=== PATIENT | male | born 1955 | race Caucasian/White ===

== ENCOUNTER → 2016-08-19 | Outpatient (CLI) | payer BC ==
[~2016-08-19] MED LIST: ALBU17IN INH; ALBU83IN INH; ALBUTEROL LIQ INH; ASPI81TA45 PO; ASPI81TA83 OR; ATROVENT0.02% INH; BUDE0.5S IN; DELTASONE PO; DOXY100T OR; DOXY100T16 PO; DULE200A IN; DUONSOL INH; FOLI1TAB2 PO; HYDR12.55 PO; HYDR25TA6 OR; IPRASOL4 INH; ISOVUE-370 76% 100ML VIAL (Q9967) As Ordered ONE; K-TA10TA2 PO; MELO7.5T6 PO; MYLASUS6 PO; NICO14DI3 TD; No Historical Meds; POTA595T8 PO; PRED20TA OR; PRED20TA PO; PREDNISONE PO; TIOT18INH INH; TYLE325T5 PO; VITA-5 PO; VITA100T OR; VITA100T2 PO; ZITH500T OR; dulera INH
--- NOTE | 2016-08-19 08:21 | REP ---
Clinical: Shortness of breath with weight loss and high risk factors. Technique: Axial contrast enhanced images from the thoracic inlet to the upper abdomen using 100 ml Isovue 370 intravenous contrast material with coronal and sagittal re-formations. Comparison: 02/01/2015. Findings: The lung pascal appear symmetric and well-aerated. Subtle early bronchiectasis cannot be excluded. Very subtle small areas of non solid/ground-glass opacities are identified in the upper lobes with the most prominent such area identified at the basilar right upper lobe (image 46) and measures roughly 9.5 mm maximal diameter. No further consolidation, nodule or mass lesion. No pleural effusion/reaction or pneumothorax. Mediastinum demonstrates a normal heart/pericardium and thoracic aorta. No axillary, hilar, or mediastinal adenopathy is appreciated. Musculoskeletal structures demonstrate age-related change without focal osseous abnormality. Atrophic right kidney incompletely evaluated. Impression: 1. Very subtle a few small non solid opacities may reflect changes related to pneumonia / bronchitis. Largest and most defined areas noted in the basilar right upper lobe measuring 9.5 mm maximal diameter. 6-month follow-up may be warranted given the patient's high risk factors. 2. No further significant pulmonary parenchymal or mediastinal process appreciated. 3. Atrophic right kidney incompletely evaluated. Signed by Gautam Rader MD 08/19/2016 08:12 A
== END ==
LOC: M RAD 06:54
PROVIDERS: ATTEND Internal Medicine Medical Oncology
DX: R91.8 Other nonspecific abnormal finding of lung field (principal)
CPT/HCPCS: 71260; Q9967

== ENCOUNTER → 2016-11-12 | Outpatient (CLI) | payer BC ==
[~2016-11-12] MED LIST changes: -ISOVUE-370 76% 100ML VIAL (Q9967) As Ordered ONE
--- NOTE | 2016-11-12 08:31 | REP ---
CT of the chest without IV contrast: Comparisons are 08/19/2016 and 02/01/2015. The upper lobe ground-glass opacities identified on 08/19/2016 have resolved and are no longer present. This is compatible with transient infiltrates. There are no new infiltrates. No pleural effusions. No new nodules or masses. There is no mediastinal or axillary lymphadenopathy. In the absence of IV contrast the study is insensitive for hilar adenopathy. The unenhanced thoracic aorta is unremarkable. Cardiac size is normal. Upper abdomen: There is marked right renal atrophy, unchanged. Visualized portion of the left kidney is unremarkable. Visualized portions of the unenhanced liver, gallbladder, pancreas and spleen are unremarkable. Impression: Essentially negative CT scan of the chest. Chronic marked right renal atrophy is again noted. The bilateral upper lobe ground-glass densities noted on the comparison study of 08/19/2016 are no longer present, compatible with transient infiltrates. Signed by Jonah Rutledge MD 11/12/2016 08:22 A
== END ==
LOC: M RAD 06:55
PROVIDERS: ATTEND Internal Medicine Pulmonary Disease
DX: R91.1 Solitary pulmonary nodule (principal)

== ENCOUNTER 2016-12-10 07:45 | Emergency (ER) | payer BC ==
[2016-12-10] MEDS ORDERED: FLOM5CAP PO (08:05)
[2016-12-10] MEDS ORDERED: FINA5TAB2 PO (08:05)
[2016-12-10] MEDS ORDERED: PROP60TA14 PO (08:05)
[2016-12-10] MEDS ORDERED: BUPR1TAB52 PO (08:05)
[2016-12-10] MEDS ORDERED: ALBUTEROL SULFATE 2.5 MG/0.5 ML INH NEB SOLN INH ONE (08:15)
[2016-12-10] MEDS ORDERED: IPRATROPIUM 0.5MG/ALBUTEROL 2.5MG INH SOL UD 3ML (DUONEB)(J7620) NEB ONE ×2 (08:15→09:15)
[2016-12-10] MEDS ORDERED: methylPREDNISolone INJ 125 MG/2 ML VIAL (J2930) IV ONE (08:15)
[2016-12-10 08:21] LABS: BASO # 0.1 K/mm3 (0.0-0.2); BASO % 0.9 % (0.0-1.0); EOS # 0.3 K/mm3 (0.0-0.50); EOS % 4.5 % (0.0-3.0); LARGE UNSTAINED CELL # 0.1 K/mm3 (0.0-0.4); LARGE UNSTAINED CELL % 1.4 % (0.0-4.0); LYMPH # 1.6 K/mm3 (1.5-4.5); LYMPH % 22.8 % (24.0-44.0); MEAN CORPUSCULAR HEMOGLOBIN 33.4 pg (27.0-33.0); MEAN CORPUSCULAR HGB CONC 33.3 g/dl (32.0-36.5); MEAN CORPUSCULAR VOLUME 100.3 fl (80.0-96.0); MONO # 0.7 K/mm3 (0.0-0.8); MONO % 9.8 % (0.0-5.0); NEUTROPHILS # 4.1 K/mm3 (1.8-7.7); NEUTROPHILS % 60.6 % (36.0-66.0); PLATELET COUNT, AUTOMATED 274 k/mm3 (150-450); RED CELL DISTRIBUTION WIDTH 12.2 % (11.5-14.5); WHITE BLOOD COUNT 6.7 K/mm3 (4.0-10.0)
[2016-12-10 08:22] LABS: ABG BASE EXCESS 0.7 (-2.0-2.0); ABG HCO3 25.6 MEQ/L (22.0-26.0); ABG PARTIAL PRESSURE CO2 42.1 mmHg (35.0-45.0); ABG PARTIAL PRESSURE O2 94.6 mmHg (75.0-100.0); ABG STANDARD HCO3 25.1 MEQ/L (22.0-26.0); ABG TOTAL CO2 26.9 MEQ/L (23.0-31.0); ABG pH (ARTERIAL) 7.402 UNITS (7.350-7.450)
--- NOTE | 2016-12-10 08:24 | REP ---
Clinical: Cough. Dyspnea . Comparison: 04/11/2016 . Findings: The mediastinum and cardiac silhouette are stable and within normal limits for portable technique. The lung pascal are clear without acute consolidation, effusion, or pneumothorax. Skeletal structures are intact. Impression: Normal portable chest x-ray Signed by Gautam Rader MD 12/10/2016 08:16 A
[2016-12-10 08:48] LABS: ALBUMIN 3.5 GM/DL (3.2-5.2); ALBUMIN/GLOBULIN RATIO 1.09 (1.00-1.93); ALKALINE PHOSPHATASE 85 U/L (45-117); ALT/SGPT 21 U/L (12-78); ANION GAP 5 MEQ/L (8-16); AST/SGOT 10 U/L (15-37); BILIRUBIN,DIRECT 0.1 MG/DL (0.0-0.2); BILIRUBIN,TOTAL 0.5 MG/DL (0.2-1.0); BLOOD UREA NITROGEN 14 MG/DL (7-18); CARBON DIOXIDE LEVEL 29 MEQ/L (21-32); CHLORIDE LEVEL 104 MEQ/L (98-107); CREATININE FOR GFR 1.19 MG/DL (0.70-1.30); GLOMERULAR FILTRATION RATE > 60.0 (>49); GLUCOSE, FASTING 91 MG/DL (80-110); SODIUM LEVEL 138 MEQ/L (136-145); THYROXINE (T4) 9.1 UG/DL (4.5-12.0); TOTAL PROTEIN 6.7 GM/DL (6.4-8.2)
[2016-12-10] MEDS ORDERED: ISOVUE-370 76% 100ML VIAL (Q9967) As Ordered ONE (09:19)
--- NOTE | 2016-12-10 10:06 | REP ---
Clinical: Acute chest pain. Technique: Axial contrast enhanced images from the thoracic inlet to the upper abdomen using 100 ml Isovue 370 intravenous contrast material with coronal and sagittal re-formations. Findings: Satisfactory enhancement of the pulmonary vasculature is achieved and no filling defects are identified to suggest pulmonary embolus. Mild diffuse emphysematous changes are suggested without focal consolidation, significant nodule or mass lesion. No pleural effusion. Mild bronchiectasis noted. No pneumothorax. A small left posterior diaphragmatic hernia/eventration is appreciated. Atherosclerotic changes to the thoracic aorta and coronary arteries noted without aortic aneurysm/dissection or cardiomegaly. No pericardial effusion. No adenopathy. Musculoskeletal structures intact. Impression: No evidence for pulmonary embolus. Mild diffuse emphysematous changes. No acute pleuroparenchymal or mediastinal process. Signed by Gautam Rader MD 12/10/2016 09:58 A
[2016-12-10 10:39] VITALS: O2SAT 91
[2016-12-10] MEDS ORDERED: PRED20TA PO (10:42)
[2016-12-10] MEDS ORDERED: MOXI1TAB PO (10:46)
[2016-12-10 11:12] VITALS: BP 112/76
--- NOTE | 2016-12-10 12:19 | ECGEPIP ---
Stationary ECG Study [facility] - ED Test Date: 2016-12-10 Pat Name: DANG QUINONES Department: Room: - Gender: M Stock Pitcher: JT : [id number] Requested By: Konstantin Rboertson Order Number: [id number] Reading MD: Gretchen De La Cruz Measurements Intervals [place] Rate: 79 P: 78 IN: 164 QRS: 66 QRSD: 85 T: 72 QT: 367 QTc: 423 Interpretive Statements SINUS RHYTHM RIGHT VENTRICULAR CONDUCTION DELAY DECREASED RATE 02/09/16 Electronically Signed On 12-10-2016 12:19:13 EDT by Gretchen De La Cruz
== END 2016-12-10 11:17 | disposition home or self-care (01) ==
LOC: M ED 08:40
DX: J20.9 Acute bronchitis, unspecified (principal); J44.1 Chronic obstructive pulmonary disease with (acute) exacerbation; Z90.89 Acquired absence of other organs; Z79.51 Long term (current) use of inhaled steroids; Z79.82 Long term (current) use of aspirin; Z79.899 Other long term (current) drug therapy
CPT/HCPCS: 36415; 36600; 71010; 71275; 80048; 80076; 82550; 82553; 82803; 83605; 83880; 84436; 84443; 85025; 87040; 87804; 93005; 93041; 94640; 96374; 99284; J2930; Q9967

== ENCOUNTER 2017-01-17 00:06 | Inpatient (IN) | payer BC ==
[~2017-01-17] VITALS: Ht 162.6 cm; Wt 49.1 kg
[~2017-01-17 00:06] MED LIST changes: +BUPR1TAB52 PO; +FINA5TAB2 PO; +FLOM5CAP PO; -FOLI1TAB2 PO; +FOLI1TAB4 PO; -MELO7.5T6 PO; +MELO7.5T7 PO; +MOXI1TAB PO; +PROP60TA14 PO
[2017-01-17] MEDS ORDERED: IPRATROPIUM 0.5MG/ALBUTEROL 2.5MG INH SOL UD 3ML (DUONEB)(J7620) As Ordered ONE ×2 (00:15→00:30)
[2017-01-17 00:35] LABS: ABG PARTIAL PRESSURE CO2 44.3 mmHg (35.0-45.0); ABG PARTIAL PRESSURE O2 212.7 mmHg (75.0-100.0); ABG STANDARD HCO3 27.2 MEQ/L (22.0-26.0); ABG TOTAL CO2 29.4 MEQ/L (23.0-31.0); ABG pH (ARTERIAL) 7.419 UNITS (7.350-7.450)
[2017-01-17] MEDS: IPRATROPIUM 0.5MG/ALBUTEROL 2.5MG INH SOL UD 3ML (DUONEB)(J7620) NEB PRN ×2 (00:46→00:47)
[2017-01-17 00:52] LABS: BASO # 0.1 K/mm3 (0.0-0.2); BASO % 0.8 % (0.0-1.0); EOS # 0.3 K/mm3 (0.0-0.50); EOS % 4.4 % (0.0-3.0); LARGE UNSTAINED CELL # 0.1 K/mm3 (0.0-0.4); LARGE UNSTAINED CELL % 1.7 % (0.0-4.0); LYMPH # 2.7 K/mm3 (1.5-4.5); LYMPH % 33.3 % (24.0-44.0); MEAN CORPUSCULAR HEMOGLOBIN 33.7 pg (27.0-33.0); MEAN CORPUSCULAR HGB CONC 33.3 g/dl (32.0-36.5); MEAN CORPUSCULAR VOLUME 101.1 fl (80.0-96.0); MONO # 0.8 K/mm3 (0.0-0.8); MONO % 10.5 % (0.0-5.0); NEUTROPHILS # 3.8 K/mm3 (1.8-7.7); NEUTROPHILS % 49.3 % (36.0-66.0); PLATELET COUNT, AUTOMATED 312 k/mm3 (150-450); RED CELL DISTRIBUTION WIDTH 12.7 % (11.5-14.5); WHITE BLOOD COUNT 7.7 K/mm3 (4.0-10.0)
[2017-01-17 01:11] LABS: ANION GAP 1 MEQ/L (8-16); BLOOD UREA NITROGEN 17 MG/DL (7-18); CALCIUM LEVEL 8.6 MG/DL (8.8-10.2); CARBON DIOXIDE LEVEL 35 MEQ/L (21-32); CHLORIDE LEVEL 102 MEQ/L (98-107); CREATININE FOR GFR 1.17 MG/DL (0.70-1.30); GLOMERULAR FILTRATION RATE > 60.0 (>49); GLUCOSE, FASTING 82 MG/DL (80-110); POTASSIUM SERUM 4.3 MEQ/L (3.5-5.1); SODIUM LEVEL 138 MEQ/L (136-145)
[2017-01-17] MEDS ORDERED: IPRATROPIUM 0.5MG/ALBUTEROL 2.5MG INH SOL UD 3ML (DUONEB)(J7620) NEB ONE (05:15)
[2017-01-17] MEDS ORDERED: VITA100072 PO (05:28)
[2017-01-17] MEDS ORDERED: PROP40TA PO (05:28)
[2017-01-17] MEDS ORDERED: ASPI81TA21 PO (05:28)
[2017-01-17] MEDS ORDERED: SPIR1CAP INH (05:28)
[2017-01-17] MEDS ORDERED: BUPR100T3 PO (05:28)
[2017-01-17] MEDS ORDERED: PRED10TA2 PO (05:28)
--- NOTE | 2017-01-17 05:50 | ECGEPIP ---
Stationary ECG Study [facility] - ED Test Date: 2017-01-17 Pat Name: DANG QUINONES Department: Room: - Gender: M Roll Picker: PadillaB: [id number] Requested By: EDNA Craig Order Number: [id number] Reading MD: Gen Cain Measurements Intervals [place] Rate: 87 P: 82 SD: 152 QRS: 65 QRSD: 78 T: 61 QT: 359 QTc: 433 Interpretive Statements SINUS RHYTHM POSSIBLE LEFT ATRIAL ENLARGEMENT INC. RBBB EARLY REPOLARIZATION Electronically Signed On 01-17-2017 5:50:30 EDT by Gen Cain
--- NOTE | 2017-01-17 06:27 | HPEPDOC ---
General Date of Admission Primary Care Physician: ANNITA LOMAX MD Attending Physician: FOREIGN GAMBOA MD Chief Complaint The patient is a 61-year-old male admitted with a reason for visit of SOB. Source: Patient Exam Limitations: No limitations Timing/Duration: 24 hours Severity: Severe Associated Symptoms: Cough, Malaise, Shortness of breath History of Present Illness 61-year-old male, history of COPD not on home oxygen, presented with shortness of breath, cough, dyspnea on exertion for last 1 day. Denies fever, chills, Long travel, sick contact. He has been taking the inhalers and prednisone daily and has a regular follow with pulmonary physician, but his symptoms did not improve Home Medications Scheduled (Bupropion HCl Sr) 100 Mg Tab, 100 MG PO BID, (Reported) Aspirin (Aspir-Low) 81 Mg Tab, 81 MG PO DAILY, (Reported) Cyanocobalamin (Vitamin B12) 1,000 Mcg Tab, 1,000 MCG PO DAILY, (Reported) Finasteride (Finasteride) 5 Mg Tab, 5 MG PO DAILY, (Reported) Prednisone (Prednisone) 10 Mg Tab, 10 MG PO DAILY, (Reported) Propranolol HCl (Propranolol HCl) 40 Mg Tab, 40 MG PO DAILY, (Reported) Tamsulosin Hydrochloride (Flomax) 0.4 Mg Cap, 0.4 MG PO DAILY, (Reported) Thiamine HCl (Vitamin B-1) 100 Mg Tab, 100 MG PO DAILY, (Reported) Tiotropium [place] Monohydrate (Spiriva Handihaler) 18 Mcg Cap, 1 INHALATION INH DAILY, (Reported) Scheduled PRN Albuterol Sulfate (Ventolin Hfa) 200 Puff/8 Gm Aers, 2 PUFF INH Q4H PRN for SHORTNESS OF BREATH, (Reported) Albuterol/Ipratropium (Ipratropium [place]/Albut 0.5-2.5 (3) mg/3Ml) 1 Julio Cesar Julio Cesar, 1 JULIO CESAR INH QID PRN for SHORTNESS OF BREATH, (Reported) Allergies Coded Allergies: No Known Allergies (Verified , 01/20/11) Past Medical History Medical History COPD Surgical History None Family History Significant Family History: No pertinent family hx Social History * Smoker: Denies Alcohol: Denies Drugs: denies Recent Travel/Sick Contacts: Denies: Recent travel, Recent sick contacts Psychosocial History: No pertinent psych hx Review of Symptoms Constitutional: Reports: Malaise, Fatigue, Denies: Chills, Fever, Night Sweats Eyes: Denies: Pain, Vision change ENT: Denies: Head Aches, Ear Pain, Dysphagia Skin: Denies: Rash, Lesions, Breakdown Pulmonary: Reports: Dyspnea, Cough Cardiovascular: Denies: Chest Pain, Palpitations, Orthopnea, Paroxysmal Noc. Dyspnea, Lt Headedness Gastrointestinal: Denies: Nausea, Vomiting, Abdominal Pain, Diarrhea Genitourinary: Denies: Dysuria, Frequency, Incontinence, Retention Hematologic: Denies: Bruising, Bleeding Excessively Musculoskeletal: Denies: Neck Pain, Back Pain, Joint Pain, Muscle Pain, Spasms Neurological: Denies: Weakness, Numbness, Change in speech, Confusion Psych: Reports: Mood Normal, Denies: Depression, Memory Issues Physical Examination General Exam: Positive: Alert, No Acute Distress Eye Exam: Positive: PERRLA, Conjunctiva & lids normal, EOMI, Negative: Sclera icteric ENT Exam: Positive: Atraumatic, Mucous membr. moist/pink, Pharynx Normal Neck Exam: Positive: Supple, Negative: JVD, thyromegaly Chest Exam: Positive: Rhonchi, Wheezing Heart Exam: Positive: Rate Normal, Regular Rhythm, Normal S1, Normal S2, Negative: Murmurs, Rubs Telemetry: Positive: No significant arrhythmia Abdomen Exam: Positive: Normal bowel sounds, Soft, Negative: Tenderness, Hepatospenomegaly Extremity Exam: Positive: Normal pulses, Negative: Clubbing, Cyanosis, Edema Skin Exam: Positive: Nl turgor and temperature, Negative: Breakdown, Lesion Neuro Exam: Positive: Normal Speech, Cranial Nerves 3-12 NL, Reflexes 2+ Psych Exam: Positive: Mental status NL, Mood NL, Oriented x 3 Vital Signs Vital Signs Date Time Temp Pulse Resp B/P (MAP) Pulse Ox O2 Delivery O2 Flow Rate FiO2 01/17/17 05:41 94 131/82 (98) 95 01/17/17 01:00 Nasal Cannula 4.0 01/17/17 00:20 40 01/17/17 00:13 97.0 20 Laboratory Data Labs 24H Laboratory Tests 2 01/17/17 00:31: Blood Gas Bicarbonate Standard 27.2H, Arterial Blood pH 7.419, Arterial Blood Partial Pressure CO2 44.3, Arterial Blood Partial Pressure O2 212.7H, Arterial Blood Total CO2 29.4, Arterial Blood HCO3 28.0H, Arterial Blood Base Excess 3.0H , Arterial Blood Oxygen Saturation 99.4H 01/17/17 00:33: White Blood Count 7.7, Red Blood Count 4.35, Hemoglobin 14.6, Hematocrit 43.9, Mean Corpuscular Volume 101.1H, Mean Corpuscular Hemoglobin 33.7H, Mean Corpuscular Hemoglobin Concent 33.3, Red Cell Distribution Width 12.7, Platelet Count 312, Neutrophils (%) (Auto) 49.3, Lymphocytes (%) (Auto) 33.3, Monocytes ( %) (Auto) 10.5H, Eosinophils (%) (Auto) 4.4H, Basophils (%) (Auto) 0.8, Neutrophils # (Auto) 3.8, Lymphocytes # (Auto) 2.7, Monocytes # (Auto) 0.8, Eosinophils # (Auto) 0.3, Basophils # (Auto) 0.1, Large Unclassified Cells % 1.7 , Large Unclassified Cells # 0.1, Anion Gap 1L, Glomerular Filtration Rate > 60.0, Lactic Acid Level 0.5, Blood Urea Nitrogen 17, Creatinine 1.17, Sodium Level 138, Potassium Level 4.3, Chloride Level 102, Carbon Dioxide Level 35H, Calcium Level 8.6L, Total Creatine Kinase 49, Creatine Kinase MB 2.2, Creatine Kinase MB Relative Index 4.48H, Troponin I < 0.02, B-Type Natriuretic Peptide 20.0 CBC/BMP Laboratory Tests 01/17/17 00:33 Red Blood Count 4.35, Mean Corpuscular Volume 101.1 H, Mean Corpuscular Hemoglobin 33.7 H, Mean Corpuscular Hemoglobin Concent 33.3, Red Cell Distribution Width 12.7, Neutrophils (%) (Auto) 49.3, Lymphocytes (%) (Auto) 33.3, Monocytes (%) (Auto) 10.5 H, Eosinophils (%) (Auto) 4.4 H, Basophils (%) ( Auto) 0.8, Neutrophils # (Auto) 3.8, Lymphocytes # (Auto) 2.7, Monocytes # (Auto ) 0.8, Eosinophils # (Auto) 0.3, Basophils # (Auto) 0.1, Calcium Level 8.6 L, Total Creatine Kinase 49 Microbiology Microbiology 01/17/17 Blood Culture, Received Pending 01/17/17 Blood Culture, Received Pending Assessment/Plan 61-year-old male, a history of COPD not on home oxygen, presented with with this shortness of breath, likely due to COPD exacerbation Problems (1) Tobacco abuse Problem Text: Smoking cessation counseling Nicotine patch 14 mg daily (2) Acute respiratory failure with hypoxia Status: Acute Problem Text: As started. Oxygen DuoNeb IV Solu-Medrol. Troponin EKG unremarkable. We will get echocardiogram, ABG normal antibiotic was started due to severe COPD Plan / VTE VTE Prophylaxis Ordered?: Yes Plan Diet: Continue Current Activity: Continue Current Medications: Start Antibiotics, Start Steroids Diagnostics: Repeat Labs in AM, TTE Anticipated Discharge: Home NEO GOLDSTEIN MD Jan 17, 2017 06:27
[2017-01-17] MEDS ORDERED: methylPREDNISolone INJ 125 MG/2 ML VIAL (J2930) IV SCH (07:00)
[2017-01-17] MEDS ORDERED: IPRATROPIUM 0.5MG/ALBUTEROL 2.5MG INH SOL UD 3ML (DUONEB)(J7620) NEB PRN (07:30)
[2017-01-17 08:00] VITALS: BP 125/72
[2017-01-17] MEDS ORDERED: IPRATROPIUM 0.5MG/ALBUTEROL 2.5MG INH SOL UD 3ML (DUONEB)(J7620) NEB SCH (08:00)
[2017-01-17] MEDS: IPRATROPIUM 0.5MG/ALBUTEROL 2.5MG INH SOL UD 3ML (DUONEB)(J7620) NEB SCH ×3 (08:08→20:00)
[2017-01-17] MEDS: NICOTINE 14 MG/24 HR TRANSDERMAL TD SCH (09:00)
[2017-01-17] MEDS ORDERED: PANTOPRAZOLE 40MG INJ (PROTONIX) (C9113) IV SCH (09:00)
[2017-01-17] MEDS ORDERED: predniSONE 10 MG TAB PO SCH (09:00)
[2017-01-17] MEDS: buPROPion (WELLBUTRIN SR) 100 MG SR TAB PO SCH ×2 (10:08→20:51)
[2017-01-17] MEDS: ASPIRIN 81 MG ENTERIC TAB PO SCH (10:08)
[2017-01-17] MEDS: TAMSULOSIN 0.4 MG CAP PO SCH (10:08)
[2017-01-17] MEDS: CYANOCOBALAMIN 500 MCG TAB PO SCH (10:09)
[2017-01-17] MEDS: FINASTERIDE 5 MG TAB PO SCH (10:09)
[2017-01-17] MEDS: THIAMINE 100 MG TAB PO SCH (10:09)
[2017-01-17] MEDS: methylPREDNISolone INJ 125 MG/2 ML VIAL (J2930) IV SCH ×3 (10:10→23:17)
[2017-01-17] MEDS: LevoFLOXacin IV 500 MG in APPROPRIATE DILUENT 1 EA IV SCH (10:11)
[2017-01-17] MEDS: PROPRANOLOL 20 MG TAB PO SCH (10:13)
[2017-01-17] MEDS: TIOTROPIUM INHALER/CAPSULE (SPIRIVA) INH SCH (11:28)
[2017-01-17 12:00] VITALS: BP 142/75
--- NOTE | 2017-01-17 12:12 | REP ---
Clinical: Dyspnea. Comparison: 12/10/2016. Findings: Stable COPD and emphysematous changes are again noted. No acute consolidation, effusion, or pneumothorax. Mediastinum and cardiac silhouette are stable. Skeletal structures intact. Impression: Stable COPD and emphysematous changes. No acute cardiopulmonary process appreciated. Signed by Gautam Rader MD 01/17/2017 07:45 A
[2017-01-17] MEDS ORDERED: SLF 3 ML SYR IV PRN (15:00)
--- NOTE | 2017-01-17 15:15 | IPNPDOC ---
Text Note Date of Service The patient was seen on 01/17/17. NOTE Subjective: Patient is a 61 year old male with a PMHx of COPD (steroid dependent, not oxygen dependent), HTN, BPH and Depression who presented to the ER with complaints of shortness of breath associated with a productive cough. He notes that he has been treated for COPD exacerbations before in the past. They frequently occur in the summer months. He notes that he has been started on Prednisone at baseline for the summer. Patient was admitted for likely COPD exacerbation. Patient was seen and examined at the bedside. He notes improvement in his breathing. He still has a cough. Objective: Vitals (See below) General: Lying in bed, no acute distress, comfortable, AAOx3 HEENT: NC, AT CVS: RRR, +S1S2 Lungs: Fair air entry b/l, mild expiratory wheezing Abdomen: Soft, ND, NT, +BSx4 Extremities: +PPx4, - Edema, - Calf tenderness Assessment and plan: 1. Shortness of breath - likely 2/2 acute COPD exacerbatino - Presented with SOB, productive cough and wheezing - Physical currently reveals mild wheezing; improved from admission - Requires supplemental oxygen at this time; not oxygen dependent at home - Labs unrevealing; ABG without any evidence of CO2 retention - CXR 01/17: Stable COPD and emphysematous changes - s/p Soumedrol loading dose - c/w Solumedrol, Levaquin (Day #1), Spiriva and Duoneb PRN - Will add Advair 2. HTN - c/w Atenolol with holding parameters - Will restart at lower dose 3. BPH - c/w Finasteride and Tamsulosin 4. Depression - c/w Bupropion 5. Smoking dependence - c/w Nicotine patch 6. GI prophylaxis - will discontinue protonix IV - start protonix PO 7. DVT prophylaxis - Will start Heparin SQ VS,Fishbone, I+O VS, Fishbone, I+O Laboratory Tests 01/17/17 00:33 Red Blood Count 4.35, Mean Corpuscular Volume 101.1 H, Mean Corpuscular Hemoglobin 33.7 H, Mean Corpuscular Hemoglobin Concent 33.3, Red Cell Distribution Width 12.7, Neutrophils (%) (Auto) 49.3, Lymphocytes (%) (Auto) 33.3, Monocytes (%) (Auto) 10.5 H, Eosinophils (%) (Auto) 4.4 H, Basophils (%) ( Auto) 0.8, Neutrophils # (Auto) 3.8, Lymphocytes # (Auto) 2.7, Monocytes # (Auto ) 0.8, Eosinophils # (Auto) 0.3, Basophils # (Auto) 0.1, Calcium Level 8.6 L, Total Creatine Kinase 49 Vital Signs Date Time Temp Pulse Resp B/P (MAP) Pulse Ox O2 Delivery O2 Flow Rate FiO2 01/17/17 12:17 Nasal Cannula 3.0 01/17/17 12:00 97.8 94 20 142/75 (97) 95 01/17/17 00:20 40 FOREIGN GAMBOA MD Jan 17, 2017 15:15
[2017-01-17 16:00] VITALS: BP 116/68
[2017-01-17 19:46] VITALS: BP 130/70
[2017-01-17] MEDS: ADVAIR DISKUS 250/50 INH PWD INH SCH (20:49)
[2017-01-17] MEDS: HEPARIN SOD (PORCINE) 5000 UNITS/ML VIAL SQ SCH (20:51)
[2017-01-17] MEDS: SLF 3 ML SYR IV SCH (20:55)
--- NOTE | 2017-01-17 22:47 | ECHO ---
DATE OF PROCEDURE: 01/17/2017 REFERRING PHYSICIAN: Dr. Landon De Leon INDICATION: Dyspnea. HEIGHT: 163 cm WEIGHT: 50 kg MEASUREMENTS Aortic root: 3.0 cm LVOT: 2.2 cm Left atrium: 2.9 cm Ventricular septum: 1.00 cm Posterior wall: 1.04 cm Left ventricle diastole: 4.0 cm Inferior vena cava: 1.7 cm DOPPLER MEASUREMENTS: Aortic valve velocity: 117 cm/s LVOT velocity: 62.4 cm/s Mitral E velocity: 54.3 cm/s Mitral A velocity: 73.5 cm/s Mitral deceleration time: 187 ms Very mild pulmonic regurgitation Pulmonary artery systolic pressure: 46 mmHg by pulmonary acceleration time method. MITRAL ANNULAR TISSUE DOPPLER: E-prime septal: 7.4 cm/s E-prime lateral: 10.1 cm/s DESCRIPTION: Rhythm was sinus. This was a moderately technically difficult echocardiogram. No parasternal views were available. No pericardial effusion. CONCLUSIONS: 1. Normal left ventricle size and wall thickness. Normal LV regional wall motion and wall thickening. Normal LV systolic function. LVEF 65% by visual estimate. Normal LV diastolic function for age. 2. Suggestive of moderate elevation of pulmonary artery systolic pressure (46 mmHg). Normal right ventricle size and systolic function. 3. Mild aortic valve sclerosis of a 3-cuspid aortic valve. 4. Moderately technically difficult echocardiogram.
[2017-01-17] MEDS ORDERED: VANCOMYCIN HCL 1,000 MG, VIAL MATE ADAPTER 1 EACH in D5W 250 ML IV ONE (23:00)
[2017-01-17 23:59] VITALS: BP 121/75
[2017-01-18] MEDS: IPRATROPIUM 0.5MG/ALBUTEROL 2.5MG INH SOL UD 3ML (DUONEB)(J7620) NEB SCH ×4 (01:24→20:00)
--- NOTE | 2017-01-18 02:56 | PHACANCOPD ---
PHARMACY VANCOMYCIN DOSING Pt Demographics Demographics Patient Age:61 , Weight:48.300 , Gender: male Adjusted Body Weight Date: 01/18/17, Adjusted Body Weight: [48.3] Kg ACTUAL WEIGHT Vancomycin Vancomycin indication: COPD EXACERBATION Vancomycin Target Ranges: 10-20 mcg/ml Vancomycin Load Y/N: No Load Dose Date Time Vancomycin Load Dose: Date: Time: Vancomycin Dose Date: 01/18/17. Current Vancomycin Dose: [1 GM@2300,THEN 750MG Q12H@1100] Intermittent Dosing?: No Labs Micro Microbiology 01/17/17 Blood Culture - Preliminary, Resulted 01/17/17 Blood Culture - Preliminary, Resulted No growth after 24 hours . All specim... Creatinine Clearance Date:01/18/17. Creatinine Clearance: [44.15].CALCULATED Pending Labs Vancomycin trough for 01/19@1000 Assessment and Plan Maintaining Current Dose?: Yes Reason for dose change: No Dose Change Pharmacist Note Pharmacist Note Date: 01/18/17. Pharmacist note:Patient admitted w/COPD exacerbation:61 YOM,SCR= 1.17: calculated CRCL= 44.15,wt=48.3kg.: administered 1 GM Vanco@2316 on 01/17, followed with a 750mg iv Q12h regimen. First trough to be drawn prior to the fourth dose (01/19@1000):also receiving Levofloxacin 500mg IV q24h@0900: will continue ti follow levels and labs. [facility] Jan 18, 2017 02:56
[2017-01-18 04:00] VITALS: BP 120/65
[2017-01-18 06:00] LABS: MEAN CORPUSCULAR HEMOGLOBIN 33.9 pg (27.0-33.0); MEAN CORPUSCULAR HGB CONC 33.3 g/dl (32.0-36.5); MEAN CORPUSCULAR VOLUME 101.9 fl (80.0-96.0); RED CELL DISTRIBUTION WIDTH 12.7 % (11.5-14.5); WHITE BLOOD COUNT 13.1 K/mm3 (4.0-10.0)
[2017-01-18] MEDS: SLF 3 ML SYR IV SCH ×3 (06:00→21:03)
[2017-01-18 06:26] LABS: ALBUMIN 3.1 GM/DL (3.2-5.2); ALBUMIN/GLOBULIN RATIO 1.03 (1.00-1.93); ALKALINE PHOSPHATASE 62 U/L (45-117); ALT/SGPT 18 U/L (12-78); ANION GAP 9 MEQ/L (8-16); AST/SGOT 8 U/L (15-37); BLOOD UREA NITROGEN 19 MG/DL (7-18); CALCIUM LEVEL 8.1 MG/DL (8.8-10.2); CARBON DIOXIDE LEVEL 24 MEQ/L (21-32); CHLORIDE LEVEL 105 MEQ/L (98-107); CREATININE FOR GFR 1.08 MG/DL (0.70-1.30); GLOMERULAR FILTRATION RATE > 60.0 (>49); GLUCOSE, FASTING 118 MG/DL (80-110); SODIUM LEVEL 138 MEQ/L (136-145); TOTAL PROTEIN 6.1 GM/DL (6.4-8.2)
[2017-01-18 06:28] LABS: BILIRUBIN,TOTAL 0.4 MG/DL (0.2-1.0)
[2017-01-18 07:35] VITALS: BP 128/68
[2017-01-18] MEDS: ADVAIR DISKUS 250/50 INH PWD INH SCH ×2 (07:45→19:55)
[2017-01-18] MEDS: TIOTROPIUM INHALER/CAPSULE (SPIRIVA) INH SCH (07:45)
[2017-01-18] MEDS: TAMSULOSIN 0.4 MG CAP PO SCH (08:54)
[2017-01-18] MEDS: LevoFLOXacin IV 500 MG in APPROPRIATE DILUENT 1 EA IV SCH (08:54)
[2017-01-18] MEDS: predniSONE 20 MG TAB PO SCH ×2 (08:55→21:03)
[2017-01-18] MEDS: CYANOCOBALAMIN 500 MCG TAB PO SCH (08:55)
[2017-01-18] MEDS: PANTOPRAZOLE 40MG TAB (PROTONIX) PO SCH (08:56)
[2017-01-18] MEDS: THIAMINE 100 MG TAB PO SCH (08:56)
[2017-01-18] MEDS: FINASTERIDE 5 MG TAB PO SCH (08:57)
[2017-01-18] MEDS: buPROPion (WELLBUTRIN SR) 100 MG SR TAB PO SCH ×2 (08:57→21:03)
[2017-01-18] MEDS: ASPIRIN 81 MG ENTERIC TAB PO SCH (08:57)
[2017-01-18] MEDS: PROPRANOLOL 20 MG TAB PO SCH (08:58)
[2017-01-18] MEDS: HEPARIN SOD (PORCINE) 5000 UNITS/ML VIAL SQ SCH ×2 (08:59→21:03)
[2017-01-18] MEDS: NICOTINE 14 MG/24 HR TRANSDERMAL TD SCH (08:59)
[2017-01-18 12:00] VITALS: BP 123/81
[2017-01-18] MEDS: VANCOMYCIN HCL 750 MG, VIAL MATE ADAPTER 1 EACH in D5W 250 ML IV SCH ×2 (12:00→23:15)
--- NOTE | 2017-01-18 12:08 | IPNPDOC ---
Text Note Date of Service The patient was seen on 01/18/17. NOTE Subjective: Patient is a 61 year old male with a PMHx of COPD (steroid dependent, not oxygen dependent), HTN, BPH and Depression who presented to the ER with complaints of shortness of breath associated with a productive cough. He notes that he has been treated for COPD exacerbations before in the past. They frequently occur in the summer months. He notes that he has been started on Prednisone at baseline for the summer. Patient was admitted for likely COPD exacerbation. Patient was seen and examined at the bedside. He notes that his breathing is doing better at baseline, but he does get very short of breath with ambulation. He still notes a mild cough. Objective: Vitals (See below) General: Lying in bed, no acute distress, comfortable, AAOx3 HEENT: NC, AT CVS: RRR, +S1S2 Lungs: Fair air entry b/l, mild expiratory wheezing Abdomen: Soft, ND, NT, +BSx4 Extremities: +PPx4, - Edema, - Calf tenderness Assessment and plan: 1. Shortness of breath - likely 2/2 acute COPD exacerbation - Presented with SOB, productive cough and wheezing - Physical currently reveals mild wheezing; improved from admission - Requires supplemental oxygen at this time; not oxygen dependent at home - Labs unrevealing; ABG without any evidence of CO2 retention - CXR 01/17: Stable COPD and emphysematous changes - s/p Soumedrol loading dose - c/w Solumedrol, Levaquin (Day #2), Spiriva, Advair and Duoneb PRN - Will transition to Prednisone PO today - Likely discharge tomorrow 2. HTN - BP well controlled - c/w Propranolol with holding parameters 3. BPH - c/w Finasteride and Tamsulosin 4. Depression - c/w Bupropion 5. Smoking dependence - c/w Nicotine patch 6. GI prophylaxis - c/w protonix 7. DVT prophylaxis - c/w Heparin SQ VS,Fishbone, I+O VS, Fishbone, I+O Laboratory Tests 01/18/17 05:23 Red Blood Count 3.99 L, Mean Corpuscular Volume 101.9 H, Mean Corpuscular Hemoglobin 33.9 H, Mean Corpuscular Hemoglobin Concent 33.3, Red Cell Distribution Width 12.7, Calcium Level 8.1 L, Aspartate Amino Transf (AST/SGOT) 8 L, Alanine Aminotransferase (ALT/SGPT) 18, Total Creatine Kinase 27 L, Alkaline Phosphatase 62, Total Bilirubin 0.4, Total Protein 6.1 L, Albumin 3.1 L Vital Signs Date Time Temp Pulse Resp B/P (MAP) Pulse Ox O2 Delivery O2 Flow Rate FiO2 01/18/17 08:58 92 120/65 01/18/17 08:00 Room Air 01/18/17 07:35 98.2 20 92 01/17/17 12:17 3.0 01/17/17 00:20 40 I&O- Last 24 Hours up to 6 AM 01/18/17 06:00 Intake Total 1120 ml Output Total 1525 ml Balance -405 ml FOREIGN GAMBOA MD Jan 18, 2017 12:08
[2017-01-18 16:00] VITALS: BP 131/67
[2017-01-18 19:55] VITALS: BP 139/75
[2017-01-19] MEDS: IPRATROPIUM 0.5MG/ALBUTEROL 2.5MG INH SOL UD 3ML (DUONEB)(J7620) NEB SCH ×4 (01:14→19:34)
[2017-01-19 04:00] VITALS: BP 157/80
[2017-01-19 05:13] LABS: MEAN CORPUSCULAR HEMOGLOBIN 33.9 pg (27.0-33.0); MEAN CORPUSCULAR VOLUME 102.9 fl (80.0-96.0); RED CELL DISTRIBUTION WIDTH 12.8 % (11.5-14.5)
[2017-01-19 05:37] LABS: ALBUMIN 2.8 GM/DL (3.2-5.2); ALBUMIN/GLOBULIN RATIO 1.04 (1.00-1.93); ALKALINE PHOSPHATASE 71 U/L (45-117); ALT/SGPT 21 U/L (12-78); ANION GAP 5 MEQ/L (8-16); AST/SGOT 9 U/L (15-37); BILIRUBIN,TOTAL 0.3 MG/DL (0.2-1.0); BLOOD UREA NITROGEN 19 MG/DL (7-18); CALCIUM LEVEL 7.9 MG/DL (8.8-10.2); CARBON DIOXIDE LEVEL 26 MEQ/L (21-32); CHLORIDE LEVEL 110 MEQ/L (98-107); CREATININE FOR GFR 1.15 MG/DL (0.70-1.30); GLOMERULAR FILTRATION RATE > 60.0 (>49); GLUCOSE, FASTING 106 MG/DL (80-110); POTASSIUM SERUM 4.1 MEQ/L (3.5-5.1); SODIUM LEVEL 141 MEQ/L (136-145); TOTAL PROTEIN 5.5 GM/DL (6.4-8.2)
[2017-01-19] MEDS: SLF 3 ML SYR IV SCH ×3 (05:58→21:48)
[2017-01-19] MEDS: TIOTROPIUM INHALER/CAPSULE (SPIRIVA) INH SCH (07:50)
[2017-01-19] MEDS: ADVAIR DISKUS 250/50 INH PWD INH SCH ×2 (07:50→19:34)
[2017-01-19 08:10] VITALS: BP 136/75
[2017-01-19] MEDS: NICOTINE 14 MG/24 HR TRANSDERMAL TD SCH (09:00)
[2017-01-19] MEDS: LevoFLOXacin IV 500 MG in APPROPRIATE DILUENT 1 EA IV SCH (09:25)
[2017-01-19] MEDS: ASPIRIN 81 MG ENTERIC TAB PO SCH (09:26)
[2017-01-19] MEDS: PROPRANOLOL 20 MG TAB PO SCH (09:26)
[2017-01-19] MEDS: HEPARIN SOD (PORCINE) 5000 UNITS/ML VIAL SQ SCH ×2 (09:26→21:47)
[2017-01-19] MEDS: TAMSULOSIN 0.4 MG CAP PO SCH (09:26)
[2017-01-19] MEDS: buPROPion (WELLBUTRIN SR) 100 MG SR TAB PO SCH ×2 (09:26→21:47)
[2017-01-19] MEDS: CYANOCOBALAMIN 500 MCG TAB PO SCH (09:27)
[2017-01-19] MEDS: PANTOPRAZOLE 40MG TAB (PROTONIX) PO SCH (09:27)
[2017-01-19] MEDS: FINASTERIDE 5 MG TAB PO SCH (09:27)
[2017-01-19] MEDS: predniSONE 20 MG TAB PO SCH ×2 (09:27→21:47)
[2017-01-19] MEDS: THIAMINE 100 MG TAB PO SCH (09:27)
[2017-01-19] MEDS: VANCOMYCIN HCL 750 MG, VIAL MATE ADAPTER 1 EACH in D5W 250 ML IV SCH ×2 (11:31→22:00)
--- NOTE | 2017-01-19 12:40 | IPNPDOC ---
Text Note Date of Service The patient was seen on 01/19/17. NOTE Subjective: Patient is a 61 year old male with a PMHx of COPD (steroid dependent, not oxygen dependent), HTN, BPH and Depression who presented to the ER with complaints of shortness of breath associated with a productive cough. He notes that he has been treated for COPD exacerbations before in the past. They frequently occur in the summer months. He notes that he has been started on Prednisone at baseline for the summer. Patient was admitted for likely COPD exacerbation. Patient was seen and examined at the bedside. His breathing continues to improve. He reports some SOB with ambulation, but otherwise close to his baseline. Objective: Vitals (See below) General: Lying in bed, no acute distress, comfortable, AAOx3 HEENT: NC, AT CVS: RRR, +S1S2 Lungs: Fair air entry b/l, no appreciable wheezing / rales / rhonchi Abdomen: Soft, ND, NT, +BSx4 Extremities: +PPx4, - Edema, - Calf tenderness Assessment and plan: 1. Shortness of breath - likely 2/2 acute COPD exacerbation - Presented with SOB, productive cough and wheezing - Physical currently reveals resolution of wheezing - Requires supplemental oxygen at this time; not oxygen dependent at home - Labs unrevealing; ABG without any evidence of CO2 retention - CXR 01/17: Stable COPD and emphysematous changes - s/p Soumedrol loading dose - c/w Levaquin (Day #3), Spiriva, Advair and Duoneb PRN - c/w Prednisone; will taper upon discharge 2. Positive blood cultures - likely 2/2 contaminant, less likely true positive - No reported fevers or chills - Blood cultures 01/17: 1 of 2 bottles positive with Gram positive cocci in pairs / chains - Repeat blood cultures 01/19 - pending - c/w Vancomycin for now 3. HTN - BP well controlled - c/w Propranolol with holding parameters 4. BPH - c/w Finasteride and Tamsulosin 5. Depression - c/w Bupropion 6. Smoking dependence - c/w Nicotine patch 7. GI prophylaxis - c/w protonix 8. DVT prophylaxis - c/w Heparin SQ Disposition: - Awaiting blood culture results to finalize and repeat blood cultures to reflect negative growth - Will c/w Prednisone PO and Levaquin PO VS,Fishbone, I+O VS, Fishbone, I+O Laboratory Tests 01/19/17 04:54 Red Blood Count 3.81 L, Mean Corpuscular Volume 102.9 H, Mean Corpuscular Hemoglobin 33.9 H, Mean Corpuscular Hemoglobin Concent 33.0, Red Cell Distribution Width 12.8, Calcium Level 7.9 L, Aspartate Amino Transf (AST/SGOT) 9 L, Alanine Aminotransferase (ALT/SGPT) 21, Alkaline Phosphatase 71, Total Bilirubin 0.3, Total Protein 5.5 L, Albumin 2.8 L Vital Signs Date Time Temp Pulse Resp B/P (MAP) Pulse Ox O2 Delivery O2 Flow Rate FiO2 01/19/17 09:26 82 134/74 01/19/17 08:10 99.3 18 94 Room Air 01/17/17 12:17 3.0 01/17/17 00:20 40 I&O- Last 24 Hours up to 6 AM 01/19/17 06:00 Intake Total 1080 ml Output Total 975 ml Balance 105 ml FOREIGN GAMBOA MD Jan 19, 2017 12:40
--- NOTE | 2017-01-19 15:40 | PHACANCOPD ---
PHARMACY VANCOMYCIN DOSING Pt Demographics Demographics Patient Age:61 , Weight:49.100 , Gender: male Adjusted Body Weight Date: 01/18/17, Adjusted Body Weight: [48.3] Kg ACTUAL WEIGHT Vancomycin Vancomycin indication: COPD EXACERBATION Vancomycin Target Ranges: 10-20 mcg/ml Vancomycin Load Y/N: No Load Dose Date Time Vancomycin Load Dose: Date: Time: Vancomycin Dose Date: 01/19/17. Current Vancomycin Dose: [750mg IV q12h@11] Date: 01/18/17. Current Vancomycin Dose: [1 GM@2300,THEN 750MG Q12H@1100] Intermittent Dosing?: No Labs Labs Vital Signs Label Value Date Time Patient Temperature 99.3 degrees F 01/19/17 0810 Temperature Source Temporal 01/19/17 0810 Item Value Date Time White Blood Count 13.1 K/mm3 H 01/18/17 0523 White Blood Count 14.0 K/mm3 H 01/19/17 0454 White Blood Count 7.7 K/mm3 01/17/17 0033 Creatinine 1.15 MG/DL 01/19/17 0454 Creatinine 1.08 MG/DL 01/18/17 0523 Vancomycin Level Trough 11.6 UG/ML 01/19/17 1028 Micro Microbiology 01/19/17 Blood Culture, Received Pending 01/19/17 Blood Culture, Received Pending 01/17/17 Blood Culture - Preliminary, Resulted 01/17/17 Blood Culture - Preliminary, Resulted No Growth after 48 hours. All Specime... Creatinine Clearance Date:01/18/17. Creatinine Clearance: [44.15].CALCULATED Pending Labs Vancomycin trough for 01/19@1000 Assessment and Plan Maintaining Current Dose?: Yes Reason for dose change: No Dose Change Pharmacist Note Pharmacist Note 01/19: Patient's trough came back at 11.6 today. He is within target range so we will continue Vancomycin 750mg IV q12h for now. We will continue to monitor and make adjustments as necessary. Date: 01/18/17. Pharmacist note:Patient admitted w/COPD exacerbation:61 YOM,SCR= 1.17: calculated CRCL= 44.15,wt=48.3kg.: administered 1 GM Vanco@2316 on 01/17, followed with a 750mg iv Q12h regimen. First trough to be drawn prior to the fourth dose (01/19@1000):also receiving Levofloxacin 500mg IV q24h@0900: will continue ti follow levels and labs. LENY CARRION PHARMACY Jan 19, 2017 15:40
[2017-01-19 16:43] VITALS: BP 130/77
[2017-01-19 20:00] VITALS: BP 135/75
[2017-01-20] MEDS: IPRATROPIUM 0.5MG/ALBUTEROL 2.5MG INH SOL UD 3ML (DUONEB)(J7620) NEB SCH ×2 (01:14→08:00)
[2017-01-20 04:45] VITALS: BP 168/82
[2017-01-20 05:25] LABS: MEAN CORPUSCULAR HEMOGLOBIN 34.2 pg (27.0-33.0); MEAN CORPUSCULAR HGB CONC 33.8 g/dl (32.0-36.5); MEAN CORPUSCULAR VOLUME 101.2 fl (80.0-96.0); RED CELL DISTRIBUTION WIDTH 12.8 % (11.5-14.5); WHITE BLOOD COUNT 11.7 K/mm3 (4.0-10.0)
[2017-01-20 05:54] LABS: ALBUMIN 2.8 GM/DL (3.2-5.2); ALBUMIN/GLOBULIN RATIO 1.04 (1.00-1.93); ALKALINE PHOSPHATASE 65 U/L (45-117); ALT/SGPT 22 U/L (12-78); ANION GAP 7 MEQ/L (8-16); AST/SGOT 8 U/L (15-37); BILIRUBIN,TOTAL 0.3 MG/DL (0.2-1.0); BLOOD UREA NITROGEN 14 MG/DL (7-18); CALCIUM LEVEL 8.1 MG/DL (8.8-10.2); CARBON DIOXIDE LEVEL 28 MEQ/L (21-32); CHLORIDE LEVEL 108 MEQ/L (98-107); CREATININE FOR GFR 1.11 MG/DL (0.70-1.30); GLOMERULAR FILTRATION RATE > 60.0 (>49); GLUCOSE, FASTING 104 MG/DL (80-110); SODIUM LEVEL 143 MEQ/L (136-145); TOTAL PROTEIN 5.5 GM/DL (6.4-8.2)
[2017-01-20] MEDS: SLF 3 ML SYR IV SCH ×2 (06:00→13:05)
[2017-01-20] MEDS ORDERED: LevoFLOXacin 500 MG TABLET PO SCH (06:00)
[2017-01-20 08:00] VITALS: BP 125/79
[2017-01-20] MEDS: ADVAIR DISKUS 250/50 INH PWD INH SCH (08:32)
[2017-01-20] MEDS: TIOTROPIUM INHALER/CAPSULE (SPIRIVA) INH SCH (08:32)
[2017-01-20] MEDS: HEPARIN SOD (PORCINE) 5000 UNITS/ML VIAL SQ SCH (09:00)
[2017-01-20] MEDS: NICOTINE 14 MG/24 HR TRANSDERMAL TD SCH (09:00)
--- NOTE | 2017-01-20 09:22 | IPNPDOC ---
Text Note Date of Service The patient was seen on 01/20/17. NOTE Subjective: Patient is a 61 year old male with a PMHx of COPD (steroid dependent, not oxygen dependent), HTN, BPH and Depression who presented to the ER with complaints of shortness of breath associated with a productive cough. He notes that he has been treated for COPD exacerbations before in the past. They frequently occur in the summer months. He notes that he has been started on Prednisone at baseline for the summer. Patient was admitted for likely COPD exacerbation. Patient was seen and examined at the bedside. No medical complaints today. Anxious to return home. Objective: Vitals (See below) General: Lying in bed, no acute distress, comfortable, AAOx3 HEENT: NC, AT CVS: RRR, +S1S2 Lungs: very mild wheezing, diminished breath sounds b/l Abdomen: Soft, ND, NT, +BSx4 Extremities: +PPx4, - Edema, - Calf tenderness Assessment and plan: 1. Shortness of breath - likely 2/2 acute COPD exacerbation - essentially resolved - Presented with SOB, productive cough and wheezing - Labs unrevealing; ABG without any evidence of CO2 retention - CXR 01/17: Stable COPD and emphysematous changes - s/p Soumedrol loading dose - c/w Levaquin (Day #4), Spiriva, Advair and Duoneb PRN - c/w Prednisone; will taper upon discharge 2. Positive blood cultures - likely 2/2 contaminant, less likely true positive - No reported fevers or chills - Blood cultures 01/17: 1 of 2 bottles positive with Gram positive cocci in pairs / chains - Repeat blood cultures 01/19 - pending - c/w Vancomycin for now 3. HTN - BP well controlled - c/w Propranolol with holding parameters 4. BPH - c/w Finasteride and Tamsulosin 5. Depression - c/w Bupropion 6. Smoking dependence - c/w Nicotine patch 7. GI prophylaxis - c/w protonix 8. DVT prophylaxis - c/w Heparin SQ Disposition: - Awaiting blood culture results to finalize and repeat blood cultures to reflect negative growth - Likely can discharge home VS,Fishbone, I+O VS, Fishbone, I+O Laboratory Tests 01/20/17 04:48 Red Blood Count 3.90 L, Mean Corpuscular Volume 101.2 H, Mean Corpuscular Hemoglobin 34.2 H, Mean Corpuscular Hemoglobin Concent 33.8, Red Cell Distribution Width 12.8, Calcium Level 8.1 L, Aspartate Amino Transf (AST/SGOT) 8 L, Alanine Aminotransferase (ALT/SGPT) 22, Alkaline Phosphatase 65, Total Bilirubin 0.3, Total Protein 5.5 L, Albumin 2.8 L Vital Signs Date Time Temp Pulse Resp B/P (MAP) Pulse Ox O2 Delivery O2 Flow Rate FiO2 01/20/17 08:00 99.1 99 18 125/79 (94) 94 Room Air 01/17/17 12:17 3.0 01/17/17 00:20 40 I&O- Last 24 Hours up to 6 AM 01/20/17 06:00 Intake Total 1695 ml Output Total 1100 ml Balance 595 ml NISHI FAIRCHILD MD Jan 20, 2017 09:22
[2017-01-20] MEDS: PANTOPRAZOLE 40MG TAB (PROTONIX) PO SCH (09:55)
[2017-01-20] MEDS: TAMSULOSIN 0.4 MG CAP PO SCH (09:55)
[2017-01-20] MEDS: buPROPion (WELLBUTRIN SR) 100 MG SR TAB PO SCH (09:55)
[2017-01-20] MEDS: predniSONE 20 MG TAB PO SCH (09:56)
[2017-01-20] MEDS: CYANOCOBALAMIN 500 MCG TAB PO SCH (09:56)
[2017-01-20 09:57] VITALS: BP 125/79
[2017-01-20] MEDS: PROPRANOLOL 20 MG TAB PO SCH (09:57)
[2017-01-20] MEDS: FINASTERIDE 5 MG TAB PO SCH (09:57)
[2017-01-20] MEDS: ASPIRIN 81 MG ENTERIC TAB PO SCH (09:58)
[2017-01-20] MEDS: THIAMINE 100 MG TAB PO SCH (09:58)
[2017-01-20] MEDS: VANCOMYCIN HCL 750 MG, VIAL MATE ADAPTER 1 EACH in D5W 250 ML IV SCH (10:17)
[2017-01-20] MEDS ORDERED: LEVA1TAB2 PO (13:57)
[2017-01-20] MEDS ORDERED: PRED20TA PO (13:57)
--- NOTE | 2017-02-12 22:35 | DSES ---
DATE OF ADMISSION: 01/17/2017 DATE OF DISCHARGE: 01/20/2017 PRIMARY CARE PHYSICIAN: Dr. Alcaraz. CONSULTANTS: None. PROCEDURES: None. PRIMARY DIAGNOSIS: Dyspnea secondary to acute chronic obstructive pulmonary disease (COPD) exacerbation. SECONDARY DIAGNOSES: 1. Positive blood culture. 2. Hypertension. 3. Benign prostatic hypertrophy (BPH). 4. Depression. 5. Smoking dependence. DISCHARGE MEDICATIONS: - Levaquin 500 mg by mouth daily for three days - prednisone 40 mg by mouth for three days, and then prednisone 20 mg by mouth for three days, and then his baseline prednisone - albuterol sulfate two puff inhaler every four hours as needed for shortness of breath - albuterol ipratropium one solution inhaler four times a day as needed for shortness of breath - prednisone 10 mg by mouth daily - propranolol 40 mg by mouth daily - Flomax 0.4 mg by mouth daily - vitamin B1 100 mg by mouth daily - Spiriva HandiHaler one inhalation daily HOSPITAL COURSE: Mr. Almaguer is a 61 male with multiple past medical history who presented to the emergency room (ER) due to shortness of breath, cough, dyspnea on exertion for one day. The patient was started on intravenous (IV) Solu-Medrol, as well as DuoNeb breathing treatment and oxygen. Cardiac marker was unremarkable. Arterial blood gas (ABG) was normal. The patient was started on antibiotics. ABG shows no evidence of CO2 retention. Chest x-ray which was done on 01/17 indicated a stable COPD and emphysematous changes. The patient was continued with the Levaquin. Also the patient continued with the home medications for hypertension. Also we provided the patient with nicotine patch since the patient had smoking dependence. The patient at the time of discharge came back to the baseline and we started the patient on prednisone orally at the 40 mg for three days, and the 20 mg for three days, and then we asked the patient to followup with the home prednisone which is 10 mg daily. Also, we discharged the patient with three more days of Levaquin, 500 mg by mouth for three more days for a total of seven days. The patient was instructed to followup with pulmonology and the primary care physician. At the time of discharge the patient was medically optimized. DISCHARGE PLACEMENT: Home. DISCHARGE INSTRUCTIONS: 1. Please followup with your primary care and pulmonology. 2. Activity as tolerated by the patient.
== END 2017-01-20 15:55 | disposition home or self-care (01) | DRG 140 ==
LOC: EDBD 00:06 → M ED 00:49 → M ED INP 06:06 → OBSVTOIN 06:06 → M PCU 08:00 → OBSVTOIN 01-19 11:16 → INTOOBSV 01-19 11:16
PROVIDERS: ADMIT Internal Medicine; ATTEND Internal Medicine
DX: J44.1 Chronic obstructive pulmonary disease with (acute) exacerbation (principal); J96.01 Acute respiratory failure with hypoxia; Z79.52 Long term (current) use of systemic steroids; Z79.82 Long term (current) use of aspirin; Z79.899 Other long term (current) drug therapy; F17.200 Nicotine dependence, unspecified, uncomplicated; I10 Essential (primary) hypertension; N40.0 Benign prostatic hyperplasia without lower urinary tract symptoms; F32.9 Major depressive disorder, single episode, unspecified

== ENCOUNTER 2017-02-06 04:04 | Emergency (ER) | payer BC ==
[~2017-02-06] VITALS: Ht 162.6 cm; Wt 50.9 kg
[~2017-02-06 04:04] MED LIST changes: +ASPI81TA21 PO; +BUPR100T3 PO; +LEVA1TAB2 PO; +PRED10TA2 PO; +PROP40TA PO; +SPIR1CAP INH; +VITA100072 PO
[2017-02-06] MEDS ORDERED: dexameTHASONE 20 MG/5 ML VIAL (J1100) IV ONE ×2 (04:30)
[2017-02-06] MEDS ORDERED: IPRATROPIUM 0.5MG/ALBUTEROL 2.5MG INH SOL UD 3ML (DUONEB)(J7620) NEB SCH (04:30)
[2017-02-06] MEDS ORDERED: IPRATROPIUM 0.5MG/ALBUTEROL 2.5MG INH SOL UD 3ML (DUONEB)(J7620) As Ordered ONE (04:31)
[2017-02-06 04:32] LABS: BASO % 0.6 % (0.0-1.0); EOS # 0.3 K/mm3 (0.0-0.50); EOS % 3.4 % (0.0-3.0); LARGE UNSTAINED CELL # 0.1 K/mm3 (0.0-0.4); LYMPH % 20.6 % (24.0-44.0); MEAN CORPUSCULAR HEMOGLOBIN 33.7 pg (27.0-33.0); MEAN CORPUSCULAR HGB CONC 33.3 g/dl (32.0-36.5); MEAN CORPUSCULAR VOLUME 101.2 fl (80.0-96.0); MONO # 0.8 K/mm3 (0.0-0.8); MONO % 8.4 % (0.0-5.0); NEUTROPHILS # 6.1 K/mm3 (1.8-7.7); NEUTROPHILS % 66.1 % (36.0-66.0); PLATELET COUNT, AUTOMATED 274 k/mm3 (150-450); WHITE BLOOD COUNT 9.3 K/mm3 (4.0-10.0)
[2017-02-06 04:34] LABS: VENOUS BASE EXCESS 2.2 (-2.0-2.0); VENOUS O2 SATURATION 95.4 % (60.0-80.0); VENOUS PARTIAL PRESSURE O2 79.8 mmHg (30.0-50.0); VENOUS STANDARD HCO3 26.4 MEQ/L; VENOUS TOTAL CO2 29.5 MEQ/L (24.0-28.0)
[2017-02-06 04:51] LABS: ANION GAP 5 MEQ/L (8-16); BLOOD UREA NITROGEN 13 MG/DL (7-18); CALCIUM LEVEL 9.2 MG/DL (8.8-10.2); CARBON DIOXIDE LEVEL 31 MEQ/L (21-32); CHLORIDE LEVEL 103 MEQ/L (98-107); CREATININE FOR GFR 1.07 MG/DL (0.70-1.30); GLOMERULAR FILTRATION RATE > 60.0 (>49); GLUCOSE, FASTING 99 MG/DL (80-110); POTASSIUM SERUM 4.1 MEQ/L (3.5-5.1); SODIUM LEVEL 139 MEQ/L (136-145)
[2017-02-06] MEDS ORDERED: PRED20TA PO (05:30)
[2017-02-06 05:36] VITALS: BP 153/91
--- NOTE | 2017-02-06 07:58 | REP ---
Chest one-view HISTORY: Dyspnea Comparison: 01/17/2017 The lungs are hyperinflated. The lungs are clear. The heart is normal in size. The pulmonary vasculature is normal in appearance. Impression: No acute disease. Signed by Pranav Desir MD 02/06/2017 07:48 A
== END 2017-02-06 05:44 | disposition home or self-care (01) ==
LOC: M ED 04:04 → EDBD 04:04 → M ED 05:44
DX: J44.1 Chronic obstructive pulmonary disease with (acute) exacerbation (principal); F17.210 Nicotine dependence, cigarettes, uncomplicated; I10 Essential (primary) hypertension; N40.0 Benign prostatic hyperplasia without lower urinary tract symptoms
CPT/HCPCS: 71010; 80048; 82803; 85025; 96374; 99284; J1100

== ENCOUNTER → 2017-09-28 | Outpatient (REF) | payer BC ==
[2017-09-28 20:42] LABS: HEMATOCRIT 40.6 % (42.0-52.0); HEMOGLOBIN 13.5 g/dl (14.0-18.0); MEAN CORPUSCULAR HEMOGLOBIN 32.8 pg (27.0-33.0); MEAN CORPUSCULAR HGB CONC 33.3 g/dl (32.0-36.5); MEAN CORPUSCULAR VOLUME 98.8 fl (80.0-96.0); PLATELET COUNT, AUTOMATED 268 10^3/uL (150-450); RED BLOOD COUNT 4.11 10^6/uL (4.30-6.10); RED CELL DISTRIBUTION WIDTH 12.6 % (11.5-14.5)
[2017-09-28 20:55] LABS: ESTIMATED AVERAGE GLUCOSE 100 MG/DL (60-110); HEMOGLOBIN A1c 5.1 %
[2017-09-28 21:00] LABS: ALBUMIN 3.5 GM/DL (3.2-5.2); ALBUMIN/GLOBULIN RATIO 1.35 (1.00-1.93); ALKALINE PHOSPHATASE 86 U/L (45-117); ALT/SGPT 21 U/L (12-78); ANION GAP 6 MEQ/L (8-16); AST/SGOT 10 U/L (7-37); BILIRUBIN,TOTAL 0.3 MG/DL (0.2-1.0); BLOOD UREA NITROGEN 19 MG/DL (7-18); CALCIUM LEVEL 8.3 MG/DL (8.8-10.2); CARBON DIOXIDE LEVEL 29 MEQ/L (21-32); CHLORIDE LEVEL 107 MEQ/L (98-107); CHOLESTEROL LEVEL 159 MG/DL (<200); CHOLESTEROL RISK RATIO 2.271 (<5); CREATININE FOR GFR 1.15 MG/DL (0.70-1.30); GLOMERULAR FILTRATION RATE > 60.0 (>49); GLUCOSE, FASTING 79 MG/DL (70-100); HDL CHOLESTEROL 70 MG/DL (>40); LDL CHOLESTEROL 75.4 MG/DL (<100); NON-HDL-C 89 MG/DL; POTASSIUM SERUM 4.1 MEQ/L (3.5-5.1); PSA SCREENING 0.22 NG/ML (< 4.0); SODIUM LEVEL 142 MEQ/L (136-145); THYROID STIMULATING HORMONE 0.927 uIU/ML (0.358-3.740); TOTAL PROTEIN 6.1 GM/DL (6.4-8.2); TRIGLYCERIDES LEVEL 68 MG/DL (<150)
[2017-09-28 21:05] LABS: MALB URINE SIEMENS < 5.0 MG/L; MAU/CREAT RATIO 3.9 MCG/MG (0.0-30.0)
== END ==
LOC: M SFHCLERA 15:35
DX: R39.9 Unspecified symptoms and signs involving the genitourinary system (principal); I10 Essential (primary) hypertension
CPT/HCPCS: 84443

== ENCOUNTER 2018-01-05 05:27 | Emergency (ER) | payer BC ==
[2018-01-05] MEDS: ALBUTEROL SULFATE 2.5 MG/0.5 ML INH NEB SOLN NEB ×3 (05:45)
[2018-01-05] MEDS: dexameTHASONE 20 MG/5 ML VIAL (J1100) IV ×3 (05:56)
== END 2018-01-05 06:59 | disposition home or self-care (01) ==
LOC: M ED 05:27
DX: J45.901 Unspecified asthma with (acute) exacerbation (principal); J44.9 Chronic obstructive pulmonary disease, unspecified; N40.0 Benign prostatic hyperplasia without lower urinary tract symptoms; Z72.0 Tobacco use; Z79.899 Other long term (current) drug therapy
CPT/HCPCS: J1100

== ENCOUNTER → 2018-11-01 | Outpatient (REF) | payer BC ==
[~2018-11-01] MED LIST changes: +FLOM0.4C39 PO; -FLOM5CAP PO; +FOLI1TAB11 PO; -FOLI1TAB4 PO; +IPRA0.00 INH; -IPRASOL4 INH; -PROP40TA PO; +PROP40TA62 PO; +VITA100018 PO; -VITA100072 PO; -VITA100T2 PO; +VITA100T8 PO
[2018-11-01 20:36] LABS: ALBUMIN 3.5 GM/DL (3.2-5.2); ALT/SGPT 15 U/L (12-78); BILIRUBIN,TOTAL 0.3 MG/DL (0.2-1.0); BLOOD UREA NITROGEN 17 MG/DL (7-18); CALCIUM LEVEL 8.4 MG/DL (8.8-10.2); CARBON DIOXIDE LEVEL 29 MEQ/L (21-32); CHLORIDE LEVEL 103 MEQ/L (98-107); CHOLESTEROL LEVEL 174 MG/DL (<200); CHOLESTEROL RISK RATIO 3.107 (<5); CREATININE FOR GFR 1.06 MG/DL (0.70-1.30); FERRITIN 70 NG/ML (26-388); GLOMERULAR FILTRATION RATE > 60.0 (>49); GLUCOSE, FASTING 86 MG/DL (70-100); HDL CHOLESTEROL 56 MG/DL (>40); LDL CHOLESTEROL 95 MG/DL (<100); NON-HDL-C 118 MG/DL; POTASSIUM SERUM 4.5 MEQ/L (3.5-5.1); SODIUM LEVEL 139 MEQ/L (136-145); TOTAL PROTEIN 6.1 GM/DL (6.4-8.2); TRIGLYCERIDES LEVEL 114 MG/DL (<150)
[2018-11-01 20:45] LABS: FOLATE 12.4 NG/ML; VITAMIN B12 LEVEL 511 PG/ML
[2018-11-01 21:05] LABS: BASO # 0.1 10^3/uL (0.0-0.2); BASO % 0.7 % (0.0-1.0); EOS # 0.3 10^3/uL (0.0-0.50); EOS % 4.3 % (0.0-3.0); HEMATOCRIT 42.4 % (42.0-52.0); HEMOGLOBIN 13.7 g/dl (13.5-17.5); LYMPH # 2.1 10^3/uL (1.5-4.5); LYMPH % 29.8 % (24.0-44.0); MEAN CORPUSCULAR HEMOGLOBIN 32.5 pg (27.0-33.0); MEAN CORPUSCULAR HGB CONC 32.3 g/dl (32.0-36.5); MEAN CORPUSCULAR VOLUME 100.7 fl (80.0-96.0); MONO # 1.1 10^3/uL (0.0-0.8); MONO % 15.3 % (0.0-5.0); NEUTROPHILS # 3.4 10^3/uL (1.8-7.7); NEUTROPHILS % 49.6 % (36.0-66.0); PLATELET COUNT, AUTOMATED 276 10^3/uL (150-450); RED BLOOD COUNT 4.21 10^6/uL (4.30-6.10); WHITE BLOOD COUNT 6.9 10^3/uL (4.0-10.0)
[2018-11-01 21:12] LABS: HEMOGLOBIN A1c 5.4 %
== END ==
LOC: M SFHCLERA 16:06
PROVIDERS: ATTEND Family Medicine
DX: D64.9 Anemia, unspecified (principal); I10 Essential (primary) hypertension

== ENCOUNTER → 2018-11-03 | Outpatient (CLI) | payer BC ==
--- NOTE | 2018-11-03 09:16 | REP ---
Low-dose lung screening chest CT: The study is performed without IV contrast. The images are presented at lung windowing comparison is the CT angio of the chest dated 12/10/2016. There is a small parenchymal scar in the apex of the right upper lobe, unchanged. There are no nodules or masses. There are no infiltrates or effusions. Impression: Category 1 low-dose lung screening CT. The incidence of malignancy is less than 1%. Depending on risk factors consider annual follow-up low-dose lung screening CT. Electronically Signed by Jonah Rutledge MD 11/03/2018 09:07 A
== END ==
LOC: M RAD 07:34
PROVIDERS: ATTEND Internal Medicine Pulmonary Disease
DX: F17.210 Nicotine dependence, cigarettes, uncomplicated (principal)

== ENCOUNTER → 2019-04-11 | Outpatient (REF) | payer MEDICARE ==
[~2019-04-11] MED LIST changes: +PRED5TA PO
[2019-04-11 20:31] LABS: FOLATE 17.7 NG/ML
[2019-04-17 00:07] LABS: Methylmalonic Acid 1016 nmol/L (0-378)
== END ==
LOC: M SFHCLERA 15:24
PROVIDERS: ATTEND Family Medicine
DX: E53.8 Deficiency of other specified B group vitamins (principal)

== ENCOUNTER 2019-04-16 06:11 | Emergency (ER) | payer MEDICARE ==
[~2019-04-16] VITALS: Ht 162.6 cm; Wt 54.5 kg
[~2019-04-16 06:11] MED LIST changes: -PRED5TA PO
[2019-04-16] MEDS ORDERED: PRED5TA PO (06:21)
[2019-04-16] MEDS: IPRATROPIUM 0.5MG/ALBUTEROL 2.5MG INH SOL UD 3ML (DUONEB)(J7620) NEB PRN ×2 (07:28→08:08)
--- NOTE | 2019-04-16 08:05 | REP ---
PA and lateral chest: Comparisons are 01/05/2018 and 04/11/2016. Lung pascal are chronically hyperinflated, unchanged from the prior studies. There are no infiltrates, pleural effusions, nodules or masses. Cardiac size is normal. The vikki, mediastinum, skeletal structures are unremarkable. Impression: There are no acute cardiopulmonary findings. There is chronic hyperinflation. Electronically Signed by Jonah Rutledge MD 04/16/2019 07:57 A
[2019-04-16] MEDS ORDERED: methylPREDNISolone INJ 125 MG/2 ML VIAL (J2930) IM ONE (08:15)
[2019-04-16] MEDS ORDERED: PRED20TA PO (08:55)
[2019-04-16 08:59] VITALS: BP 161/94
== END 2019-04-16 09:10 | disposition home or self-care (01) ==
LOC: M ED 06:11
DX: J44.1 Chronic obstructive pulmonary disease with (acute) exacerbation (principal); I10 Essential (primary) hypertension; F17.210 Nicotine dependence, cigarettes, uncomplicated
CPT/HCPCS: 71046; 96372; 99284; J2930

== ENCOUNTER → 2020-09-26 | Outpatient (CLI) | payer MEDICARE ==
[~2020-09-26] MED LIST changes: -DOXY100T16 PO; +DOXY100T27 PO; +PRED5TA PO
--- NOTE | 2020-09-26 08:12 | REP ---
INDICATION: LUNG SCREENING COMPARISON: None. TECHNIQUE: Axial noncontrast images from the thoracic inlet to the upper abdomen using low-dose lung screening technique (LDCT). FINDINGS: Stable COPD/emphysematous changes and minimal scattered stable chronic scarring again noted. No acute consolidation, suspicious nodule, or mass lesion. No effusion. No pneumothorax. Tracheobronchial tree is patent. Mediastinum again demonstrates atherosclerotic changes to the thoracic aorta and coronary arteries without aortic aneurysm or cardiomegaly. IMPRESSION: Lung-RADS category 1. No suspicious abnormality appreciated. Chronic COPD/emphysematous changes. Management recommendations include annual low-dose CT evaluation. <Electronically signed by Gautam Rader > 09/26/20 [id number]
== END ==
LOC: M RAD 06:34
PROVIDERS: ATTEND Internal Medicine Pulmonary Disease
DX: F17.218 Nicotine dependence, cigarettes, with other nicotine-induced disorders (principal)

== ENCOUNTER → 2020-12-17 | Outpatient (CLI) | payer MEDICARE ==
[2020-12-17 11:36] LABS: HCG, SERUM QUALITATIVE NEGATIVE
[2020-12-17 11:41] LABS: ALBUMIN 3.6 GM/DL (3.2-5.2); ALT/SGPT 38 U/L (12-78); BILIRUBIN,TOTAL 0.6 MG/DL (0.2-1.0); BLOOD UREA NITROGEN 6 MG/DL (7-18); CALCIUM LEVEL 9.3 MG/DL (8.8-10.2); CARBON DIOXIDE LEVEL 32 MEQ/L (21-32); CHLORIDE LEVEL 98 MEQ/L (98-107); CREATININE FOR GFR 0.88 MG/DL (0.70-1.30); ESTRADIOL 41.1 PG/ML (<39.8); FOLLICLE STIMULATING HORMONE 9.5 mIU/mL (1.4-18.1); FREE T4 1.11 NG/DL (0.76-1.46); GLOMERULAR FILTRATION RATE > 60.0 (>49); GLUCOSE, FASTING 100 MG/DL (70-100); LUTEINIZING HORMONE 9.7 mIU/mL (1.5-9.3); POTASSIUM SERUM 4.4 MEQ/L (3.5-5.1); SODIUM LEVEL 136 MEQ/L (136-145); THYROID STIMULATING HORMONE 0.741 uIU/ML (0.358-3.740); TOTAL PROTEIN 6.6 GM/DL (6.4-8.2)
[2020-12-18 20:08] LABS: TESTOSTERONE FREE (DIRECT) 14.7 pg/mL (6.6-18.1)
== END ==
LOC: M WUC 08:13
PROVIDERS: ATTEND Family Medicine
DX: N64.4 Mastodynia (principal)

== ENCOUNTER 2020-12-28 05:08 | Inpatient (IN) | payer MEDICARE ==
[~2020-12-28] VITALS: Ht 152.4 cm; Wt 49.6 kg
[2020-12-28] MEDS ORDERED: TAMS1CAP17 PO (05:29)
[2020-12-28 05:52] LABS: VENOUS BASE EXCESS 0.5 (-2.0-2.0); VENOUS HCO3 27.2 MEQ/L (23.0-27.0); VENOUS O2 SATURATION 42.6 % (60.0-80.0); VENOUS PARTIAL PRESSURE CO2 51.3 mmHg (38.0-50.0); VENOUS PH 7.343 UNITS (7.330-7.430); VENOUS STANDARD HCO3 23.5 MEQ/L; VENOUS TOTAL CO2 28.8 MEQ/L (24.0-28.0)
[2020-12-28 05:56] LABS: BASO # 0.1 10^3/uL (0.0-0.2); BASO % 0.7 % (0.0-1.0); EOS # 0.3 10^3/uL (0.0-0.5); EOS % 3.5 % (0.0-3.0); HEMATOCRIT 44.9 % (42.0-52.0); HEMOGLOBIN 15.2 g/dl (13.5-17.5); LYMPH # 1.3 10^3/uL (1.5-5.0); LYMPH % 16.7 % (24.0-44.0); MEAN CORPUSCULAR HEMOGLOBIN 33.9 pg (27.0-33.0); MEAN CORPUSCULAR HGB CONC 33.9 g/dl (32.0-36.5); MONO # 0.8 10^3/uL (0.0-0.8); MONO % 11.2 % (2.0-8.0); NEUTROPHILS # 5.1 10^3/uL (1.5-8.5); NEUTROPHILS % 67.5 % (36.0-66.0); PLATELET COUNT, AUTOMATED 207 10^3/uL (150-450); RED BLOOD COUNT 4.49 10^6/uL (4.30-6.10); WHITE BLOOD COUNT 7.5 10^3/uL (4.0-10.0)
[2020-12-28 06:26] LABS: ALBUMIN 3.6 GM/DL (3.2-5.2); ALT/SGPT 36 U/L (12-78); BILIRUBIN,DIRECT 0.2 MG/DL (0.0-0.2); BILIRUBIN,TOTAL 0.6 MG/DL (0.2-1.0); BLOOD UREA NITROGEN 6 MG/DL (7-18); CALCIUM LEVEL 8.7 MG/DL (8.8-10.2); CARBON DIOXIDE LEVEL 31 MEQ/L (21-32); CHLORIDE LEVEL 100 MEQ/L (98-107); CK-MB VALUE MASS < 1.0 NG/ML (<3.6); CPK CREATINE PHOSPHOKINASE 31 U/L (39-308); CREATININE FOR GFR 0.78 MG/DL (0.70-1.30); GLOMERULAR FILTRATION RATE > 60.0 (>49); GLUCOSE, FASTING 76 MG/DL (70-100); MB/CK RELATIVE INDEX 3.23 (< OR =4); POTASSIUM SERUM 4.7 MEQ/L (3.5-5.1); SODIUM LEVEL 135 MEQ/L (136-145); TROPONIN I < 0.02 NG/ML (< 0.10)
--- NOTE | 2020-12-28 06:32 | ECGEPIP ---
[facility] - ED Test Date: 2020-12-28 Pat Name: DANG QUINONES Department: Room: - Gender: Male Credentialing Coordinator: swati : 1955 Requested By: EDNA Craig Order Number: [id number] Reading MD: Konstantin Robertson Measurements Intervals [place] Rate: 98 P: 83 NV: 142 QRS: 64 QRSD: 72 T: 74 QT: 358 QTc: 457 Interpretive Statements Normal sinus rhythm Nonspecific ST T wave changes possible LAE cw 01/17/[address] T wave changes Electronically Signed on 12-28-2020 6:32:22 EDT by Konstantin Robertson
--- NOTE | 2020-12-28 06:44 | REPVR ---
PROCEDURE INFORMATION: Exam: XR Chest Exam date and time: 12/28/2020 5:52 AM Age: 65 years old Clinical indication: Other: Dyspnea/cough TECHNIQUE: Imaging protocol: XR of the chest. Views: 1 view. COMPARISON: 1. CR Chest, 1 view 01/05/2018 5:44 AM 2. SR LOW DOSE LUNG SCREENING CT 09/26/2020 7:12:35 AM FINDINGS: Lungs: Chronic hyperinflation, unchanged. No consolidation. Pleural spaces: No significant pleural effusions. No pneumothorax. Heart/Mediastinum: Cardiac size is normal and mediastinal contour stable. Bones/joints: Bones are stable. Degenerative changes. IMPRESSION: Stable chest. COPD. No acute abnormalities are identified. Electronically signed by: Gautam Reyes On 12/28/2020 06:44:40 AM
[2020-12-28 06:56] LABS: NT-PRO BNP 284 PG/ML (<125)
[2020-12-28] MEDS ORDERED: IPRATROPIUM 0.5MG/ALBUTEROL 2.5MG INH SOL UD 3ML (DUONEB) NEB ONE ×2 (07:10→08:25)
[2020-12-28] MEDS ORDERED: methylPREDNISolone 125MG 2ML VIAL IV ONE (07:10)
[2020-12-28] MEDS ORDERED: ALBUTEROL SULFATE 2.5 MG/0.5 ML INH NEB SOLN INH ONE (07:10)
[2020-12-28] MEDS ORDERED: ISOVUE-370 76% 100ML VIAL As Ordered ONE (07:18)
--- NOTE | 2020-12-28 08:55 | REP ---
INDICATION: sob COMPARISON: None. TECHNIQUE: Axial contrast enhanced images from the thoracic inlet to the upper abdomen using pulmonary embolus technique with multiplanar re-formations. 75 ml Isovue 370 intravenous contrast material administered without complication. This CT examination was performed using the following dose reduction techniques: Automated exposure control, adjustment of mA and/or kv according to the patient's size, and use of iterative reconstruction technique. FINDINGS: Satisfactory enhancement of the pulmonary vasculature is achieved and no filling defects are identified to suggest pulmonary embolus. Further evaluation of the mediastinum demonstrates relatively age-appropriate thoracic aorta, heart and pericardium with mild atherosclerotic changes noted. The bilateral lung pascal are well aerated and without consolidation pleural effusion or pneumothorax. Tracheobronchial tree is patent. No nodule or mass lesion is identified. No adenopathy noted. Incidental note is made small bilateral fat containing Bochdalek's hernias (left greater than right). Surrounding musculoskeletal structures intact IMPRESSION: No evidence for pulmonary embolus. No acute mediastinal or pleural parenchymal process. <Electronically signed by Gautam Rader > 12/28/20 [id number]
[2020-12-28 09:33] VITALS: O2SAT 92
[2020-12-28] MEDS ORDERED: IPRATROPIUM 0.5MG/ALBUTEROL 2.5MG INH SOL UD 3ML (DUONEB) NEB PRN (10:35)
--- NOTE | 2020-12-28 11:21 | HPEPDOC ---
General Date of Admission Dec 28, 2020 at 10:32 Date of Service: Dec 28, 2020 Chief Complaint The patient is a 65-year-old male admitted with a reason for visit of Copd With Acute Exacerbation, Tobacco Abuse. Source: Patient History of Present Illness Mr. Stinson is a 65-year-old male with COPD and nicotine dependence who presents with worsening shortness of breath for the past week. Normally likes to be very active, but he noticed that he is getting more short of breath with activity. Denies any sick contacts or recent hospitalizations. Denies any recent antibiotics. He is a current smoker, and even with insurance, he has not been able to afford his long-acting inhalers. When he came into the ED, his vital signs are stable. Imaging did not suggest pneumonia or PE. Patient does have wheezing and cannot complete full sentences despite steroids and DuoNeb's. Patient will be admitted for acute COPD exacerbation Home Medications Scheduled Propranolol HCl (Propranolol HCl) 40 Mg Tab, 40 MG PO BID, (Reported) Tamsulosin Hcl (Tamsulosin HCl) 0.4 Mg Capsule, 0.4 MG PO DAILY, (Reported) Scheduled PRN Ipratropium/Albuterol Sulfate (Iprat-Albut 0.5-3(2.5) mg/3 ml) 1 Julio Cesar Julio Cesar, 1 JULIO CESAR INH QID PRN for SHORTNESS OF BREATH, (Reported) Allergies Coded Allergies: No Known Allergies (Verified , 01/20/11) Past Medical History Medical History 1. COPD 2. Tobacco use 3. BPH 4. Glaucoma 5. Vitamin B-12 deficiency Surgical History 1. Tonsillectomy and adenectomy 2. Hernia repair 3. Right basal joint surgery Family History Father: , per patient no known medical history Mother: Alive and 94 years old, per patient no known medical history although she's become more forgetful Social History * Smoker: current smoker Alcohol: occationally (5 beers a day) Drugs: denies A-FIB/CHADSVASC A-FIB History Current/History of A-Fib/PAF?: No Review of Systems Constitutional: Denies: Chills, Fever Eyes: Denies: Vision change ENT: Denies: Sore Throat Skin: Denies: Rash Pulmonary: Reports: Dyspnea, Cough (clear sputum) Cardiovascular: Denies: Chest Pain Gastrointestinal: Denies: Abdominal Pain, Diarrhea Genitourinary: Denies: Dysuria Hematologic: Denies: Bruising Neurological: Denies: Numbness Psych: Denies: Anxiety, Depression Physical Examination General Exam: Positive: Alert, Cooperative Eye Exam: Positive: EOMI; Negative: Sclera icteric ENT Exam: Positive: Atraumatic Neck Exam: Positive: Supple Chest Exam: Positive: Wheezing (significant) Heart Exam: Positive: Rate Normal, Regular Rhythm Abdomen Exam: Positive: Normal bowel sounds, Soft; Negative: Tenderness Extremity Exam: Negative: Edema Neuro Exam: Positive: Cranial Nerves 3-12 NL Psych Exam: Positive: Mental status NL, Mood NL Vital Signs Vital Signs Date Time Temp Pulse Resp B/P (MAP) Pulse Ox O2 Delivery O2 Flow Rate FiO2 12/28/20 09:34 20 12/28/20 09:33 92 Room Air 12/28/20 09:20 127/77 (94) 12/28/20 09:15 97 12/28/20 05:18 98.1 Laboratory Data Labs 24H Laboratory Tests 2 12/28/20 05:37: Immature Granulocyte % (Auto) 0.4, Neutrophils (%) (Auto) 67.5H, Lymphocytes (%) (Auto) 16.7L, Monocytes (%) (Auto) 11.2H, Eosinophils (%) (Auto) 3.5H, Basophils (%) (Auto) 0.7, Neutrophils # (Auto) 5.1, Lymphocytes # (Auto) 1.3L, Monocytes # (Auto) 0.8, Eosinophils # (Auto) 0.3, Basophils # (Auto) 0.1, Nucleated Red Blood Cells % (auto) 0.0, Blood Gas Bicarbonate Standard 23.5, Venous Blood pH 7.343, Venous Blood Partial Pressure CO2 51.3H, Venous Blood Partial Pressure O2 27.0L, Venous Blood Total Carbon Dioxide 28.8H, Venous Blood HCO3 27.2H, Venous Blood Oxygen Saturation 42.6L, Venous Blood Base Excess 0.5, Anion Gap 4L, Glomerular Filtration Rate > 60.0, Calcium Level 8.7L, Total Bilirubin 0.6, Direct Bilirubin 0.2, Aspartate Amino Transf (AST/SGOT) 19, Alanine Aminotransferase (ALT/SGPT) 36, Alkaline Phosphatase 93, Total Creatine Kinase 31L, Creatine Kinase MB < 1.0, Creatine Kinase MB Relative Index 3.23, Troponin I < 0.02, PG-Lau-Y-Type Natriuretic Peptide 284H, Total Protein 7.0, Albumin 3.6, Albumin/Globulin Ratio 1.1 12/28/20 07:38: POC pH (Misc Panel) 7.405, POC Base Excess (Misc Panel) 2.0, POC Saturated Percent O2 (Misc) 97, POC pO2 (Misc Panel) 96.0, POC pCO2 (Misc Panel) 42.9, POC HCO3 (Misc Panel) 26.9H, POC Total CO2 (Misc Panel) 28.0H CBC/BMP Laboratory Tests 12/28/20 05:37 Microbiology Microbiology 12/28/20 Respiratory Virus Panel (PCR) ([facility]) - Final, Complete Assessment/Plan Mr. Stinson is a 65-year-old male with COPD and nicotine dependence who presents with worsening shortness of breath for the past week. His lack of long-acting inhalers and his continued smoking is the most likely cause for his exacerbation. While here, we'll put on IV steroids, IV azithromycin, breathing treatments, and long-acting inhalers. Plan / VTE VTE Prophylaxis Ordered?: Yes Plan Plan 1. COPD exacerbation Has difficulty completing sentences and is wheezing IV steroids IV azithromycin Breathing treatments scheduled and as needed Advair twice a day 2. Noncompliance Still smokes Cannot afford long-acting inhalers PFS consult 3. BPH Continue tamsulosin 4. DVT prophylaxis Lovenox Disposition: Pending clinical improvement CHRISTA LEGER DO Dec 28, 2020 11:21
[2020-12-28] MEDS: IPRATROPIUM 0.5MG/ALBUTEROL 2.5MG INH SOL UD 3ML (DUONEB) NEB SCH ×3 (11:48→20:47)
[2020-12-28 12:45] VITALS: BP 121/95
[2020-12-28] MEDS: PROPRANOLOL 20 MG TAB PO SCH ×2 (13:00→20:10)
[2020-12-28] MEDS: AZITHROMYCIN INJ 500 MG, VIAL MATE ADAPTER 1 EACH in NS 250 ML IV SCH (13:54)
[2020-12-28] MEDS: TAMSULOSIN 0.4 MG CAP PO SCH (13:55)
[2020-12-28] MEDS: methylPREDNISolone 125MG 2ML VIAL IV SCH (13:55)
[2020-12-28 14:00] VITALS: BP 100/68
[2020-12-28] MEDS: ADVAIR HFA 115/21MCG INHALER INH SCH ×2 (14:18→20:48)
[2020-12-28] MEDS ORDERED: NS 500 ML IV ONE (15:30)
[2020-12-28 18:00] VITALS: BP 115/76
[2020-12-28 22:00] VITALS: BP_SYST 114; BP_SYST 132; BP_DIAS 77; BP_DIAS 80
[2020-12-28] MEDS: MAALOX 30 ML SUSP *UDC PO PRN (22:46)
[2020-12-29] MEDS: IPRATROPIUM 0.5MG/ALBUTEROL 2.5MG INH SOL UD 3ML (DUONEB) NEB SCH ×6 (00:16→20:31)
[2020-12-29] MEDS: methylPREDNISolone 125MG 2ML VIAL IV SCH ×2 (00:32→12:08)
[2020-12-29 06:00] VITALS: BP 136/78
[2020-12-29 06:27] LABS: HEMATOCRIT 40.3 % (42.0-52.0); HEMOGLOBIN 13.5 g/dl (13.5-17.5); MEAN CORPUSCULAR HEMOGLOBIN 33.3 pg (27.0-33.0); MEAN CORPUSCULAR HGB CONC 33.5 g/dl (32.0-36.5); MEAN CORPUSCULAR VOLUME 99.3 fl (80.0-96.0); PLATELET COUNT, AUTOMATED 184 10^3/uL (150-450); RED BLOOD COUNT 4.06 10^6/uL (4.30-6.10); WHITE BLOOD COUNT 11.2 10^3/uL (4.0-10.0)
[2020-12-29 06:48] LABS: BLOOD UREA NITROGEN 15 MG/DL (7-18); CALCIUM LEVEL 8.3 MG/DL (8.8-10.2); CARBON DIOXIDE LEVEL 28 MEQ/L (21-32); CHLORIDE LEVEL 99 MEQ/L (98-107); CREATININE FOR GFR 0.83 MG/DL (0.70-1.30); GLOMERULAR FILTRATION RATE > 60.0 (>49); GLUCOSE, FASTING 135 MG/DL (70-100); SODIUM LEVEL 135 MEQ/L (136-145)
[2020-12-29] MEDS: ADVAIR HFA 115/21MCG INHALER INH SCH ×2 (07:48→20:31)
[2020-12-29] MEDS: PROPRANOLOL 20 MG TAB PO SCH ×2 (08:28→19:55)
[2020-12-29] MEDS: ENOXAPARIN 40MG/0.4ML SYRINGE (J1650 PER 10MG) SC SCH (08:28)
[2020-12-29] MEDS: TAMSULOSIN 0.4 MG CAP PO SCH (08:28)
[2020-12-29] MEDS ORDERED: SYMB16INH INH (10:52)
[2020-12-29] MEDS ORDERED: DULE100A INH (10:52)
[2020-12-29] MEDS ORDERED: BREO1INH PO (10:52)
[2020-12-29] MEDS: AZITHROMYCIN INJ 500 MG, VIAL MATE ADAPTER 1 EACH in NS 250 ML IV SCH (12:09)
[2020-12-29 14:00] VITALS: BP 133/79
[2020-12-29] MEDS: MAALOX 30 ML SUSP *UDC PO PRN (20:00)
[2020-12-29] MEDS ORDERED: FLUT1BLS2 IH ×2 (20:36→20:41)
--- NOTE | 2020-12-29 20:44 | IPNPDOC ---
Subjective Date Seen The patient was seen on 12/29/20. Subjective Chief Complaint/HPI Mr. Stinson is a 65-year-old male with COPD and nicotine dependence who presents with worsening shortness of breath for the past week. This morning, he still have dyspnea. He was concerned with how far he could ambulate because he has to go grocery shopping on his own. Physical therapy worked with him on ambulation. Otherwise, PFS obtained meals on wheels for patient. I worked with PFS on inhalers and found that Wixela would be $16 copay for 3 months or $8 copay for 1 month which was more affordable for him than Advair being $50 for 1 month. Objective Physical Examination General Exam: Positive: Alert, Cooperative Eye Exam: Positive: EOMI; Negative: Sclera icteric ENT Exam: Positive: Atraumatic Neck Exam: Positive: Supple Chest Exam: Positive: Diminished Heart Exam: Positive: Rate Normal, Regular Rhythm Abdomen Exam: Positive: Normal bowel sounds, Soft; Negative: Tenderness Extremity Exam: Negative: Edema Neuro Exam: Positive: Cranial Nerves 3-12 NL Psych Exam: Positive: Mental status NL, Mood NL Assessment /Plan Assessment Mr. Stinson is a 65-year-old male with COPD and nicotine dependence who presents with worsening shortness of breath for the past week. His lack of long-acting inhalers and his continued smoking is the most likely cause for his exacerbation. While here, we'll put on IV steroids, IV azithromycin, breathing treatments, and long-acting inhalers. Found that Wixela would be $16 copay for 3 months or $8 copay for 1 month which was more affordable for him than Advair being $50 for 1 month. Plan/VTE VTE Prophylaxis Ordered?: Yes Plan 1. COPD exacerbation Has difficulty completing sentences and is wheezing IV steroids IV azithromycin Breathing treatments scheduled and as needed Advair twice a day 2. Noncompliance Still smokes Cannot afford long-acting inhalers PFS consult -Sent patient Lisandra to pharmacy 3. BPH Continue tamsulosin 4. DVT prophylaxis Lovenox Disposition: Pending clinical improvement. Possible discharge tomorrow. VS, I&O, 24H, Fishbone Vital Signs/I&O Vital Signs Date Time Temp Pulse Resp B/P (MAP) Pulse Ox O2 Delivery O2 Flow Rate FiO2 12/29/20 19:55 82 131/79 12/29/20 14:00 98.1 17 90 Nasal Cannula 2.0 I&O- Last 24 Hours up to 6 AM 12/29/20 06:00 Intake Total 240 ml Balance 240 ml Laboratory Data 24H LABS Laboratory Tests 2 12/29/20 05:28: Nucleated Red Blood Cells % (auto) 0.0, Anion Gap 8, Glomerular Filtration Rate > 60.0, Calcium Level 8.3L 12/29/20 13:22: Lab Scanned Report Miscellaneous Lab CBC/BMP Laboratory Tests 12/29/20 05:28 Microbiology Microbiology 12/28/20 Respiratory Virus Panel (PCR) ([facility]) - Final, Complete CHRISTA LEGER DO Dec 29, 2020 20:44
[2020-12-29 21:46] VITALS: BP 131/79
[2020-12-30] MEDS: methylPREDNISolone 125MG 2ML VIAL IV SCH ×2 (00:21→11:41)
[2020-12-30] MEDS: IPRATROPIUM 0.5MG/ALBUTEROL 2.5MG INH SOL UD 3ML (DUONEB) NEB SCH ×3 (00:27→07:32)
[2020-12-30 06:00] VITALS: BP 136/82
[2020-12-30 06:40] LABS: HEMATOCRIT 39.4 % (42.0-52.0); MEAN CORPUSCULAR HEMOGLOBIN 32.7 pg (27.0-33.0); PLATELET COUNT, AUTOMATED 184 10^3/uL (150-450); RED BLOOD COUNT 3.98 10^6/uL (4.30-6.10); WHITE BLOOD COUNT 11.2 10^3/uL (4.0-10.0)
[2020-12-30 06:57] LABS: BLOOD UREA NITROGEN 14 MG/DL (7-18); CALCIUM LEVEL 7.8 MG/DL (8.8-10.2); CARBON DIOXIDE LEVEL 27 MEQ/L (21-32); CHLORIDE LEVEL 105 MEQ/L (98-107); CREATININE FOR GFR 0.76 MG/DL (0.70-1.30); GLOMERULAR FILTRATION RATE > 60.0 (>49); GLUCOSE, FASTING 104 MG/DL (70-100); POTASSIUM SERUM 3.9 MEQ/L (3.5-5.1); SODIUM LEVEL 138 MEQ/L (136-145)
[2020-12-30] MEDS: ADVAIR HFA 115/21MCG INHALER INH SCH (07:32)
[2020-12-30] MEDS: TAMSULOSIN 0.4 MG CAP PO SCH (07:59)
[2020-12-30 08:00] VITALS: BP 136/82
[2020-12-30] MEDS: ENOXAPARIN 40MG/0.4ML SYRINGE (J1650 PER 10MG) SC SCH (08:00)
[2020-12-30] MEDS: PROPRANOLOL 20 MG TAB PO SCH (08:00)
[2020-12-30] MEDS: AZITHROMYCIN INJ 500 MG, VIAL MATE ADAPTER 1 EACH in NS 250 ML IV SCH (11:41)
[2020-12-30] MEDS ORDERED: PRED10TA2 PO (12:12)
[2020-12-30] MEDS ORDERED: IPRA0.00 INH (12:12)
--- NOTE | 2020-12-30 12:13 | DS.PDOC ---
Discharge Summary General Date of Admission Dec 28, 2020 at 10:32 Discharge Summary PROCEDURES PERFORMED DURING STAY: [None]. ADMITTING DIAGNOSES: 1. . DISCHARGE DIAGNOSES: 1. . COMPLICATIONS/CHIEF COMPLAINT: Copd With Acute Exacerbation, Tobacco Abuse. HISTORY OF PRESENT ILLNESS: . HOSPITAL COURSE: . DISCHARGE MEDICATIONS: Please see below. ALLERGIES: Please see below. PHYSICAL EXAMINATION ON DISCHARGE: VITAL SIGNS: Please see below. GENERAL: HEENT: NECK: CARDIOVASCULAR EXAMINATION: RESPIRATORY EXAMINATION: ABDOMINAL EXAMINATION: EXTREMITIES: SKIN: NEUROLOGICAL EXAMINATION: PSYCHIATRIC EXAMINATION: LABORATORY DATA: Please see below. IMAGING: PROGNOSIS: ACTIVITY: [As tolerated]. DIET: DISCHARGE PLAN: DISPOSITION: . DISCHARGE INSTRUCTIONS: 1. . ITEMS TO FOLLOWUP ON ON OUTPATIENT: 1. . DISCHARGE CONDITION: [Stable]. TIME SPENT ON DISCHARGE: Greater than minutes. Vital Signs/I&Os Vital Signs Date Time Temp Pulse Resp B/P (MAP) Pulse Ox O2 Delivery O2 Flow Rate FiO2 12/30/20 08:00 70 136/82 12/30/20 07:20 1.0 12/30/20 06:00 98.1 20 92 Room Air I&O- Last 24 Hours up to 6 AM 12/30/20 06:00 Intake Total 1210 ml Balance 1210 ml Laboratory Data Labs 24H Laboratory Tests 2 12/29/20 13:22: Lab Scanned Report Miscellaneous Lab 12/30/20 05:51: Nucleated Red Blood Cells % (auto) 0.0, Anion Gap 6L, Glomerular Filtration Rate > 60.0, Calcium Level 7.8L CBC/BMP Laboratory Tests 12/30/20 05:51 Microbiology Microbiology 12/28/20 Respiratory Virus Panel (PCR) ([facility]) - Final, Complete Discharge Medications Scheduled Fluticasone Propion/Salmeterol (Wixela 250-50 Inhub) 1 Each Blst.w.dev, 1 EACH IH BID Prednisone (Prednisone) 10 Mg Tablet, 10 MG PO TAPER Take 4 tabs daily x 3 days, then 3 tabs daily x 3 days, then 2 tabs daily x 3 days, then 1 tab daily x 3 days and stop Propranolol HCl (Propranolol HCl) 40 Mg Tab, 40 MG PO BID, (Reported) Tamsulosin Hcl (Tamsulosin HCl) 0.4 Mg Capsule, 0.4 MG PO DAILY, (Reported) Scheduled PRN Ipratropium/Albuterol Sulfate (Iprat-Albut 0.5-3(2.5) mg/3 ml) 1 Julio Cesar Julio Cesar, 1 JULIO CESAR INH QID PRN for SHORTNESS OF BREATH Allergies Coded Allergies: No Known Allergies (Verified , 01/20/11) HENRY GRIMES MD Dec 30, 2020 12:13
== END 2020-12-30 13:25 | disposition home health service (06) | DRG 192 ==
LOC: M ED 05:08 → M ED INP 10:32 → ENRESERV 11:16 → M MS5PR 12:43
PROVIDERS: ADMIT Internal Medicine; ATTEND Family Medicine
DX: J44.1 Chronic obstructive pulmonary disease with (acute) exacerbation (principal); Z66 Do not resuscitate; F17.210 Nicotine dependence, cigarettes, uncomplicated; Z91.14 Patient's other noncompliance with medication regimen; N40.0 Benign prostatic hyperplasia without lower urinary tract symptoms; H40.9 Unspecified glaucoma; E53.8 Deficiency of other specified B group vitamins; F10.10 Alcohol abuse, uncomplicated; Z79.899 Other long term (current) drug therapy; Z90.49 Acquired absence of other specified parts of digestive tract; Z20.822 Contact with and (suspected) exposure to COVID-19

== ENCOUNTER 2022-04-11 19:53 | Inpatient (IN) | payer MEDICARE ==
[~2022-04-11] VITALS: Ht 162.6 cm; Wt 42.8 kg
[~2022-04-11 19:53] MED LIST changes: +BREO1INH PO; +BUPR-70 PO; -BUPR100T3 PO; +DULE100A INH; -DULE200A IN; +FLUT1BLS2 IH; +MOME13HF7 IN; +SYMB16INH INH; +TAMS1CAP17 PO
[2022-04-11] MEDS ORDERED: IPRATROPIUM 0.5MG/ALBUTEROL 2.5MG INH SOL UD 3ML (DUONEB) As Ordered ONE (20:10)
[2022-04-11] MEDS ORDERED: dexameTHASONE 20MG/5ML VIAL (J1100 PER 1MG) As Ordered ONE (20:10)
[2022-04-11 20:20] LABS: BASO % 0.5 % (0.0-1.0); EOS # 0.1 10^3/uL (0.0-0.5); EOS % 1.6 % (0.0-3.0); HEMATOCRIT 41.6 % (42.0-52.0); HEMOGLOBIN 13.8 g/dl (13.5-17.5); LYMPH # 1.2 10^3/uL (1.5-5.0); LYMPH % 13.8 % (24.0-44.0); MEAN CORPUSCULAR HEMOGLOBIN 34.6 pg (27.0-33.0); MEAN CORPUSCULAR HGB CONC 33.2 g/dl (32.0-36.5); MEAN CORPUSCULAR VOLUME 104.3 fl (80.0-96.0); MONO % 11.4 % (2.0-8.0); NEUTROPHILS # 6.3 10^3/uL (1.5-8.5); NEUTROPHILS % 72.4 % (36.0-66.0); PLATELET COUNT, AUTOMATED 251 10^3/uL (150-450); RED BLOOD COUNT 3.99 10^6/uL (4.30-6.10); WHITE BLOOD COUNT 8.7 10^3/uL (4.0-10.0)
[2022-04-11] MEDS: IPRATROPIUM 0.5MG/ALBUTEROL 2.5MG INH SOL UD 3ML (DUONEB) NEB SCH ×2 (20:22→21:34)
[2022-04-11 20:38] LABS: INR 0.87; PROTHROMBIN TIME 12.2 SECONDS (12.7-14.5)
[2022-04-11 20:40] LABS: ABG HCO3 22.8 MEQ/L (22.0-26.0); ABG PARTIAL PRESSURE CO2 39.2 mmHg (35.0-45.0); ABG STANDARD HCO3 22.8 MEQ/L (22.0-26.0); ABG pH (ARTERIAL) 7.382 UNITS (7.350-7.450)
[2022-04-11 20:55] LABS: CK-MB VALUE MASS < 1.0 NG/ML (<3.6); CPK CREATINE PHOSPHOKINASE 20 U/L (39-308)
[2022-04-11 20:58] LABS: ALBUMIN 2.9 GM/DL (3.2-5.2); ALT/SGPT 19 U/L (12-78); BILIRUBIN,DIRECT 0.2 MG/DL (0.0-0.2); BILIRUBIN,TOTAL 0.6 MG/DL (0.2-1.0); BLOOD UREA NITROGEN 6 MG/DL (7-18); CALCIUM LEVEL 8.2 MG/DL (8.8-10.2); CARBON DIOXIDE LEVEL 28 MEQ/L (21-32); CHLORIDE LEVEL 98 MEQ/L (98-107); CREATININE FOR GFR 0.76 MG/DL (0.70-1.30); GLOMERULAR FILTRATION RATE > 60.0 (>49); GLUCOSE, FASTING 102 MG/DL (70-100); NT-PRO BNP 433 PG/ML (<125); POTASSIUM SERUM 4.5 MEQ/L (3.5-5.1); SODIUM LEVEL 132 MEQ/L (136-145); THYROXINE (T4) 8.8 UG/DL (4.5-12.0); TOTAL PROTEIN 6.5 GM/DL (6.4-8.2)
[2022-04-11] MEDS ORDERED: ISOVUE-370 76% 100ML VIAL As Ordered ONE (21:25)
[2022-04-11 22:20] LABS: MB/CK RELATIVE INDEX 3.45 (< OR =4)
[2022-04-11] MEDS ORDERED: AZITHROMYCIN INJ 500 MG, VIAL MATE ADAPTER 1 EACH in NS 250 ML IV ONE (22:45)
[2022-04-11] MEDS ORDERED: cefTRIAXone SOD 1 GM in D5W MINI-BAG PLUS 50 ML IV ONE (22:45)
[2022-04-11] MEDS ORDERED: FLUT1BLS5 PO (22:46)
[2022-04-11] MEDS ORDERED: HOME MED LIST COMPLETE! XX SCH (22:50)
[2022-04-11] MEDS ORDERED: IPRATROPIUM 0.5MG/ALBUTEROL 2.5MG INH SOL UD 3ML (DUONEB) INH PRN (23:55)
[2022-04-11] MEDS ORDERED: MOM 30ML SUSPENSION UDC PO PRN (23:55)
[2022-04-12] VITALS (8 sets, daily range): BP systolic 88–121; BP diastolic 50–78
[2022-04-12] MEDS ORDERED: LORazepam 2 MG TAB PO PRN (00:05)
[2022-04-12] MEDS ORDERED: methylPREDNISolone 125MG 2ML VIAL IV ONE (00:10)
[2022-04-12] MEDS: IPRATROPIUM 0.5MG/ALBUTEROL 2.5MG INH SOL UD 3ML (DUONEB) INH SCH ×6 (02:00→19:26)
[2022-04-12] MEDS: IPRATROPIUM 0.5MG/ALBUTEROL 2.5MG INH SOL UD 3ML (DUONEB) NEB SCH (02:01)
[2022-04-12] MEDS: DOXYCYCLINE HYCLATE 100 MG in D5W MINI-BAG PLUS 100 ML IV SCH ×2 (02:02→12:48)
[2022-04-12 06:49] LABS: HEMATOCRIT 41.7 % (42.0-52.0); HEMOGLOBIN 13.7 g/dl (13.5-17.5); MEAN CORPUSCULAR HEMOGLOBIN 33.8 pg (27.0-33.0); MEAN CORPUSCULAR HGB CONC 32.9 g/dl (32.0-36.5); PLATELET COUNT, AUTOMATED 225 10^3/uL (150-450); RED BLOOD COUNT 4.05 10^6/uL (4.30-6.10); WHITE BLOOD COUNT 3.1 10^3/uL (4.0-10.0)
[2022-04-12] MEDS: SYMBICORT 160/4.5MCG INHALER 6GM INH SCH ×2 (07:25→19:26)
[2022-04-12 07:36] LABS: ALBUMIN 2.6 GM/DL (3.2-5.2); ALT/SGPT 14 U/L (12-78); BILIRUBIN,TOTAL 0.6 MG/DL (0.2-1.0); BLOOD UREA NITROGEN 8 MG/DL (7-18); CALCIUM LEVEL 8.2 MG/DL (8.8-10.2); CARBON DIOXIDE LEVEL 26 MEQ/L (21-32); CHLORIDE LEVEL 101 MEQ/L (98-107); CREATININE FOR GFR 0.66 MG/DL (0.70-1.30); GLOMERULAR FILTRATION RATE > 60.0 (>49); GLUCOSE, FASTING 121 MG/DL (70-100); POTASSIUM SERUM 4.2 MEQ/L (3.5-5.1); SODIUM LEVEL 134 MEQ/L (136-145); TOTAL PROTEIN 5.8 GM/DL (6.4-8.2)
[2022-04-12] MEDS: NICOTINE 21MG/24HR 1 EA TRANSDERMAL TD SCH ×2 (09:00→09:23)
[2022-04-12] MEDS: PROPRANOLOL 20 MG TAB PO SCH ×2 (09:00→20:50)
[2022-04-12] MEDS: TAMSULOSIN 0.4 MG CAP PO SCH (09:22)
[2022-04-12] MEDS: ENOXAPARIN 40MG/0.4ML SYRINGE (J1650 PER 10MG) SC SCH (09:22)
[2022-04-12] MEDS: FOLIC ACID 1MG TAB PO SCH (09:22)
[2022-04-12] MEDS: DOCUSATE SODIUM 100MG CAPSULE PO SCH ×2 (09:22→20:50)
[2022-04-12] MEDS: MULTIVITAMINS/MINERALS THERAP 1 TAB PO SCH (09:23)
[2022-04-12] MEDS: predniSONE 20 MG TAB PO SCH (09:23)
[2022-04-12] MEDS: THIAMINE 100 MG TAB PO SCH ×2 (09:23→20:51)
[2022-04-12] MEDS ORDERED: SODIUM CHLORIDE 0.9% 1000ML IV ONE (20:10)
[2022-04-12] MEDS: cefTRIAXone SOD 1 GM in D5W MINI-BAG PLUS 50 ML IV SCH (20:51)
[2022-04-12] MEDS: guaiFENesin 200 MG TAB PO PRN (20:51)
[2022-04-12] MEDS ORDERED: NS 1,000 ML IV SCH (23:10)
[2022-04-13] VITALS (8 sets, daily range): BP systolic 92–125; BP diastolic 50–78
[2022-04-13] MEDS: DOXYCYCLINE HYCLATE 100 MG in D5W MINI-BAG PLUS 100 ML IV SCH (00:47)
[2022-04-13] MEDS: IPRATROPIUM 0.5MG/ALBUTEROL 2.5MG INH SOL UD 3ML (DUONEB) INH SCH ×7 (00:52→23:36)
[2022-04-13 06:48] LABS: BASO % 0.1 % (0.0-1.0); HEMATOCRIT 35.8 % (42.0-52.0); HEMOGLOBIN 11.8 g/dl (13.5-17.5); LYMPH # 1.3 10^3/uL (1.5-5.0); LYMPH % 11.7 % (24.0-44.0); MEAN CORPUSCULAR HEMOGLOBIN 33.5 pg (27.0-33.0); MEAN CORPUSCULAR VOLUME 101.7 fl (80.0-96.0); MONO # 0.9 10^3/uL (0.0-0.8); MONO % 8.6 % (2.0-8.0); NEUTROPHILS # 8.6 10^3/uL (1.5-8.5); NEUTROPHILS % 78.9 % (36.0-66.0); PLATELET COUNT, AUTOMATED 215 10^3/uL (150-450); RED BLOOD COUNT 3.52 10^6/uL (4.30-6.10); WHITE BLOOD COUNT 10.9 10^3/uL (4.0-10.0)
[2022-04-13 07:09] LABS: BLOOD UREA NITROGEN 15 MG/DL (7-18); CALCIUM LEVEL 7.9 MG/DL (8.8-10.2); CARBON DIOXIDE LEVEL 26 MEQ/L (21-32); CHLORIDE LEVEL 105 MEQ/L (98-107); CREATININE FOR GFR 0.58 MG/DL (0.70-1.30); GLOMERULAR FILTRATION RATE > 60.0 (>49); GLUCOSE, FASTING 99 MG/DL (70-100); POTASSIUM SERUM 3.7 MEQ/L (3.5-5.1); SODIUM LEVEL 137 MEQ/L (136-145)
[2022-04-13] MEDS: SYMBICORT 160/4.5MCG INHALER 6GM INH SCH ×2 (07:21→19:15)
[2022-04-13] MEDS: predniSONE 20 MG TAB PO SCH (08:50)
[2022-04-13] MEDS: ENOXAPARIN 40MG/0.4ML SYRINGE (J1650 PER 10MG) SC SCH (08:50)
[2022-04-13] MEDS: PROPRANOLOL 20 MG TAB PO SCH (08:50)
[2022-04-13] MEDS: FOLIC ACID 1MG TAB PO SCH (08:50)
[2022-04-13] MEDS: MULTIVITAMINS/MINERALS THERAP 1 TAB PO SCH (08:50)
[2022-04-13] MEDS: DOCUSATE SODIUM 100MG CAPSULE PO SCH ×2 (08:50→20:27)
[2022-04-13] MEDS: THIAMINE 100 MG TAB PO SCH ×2 (08:50→20:27)
[2022-04-13] MEDS: TAMSULOSIN 0.4 MG CAP PO SCH (08:50)
[2022-04-13] MEDS: NICOTINE 21MG/24HR 1 EA TRANSDERMAL TD SCH (08:51)
[2022-04-13] MEDS: DOXYCYCLINE HYCLATE 100MG TABLET PO SCH ×2 (10:32→20:27)
[2022-04-13 18:07] LABS: MYCOPLASMA PNEUMONIAE IgG 717 U/mL (0-99); MYCOPLASMA PNEUMONIAE IgM <770 U/mL (0-769)
[2022-04-13] MEDS ORDERED: CALCIUM CARBONATE 500 MG CHEW U/D PO PRN (18:40)
[2022-04-13] MEDS ORDERED: NS 500 ML IV ONE ×2 (20:20→21:10)
[2022-04-13] MEDS: guaiFENesin 200 MG TAB PO PRN (20:27)
[2022-04-13] MEDS: cefTRIAXone SOD 1 GM in D5W MINI-BAG PLUS 50 ML IV SCH (20:27)
[2022-04-13] MEDS ORDERED: cefTRIAXone SOD 1 GM in D5W MINI-BAG PLUS 50 ML IV SCH (21:00)
[2022-04-14] MEDS: IPRATROPIUM 0.5MG/ALBUTEROL 2.5MG INH SOL UD 3ML (DUONEB) INH SCH ×3 (04:00→11:19)
[2022-04-14 06:00] VITALS: BP 136/82
[2022-04-14] MEDS: SYMBICORT 160/4.5MCG INHALER 6GM INH SCH (07:23)
[2022-04-14] MEDS: DOCUSATE SODIUM 100MG CAPSULE PO SCH (08:54)
[2022-04-14] MEDS: MULTIVITAMINS/MINERALS THERAP 1 TAB PO SCH (08:55)
[2022-04-14] MEDS: TAMSULOSIN 0.4 MG CAP PO SCH (08:55)
[2022-04-14] MEDS: FOLIC ACID 1MG TAB PO SCH (08:55)
[2022-04-14] MEDS: DOXYCYCLINE HYCLATE 100MG TABLET PO SCH (08:56)
[2022-04-14] MEDS: predniSONE 20 MG TAB PO SCH (08:56)
[2022-04-14] MEDS: ENOXAPARIN 40MG/0.4ML SYRINGE (J1650 PER 10MG) SC SCH (08:57)
[2022-04-14] MEDS: NICOTINE 21MG/24HR 1 EA TRANSDERMAL TD SCH (08:58)
[2022-04-14] MEDS ORDERED: FLUDROCORTISONE ACETATE 0.1 MG TAB PO SCH (09:00)
[2022-04-14] MEDS: THIAMINE 100 MG TAB PO SCH (09:03)
[2022-04-14] MEDS ORDERED: GUAI20TA PO (09:49)
[2022-04-14] MEDS ORDERED: PRED20TA PO (09:49)
[2022-04-14] MEDS ORDERED: PRED10TA2 PO (09:49)
[2022-04-14] MEDS ORDERED: CEFD300C41 PO (09:49)
[2022-04-14] MEDS ORDERED: DOXY100T PO (09:49)
[2022-04-14] MEDS ORDERED: ALBU8.5H INH (09:49)
[2022-04-14] MEDS ORDERED: AMOX875T2 PO (09:49)
[2022-04-14 10:42] VITALS: BP_SYST 102; BP_SYST 105; BP_SYST 84; BP_DIAS 50; BP_DIAS 64; BP_DIAS 67
[2022-04-14] MEDS ORDERED: FLUD0.1T PO (10:50)
[2022-04-14] MEDS ORDERED: CEFDINIR 300 MG CAP (OMNICEF) PO SCH (12:00)
[2022-04-14] MEDS ORDERED: cefTRIAXone SOD 1 GM in D5W MINI-BAG PLUS 50 ML IV SCH (15:00)
[2022-04-14 16:08] LABS: BODY FLUID CULTURE Not indicated. (.); LEGIONELLA ANTIGEN URINE Negative (Negative); ORGANISM ID Not indicated. (.); SPECIMEN SOURCE Urine (.); URINE STREP PNEUMONIAE ANTIGEN Negative (Negative)
[2022-04-15 14:08] LABS: CHLAMYDIA PNEUMONIAE IgM <1:10 (Neg:<1:10)
== END 2022-04-14 14:31 | disposition home or self-care (01) | DRG 193 ==
LOC: EDBD 19:53 → M ED 19:53 → M ED INP 23:54 → M MSPAV 04-12 01:08
PROVIDERS: ADMIT Family Medicine; ATTEND Internal Medicine Nephrology
DX: J18.9 Pneumonia, unspecified organism (principal); E43 Unspecified severe protein-calorie malnutrition; J44.1 Chronic obstructive pulmonary disease with (acute) exacerbation; Z68.1 Body mass index [BMI] 19.9 or less, adult; J44.0 Chronic obstructive pulmonary disease with (acute) lower respiratory infection; F10.10 Alcohol abuse, uncomplicated; I10 Essential (primary) hypertension; F17.210 Nicotine dependence, cigarettes, uncomplicated; H40.9 Unspecified glaucoma; I95.1 Orthostatic hypotension; Z79.899 Other long term (current) drug therapy

== ENCOUNTER 2023-03-19 19:07 | Observation (INO) | payer MEDICARE ==
[~2023-03-19] VITALS: Ht 162.6 cm; Wt 43.2 kg
[~2023-03-19 19:07] MED LIST changes: +ALBU8.5H INH; +AMOX875T2 PO; +CEFD300C42 PO; +DOXY100T PO; -DULE100A INH; +FLUD0.1T PO; +FLUT1BLS5 PO; +GUAI20TA PO; -K-TA10TA2 PO; +MOME13HF8 INH; +POTA-165 PO
[2023-03-19 19:38] LABS: VENOUS BASE EXCESS -1.4 (-2.0-2.0); VENOUS HCO3 24.7 MMOL/L (23.0-27.0); VENOUS O2 SATURATION 53.2 % (60.0-80.0); VENOUS PARTIAL PRESSURE CO2 46.8 mmHg (38.0-50.0); VENOUS PARTIAL PRESSURE O2 31.2 mmHg (30.0-50.0); VENOUS STANDARD HCO3 22.3 MMOL/L; VENOUS TOTAL CO2 26.1 MMOL/L (24.0-28.0)
[2023-03-19 19:43] LABS: BASO % 0.6 % (0.0-1.0); EOS # 0.1 10^3/uL (0.0-0.5); EOS % 1.1 % (0.0-3.0); HEMATOCRIT 36.9 % (42.0-52.0); HEMOGLOBIN 12.1 g/dl (13.5-17.5); LYMPH # 0.6 10^3/uL (1.5-5.0); LYMPH % 9.1 % (24.0-44.0); MEAN CORPUSCULAR HEMOGLOBIN 33.6 pg (27.0-33.0); MEAN CORPUSCULAR HGB CONC 32.8 g/dl (32.0-36.5); MEAN CORPUSCULAR VOLUME 102.5 fl (80.0-96.0); MONO # 0.3 10^3/uL (0.0-0.8); MONO % 4.4 % (2.0-8.0); NEUTROPHILS # 5.6 10^3/uL (1.5-8.5); NEUTROPHILS % 84.5 % (36.0-66.0); PLATELET COUNT, AUTOMATED 227 10^3/uL (150-450); WHITE BLOOD COUNT 6.6 10^3/uL (4.0-10.0)
[2023-03-19] MEDS ORDERED: methylPREDNISolone 125MG 2ML VIAL IV ONE (19:50)
[2023-03-19 20:02] LABS: CK-MB VALUE MASS < 1.0 NG/ML (<3.6)
[2023-03-19 20:04] LABS: ALBUMIN 2.8 G/DL (3.2-5.2); ALKALINE PHOSPHATASE 85 U/L (46-116); ALT/SGPT 15 U/L (7.0-40); AST/SGOT 16 U/L (<34); BILIRUBIN,DIRECT 0.4 MG/DL (<0.4); BILIRUBIN,TOTAL 0.8 MG/DL (0.3-1.2); BLOOD UREA NITROGEN 8 MG/DL (9-23); CARBON DIOXIDE LEVEL 26 MMOL/L (20-31); CHLORIDE LEVEL 103 MMOL/L (98-107); CREATININE FOR GFR 0.71 MG/DL (0.70-1.30); GLOMERULAR FILTRATION RATE > 60.0 (>49); GLUCOSE, FASTING 88 MG/DL (74-106); POTASSIUM SERUM 4.5 MMOL/L (3.5-5.1); SODIUM LEVEL 137 MMOL/L (136-145); TOTAL PROTEIN 5.8 G/DL (5.7-8.2)
[2023-03-19 20:06] LABS: CPK CREATINE PHOSPHOKINASE 29 U/L (46-171); MB/CK RELATIVE INDEX 3.44 (< OR =4)
[2023-03-19] MEDS: IPRATROPIUM 0.5MG/ALBUTEROL 2.5MG INH SOL UD 3ML (DUONEB) NEB PRN ×2 (20:08→20:10)
[2023-03-19 20:12] LABS: RSV AMPLIFICATION NEGATIVE (NEGATIVE)
[2023-03-19] MEDS ORDERED: AZITHROMYCIN 250MG TABLET PO SCH (21:00)
[2023-03-19] MEDS ORDERED: MAG SULF 1GM/100ML (MAG RUN) 1 GM in IV 1 EA IV ONE (21:35)
[2023-03-19 21:36] LABS: MAGNESIUM LEVEL 1.9 MG/DL (1.8-2.4)
[2023-03-19] MEDS ORDERED: DOXYCYCLINE HYCLATE 100MG TABLET PO ONE (21:40)
[2023-03-19] MEDS ORDERED: DOXY-443 PO (21:55)
[2023-03-19] MEDS ORDERED: PRED20TA PO (21:55)
[2023-03-19] MEDS ORDERED: NICOTINE 7 MG/24 HR TRANSDERMAL TD PRN (23:30)
[2023-03-19] MEDS ORDERED: ATEN50TA2 PO (23:42)
[2023-03-19] MEDS ORDERED: LORazepam 2 MG TAB PO PRN (23:45)
[2023-03-19] MEDS ORDERED: HOME MED LIST COMPLETE! XX SCH (23:45)
[2023-03-20] MEDS ORDERED: IPRATROPIUM 0.5MG/ALBUTEROL 2.5MG INH SOL UD 3ML (DUONEB) NEB SCH (02:00)
[2023-03-20] MEDS: THIAMINE 100 MG TAB PO SCH ×3 (02:04→21:25)
[2023-03-20] MEDS ORDERED: MIDODRINE 5 MG TAB PO ONE (07:05)
[2023-03-20] MEDS ORDERED: NS 1,000 ML IV ONE (07:05)
[2023-03-20 07:51] LABS: BLOOD UREA NITROGEN 11 MG/DL (9-23); CALCIUM LEVEL 7.9 MG/DL (8.3-10.6); CARBON DIOXIDE LEVEL 21 MMOL/L (20-31); CHLORIDE LEVEL 105 MMOL/L (98-107); CREATININE FOR GFR 0.62 MG/DL (0.70-1.30); GLOMERULAR FILTRATION RATE > 60.0 (>49); GLUCOSE, FASTING 152 MG/DL (74-106); POTASSIUM SERUM 4.2 MMOL/L (3.5-5.1); SODIUM LEVEL 136 MMOL/L (136-145)
[2023-03-20] MEDS: AZITHROMYCIN 250MG TABLET PO SCH (08:14)
[2023-03-20] MEDS: ENOXAPARIN 40MG/0.4ML SYRINGE (J1650 PER 10MG) SC SCH (08:14)
[2023-03-20] MEDS: predniSONE 20 MG TAB PO SCH (08:15)
[2023-03-20] MEDS: FOLIC ACID 1MG TAB PO SCH (08:15)
[2023-03-20] MEDS: MULTIVITAMINS/MINERALS THERAP 1 TAB PO SCH (08:15)
[2023-03-20 08:17] VITALS: BP 126/82
[2023-03-20] MEDS ORDERED: ISOVUE-370 76% 100ML VIAL As Ordered ONE (08:53)
[2023-03-20] MEDS: IPRATROPIUM 0.5MG/ALBUTEROL 2.5MG INH SOL UD 3ML (DUONEB) NEB SCH ×5 (08:54→20:20)
[2023-03-20 09:10] LABS: CK-MB VALUE MASS < 1.0 NG/ML (<3.6)
[2023-03-20 09:17] LABS: CPK CREATINE PHOSPHOKINASE 18 U/L (46-171); MB/CK RELATIVE INDEX 5.55 (< OR =4)
[2023-03-20 13:45] VITALS: BP 113/73; TEMP 98.2; O2SAT 95
[2023-03-20 14:00] VITALS: BP 113/73
[2023-03-20 15:23] LABS: CK-MB VALUE MASS < 1.0 NG/ML (<3.6)
[2023-03-20 15:29] LABS: CPK CREATINE PHOSPHOKINASE 21 U/L (46-171); MB/CK RELATIVE INDEX 4.76 (< OR =4)
[2023-03-20 19:38] VITALS: BP 107/73; TEMP 97.9; O2SAT 96
[2023-03-20 21:34] LABS: CK-MB VALUE MASS < 1.0 NG/ML (<3.6)
[2023-03-20 21:35] LABS: CPK CREATINE PHOSPHOKINASE 22 U/L (46-171); MB/CK RELATIVE INDEX 4.54 (< OR =4)
[2023-03-20 22:00] VITALS: BP 107/73
[2023-03-21] MEDS: CALCIUM CARBONATE 500 MG CHEW U/D PO PRN ×2 (00:50→20:04)
[2023-03-21] MEDS: IPRATROPIUM 0.5MG/ALBUTEROL 2.5MG INH SOL UD 3ML (DUONEB) NEB PRN (00:55)
[2023-03-21 02:18] LABS: CK-MB VALUE MASS < 1.0 NG/ML (<3.6)
[2023-03-21 02:19] LABS: CPK CREATINE PHOSPHOKINASE 21 U/L (46-171); MB/CK RELATIVE INDEX 4.76 (< OR =4)
[2023-03-21 05:14] VITALS: BP 107/73; TEMP 98.2; O2SAT 93
[2023-03-21] MEDS ORDERED: ALBU8.5H INH (07:12)
[2023-03-21] MEDS ORDERED: PRED20TA PO (07:12)
[2023-03-21] MEDS ORDERED: SPIR1CAP INH (07:12)
[2023-03-21] MEDS ORDERED: AZIT-12 PO (07:12)
[2023-03-21] MEDS ORDERED: PRIL20TA2 PO (07:12)
[2023-03-21] MEDS ORDERED: PULM90IN INH (07:12)
[2023-03-21] MEDS ORDERED: NICO7PA TD (07:12)
[2023-03-21] MEDS ORDERED: DOXY-444 PO (07:12)
[2023-03-21] MEDS ORDERED: PRED10TA2 PO (07:12)
[2023-03-21] MEDS: IPRATROPIUM 0.5MG/ALBUTEROL 2.5MG INH SOL UD 3ML (DUONEB) NEB SCH ×4 (07:14→19:44)
[2023-03-21] MEDS: ENOXAPARIN 40MG/0.4ML SYRINGE (J1650 PER 10MG) SC SCH ×2 (09:00→09:33)
[2023-03-21] MEDS: THIAMINE 100 MG TAB PO SCH ×2 (09:32→20:04)
[2023-03-21] MEDS: MULTIVITAMINS/MINERALS THERAP 1 TAB PO SCH (09:32)
[2023-03-21] MEDS: predniSONE 20 MG TAB PO SCH (09:33)
[2023-03-21] MEDS: FOLIC ACID 1MG TAB PO SCH (09:33)
[2023-03-21] MEDS: AZITHROMYCIN 250MG TABLET PO SCH (09:33)
[2023-03-21 14:00] VITALS: BP 128/93; TEMP 98.1; O2SAT 95
[2023-03-21 14:30] VITALS: BP 128/93
[2023-03-21 19:32] VITALS: BP 129/84; TEMP 98.1; O2SAT 97
[2023-03-21 22:00] VITALS: BP 129/84
[2023-03-22] MEDS: IPRATROPIUM 0.5MG/ALBUTEROL 2.5MG INH SOL UD 3ML (DUONEB) NEB PRN ×2 (01:34→23:00)
[2023-03-22 05:20] VITALS: BP 125/79; TEMP 98.1; O2SAT 95
[2023-03-22 06:19] LABS: HEMATOCRIT 31.1 % (42.0-52.0); HEMOGLOBIN 10.3 g/dl (13.5-17.5); MEAN CORPUSCULAR HGB CONC 33.1 g/dl (32.0-36.5); MEAN CORPUSCULAR VOLUME 102.6 fl (80.0-96.0); PLATELET COUNT, AUTOMATED 207 10^3/uL (150-450); RED BLOOD COUNT 3.03 10^6/uL (4.30-6.10); WHITE BLOOD COUNT 6.6 10^3/uL (4.0-10.0)
[2023-03-22] MEDS: IPRATROPIUM 0.5MG/ALBUTEROL 2.5MG INH SOL UD 3ML (DUONEB) NEB SCH ×4 (07:32→19:22)
[2023-03-22] MEDS: ENOXAPARIN 40MG/0.4ML SYRINGE (J1650 PER 10MG) SC SCH (09:00)
[2023-03-22] MEDS: THIAMINE 100 MG TAB PO SCH (09:58)
[2023-03-22] MEDS: FOLIC ACID 1MG TAB PO SCH (09:58)
[2023-03-22] MEDS: predniSONE 20 MG TAB PO SCH (09:58)
[2023-03-22] MEDS: MULTIVITAMINS/MINERALS THERAP 1 TAB PO SCH (09:58)
[2023-03-22] MEDS: AZITHROMYCIN 250MG TABLET PO SCH (09:59)
[2023-03-22 14:00] VITALS: BP 108/58; TEMP 98.1; O2SAT 95
[2023-03-22 19:36] VITALS: BP 122/68; TEMP 98.6; O2SAT 98
[2023-03-23 05:52] VITALS: BP 144/87; TEMP 98.2; O2SAT 98
[2023-03-23] MEDS: IPRATROPIUM 0.5MG/ALBUTEROL 2.5MG INH SOL UD 3ML (DUONEB) NEB PRN (06:07)
[2023-03-23] MEDS: IPRATROPIUM 0.5MG/ALBUTEROL 2.5MG INH SOL UD 3ML (DUONEB) NEB SCH ×4 (08:00→20:32)
[2023-03-23 09:00] VITALS: BP 97/72
[2023-03-23] MEDS: ENOXAPARIN 40MG/0.4ML SYRINGE (J1650 PER 10MG) SC SCH (09:00)
[2023-03-23] MEDS: MULTIVITAMINS/MINERALS THERAP 1 TAB PO SCH (09:01)
[2023-03-23] MEDS: FOLIC ACID 1MG TAB PO SCH (09:01)
[2023-03-23] MEDS: AZITHROMYCIN 250MG TABLET PO SCH (09:01)
[2023-03-23] MEDS: predniSONE 20 MG TAB PO SCH (09:01)
[2023-03-23] MEDS: CALCIUM CARBONATE 500 MG CHEW U/D PO PRN (09:02)
[2023-03-23] MEDS ORDERED: CALCIUM CARBONATE 500 MG CHEW U/D PO PRN (10:45)
[2023-03-23] MEDS ORDERED: CALCIUM CARBONATE 500 MG CHEW U/D PO ONE (10:45)
[2023-03-23] MEDS ORDERED: PILL CUTTER 1 EACH XX PRN (10:55)
[2023-03-23] MEDS: FAMOTIDINE 20 MG TAB PO SCH (10:59)
[2023-03-23 14:00] VITALS: BP 96/66
[2023-03-24] MEDS: IPRATROPIUM 0.5MG/ALBUTEROL 2.5MG INH SOL UD 3ML (DUONEB) NEB PRN ×3 (00:06→23:46)
[2023-03-24 05:39] VITALS: BP 124/83; TEMP 98.1; O2SAT 98
[2023-03-24] MEDS: IPRATROPIUM 0.5MG/ALBUTEROL 2.5MG INH SOL UD 3ML (DUONEB) NEB SCH ×4 (07:35→19:09)
[2023-03-24] MEDS: ENOXAPARIN 40MG/0.4ML SYRINGE (J1650 PER 10MG) SC SCH (09:00)
[2023-03-24] MEDS: predniSONE 20 MG TAB PO SCH (09:18)
[2023-03-24] MEDS: FAMOTIDINE 20 MG TAB PO SCH (09:19)
[2023-03-24] MEDS: FOLIC ACID 1MG TAB PO SCH (09:19)
[2023-03-24] MEDS: MULTIVITAMINS/MINERALS THERAP 1 TAB PO SCH (09:19)
[2023-03-24] MEDS: AZITHROMYCIN 250MG TABLET PO SCH (09:19)
[2023-03-24 14:00] VITALS: BP 100/62; TEMP 98.1; O2SAT 96
[2023-03-24 19:42] VITALS: BP 105/63; TEMP 98.2; O2SAT 97
[2023-03-25 05:38] VITALS: BP 117/79; TEMP 98.6; O2SAT 99
[2023-03-25] MEDS: IPRATROPIUM 0.5MG/ALBUTEROL 2.5MG INH SOL UD 3ML (DUONEB) NEB PRN (05:56)
[2023-03-25 07:24] LABS: HEMATOCRIT 33.8 % (42.0-52.0); HEMOGLOBIN 10.9 g/dl (13.5-17.5); MEAN CORPUSCULAR HEMOGLOBIN 33.4 pg (27.0-33.0); MEAN CORPUSCULAR HGB CONC 32.2 g/dl (32.0-36.5); MEAN CORPUSCULAR VOLUME 103.7 fl (80.0-96.0); PLATELET COUNT, AUTOMATED 241 10^3/uL (150-450); RED BLOOD COUNT 3.26 10^6/uL (4.30-6.10); WHITE BLOOD COUNT 6.5 10^3/uL (4.0-10.0)
[2023-03-25] MEDS: IPRATROPIUM 0.5MG/ALBUTEROL 2.5MG INH SOL UD 3ML (DUONEB) NEB SCH ×3 (07:41→19:40)
[2023-03-25] MEDS: ENOXAPARIN 40MG/0.4ML SYRINGE (J1650 PER 10MG) SC SCH (09:00)
[2023-03-25] MEDS: FAMOTIDINE 20 MG TAB PO SCH (09:37)
[2023-03-25] MEDS: predniSONE 20 MG TAB PO SCH (09:37)
[2023-03-25] MEDS: MULTIVITAMINS/MINERALS THERAP 1 TAB PO SCH (09:38)
[2023-03-25] MEDS: FOLIC ACID 1MG TAB PO SCH (09:38)
[2023-03-26 06:00] VITALS: BP 142/81; TEMP 96.6; O2SAT 96
[2023-03-26] MEDS: IPRATROPIUM 0.5MG/ALBUTEROL 2.5MG INH SOL UD 3ML (DUONEB) NEB SCH ×4 (07:43→19:50)
[2023-03-26] MEDS: predniSONE 20 MG TAB PO SCH (09:35)
[2023-03-26] MEDS: FAMOTIDINE 20 MG TAB PO SCH (09:35)
[2023-03-26] MEDS: FOLIC ACID 1MG TAB PO SCH (09:35)
[2023-03-26] MEDS: MULTIVITAMINS/MINERALS THERAP 1 TAB PO SCH (09:35)
[2023-03-26] MEDS: MIRALAX *UNIT DOSE* 17GM PACKET PO PRN (09:35)
[2023-03-26] MEDS: ENOXAPARIN 40MG/0.4ML SYRINGE (J1650 PER 10MG) SC SCH (09:36)
[2023-03-26 19:51] VITALS: O2SAT 96
[2023-03-26] MEDS ORDERED: ONDANSETRON 4MG ORAL DISINTEGRATING TAB PO PRN (21:00)
[2023-03-27 06:00] VITALS: BP 143/80; TEMP 98.2; O2SAT 96
[2023-03-27] MEDS: IPRATROPIUM 0.5MG/ALBUTEROL 2.5MG INH SOL UD 3ML (DUONEB) NEB SCH ×4 (07:17→19:36)
[2023-03-27] MEDS: ENOXAPARIN 40MG/0.4ML SYRINGE (J1650 PER 10MG) SC SCH (08:30)
[2023-03-27] MEDS: MULTIVITAMINS/MINERALS THERAP 1 TAB PO SCH (08:30)
[2023-03-27] MEDS: MIRALAX *UNIT DOSE* 17GM PACKET PO PRN (08:30)
[2023-03-27] MEDS: FAMOTIDINE 20 MG TAB PO SCH (08:30)
[2023-03-27] MEDS: predniSONE 20 MG TAB PO SCH (08:30)
[2023-03-27] MEDS: FOLIC ACID 1MG TAB PO SCH (08:30)
[2023-03-27 19:38] VITALS: O2SAT 96
[2023-03-28] MEDS: IPRATROPIUM 0.5MG/ALBUTEROL 2.5MG INH SOL UD 3ML (DUONEB) NEB PRN (00:26)
[2023-03-28 06:00] VITALS: BP 140/80; TEMP 98.1; O2SAT 96
[2023-03-28 06:37] LABS: HEMATOCRIT 30.9 % (42.0-52.0); HEMOGLOBIN 10.1 g/dl (13.5-17.5); MEAN CORPUSCULAR HEMOGLOBIN 33.1 pg (27.0-33.0); MEAN CORPUSCULAR HGB CONC 32.7 g/dl (32.0-36.5); MEAN CORPUSCULAR VOLUME 101.3 fl (80.0-96.0); PLATELET COUNT, AUTOMATED 260 10^3/uL (150-450); RED BLOOD COUNT 3.05 10^6/uL (4.30-6.10); WHITE BLOOD COUNT 7.6 10^3/uL (4.0-10.0)
[2023-03-28] MEDS: IPRATROPIUM 0.5MG/ALBUTEROL 2.5MG INH SOL UD 3ML (DUONEB) NEB SCH ×4 (07:44→19:38)
[2023-03-28] MEDS: MIRALAX *UNIT DOSE* 17GM PACKET PO PRN (08:02)
[2023-03-28] MEDS: MULTIVITAMINS/MINERALS THERAP 1 TAB PO SCH (08:03)
[2023-03-28] MEDS: predniSONE 20 MG TAB PO SCH (08:03)
[2023-03-28] MEDS: FAMOTIDINE 20 MG TAB PO SCH (08:03)
[2023-03-28] MEDS: FOLIC ACID 1MG TAB PO SCH (08:03)
[2023-03-28] MEDS: ENOXAPARIN 40MG/0.4ML SYRINGE (J1650 PER 10MG) SC SCH (08:27)
[2023-03-28] MEDS: MOM 30ML SUSPENSION UDC PO PRN (21:42)
[2023-03-28] MEDS: SENNA 8.6 MG TAB (SENOKOT) PO PRN (21:42)
[2023-03-29 05:52] VITALS: BP 151/90; TEMP 98.1; O2SAT 96
[2023-03-29] MEDS: IPRATROPIUM 0.5MG/ALBUTEROL 2.5MG INH SOL UD 3ML (DUONEB) NEB SCH ×5 (07:37→23:50)
[2023-03-29] MEDS: FOLIC ACID 1MG TAB PO SCH (08:18)
[2023-03-29] MEDS: predniSONE 20 MG TAB PO SCH (08:18)
[2023-03-29] MEDS: SENNA 8.6 MG TAB (SENOKOT) PO PRN ×2 (08:19→20:30)
[2023-03-29] MEDS: FAMOTIDINE 20 MG TAB PO SCH (08:19)
[2023-03-29] MEDS: MULTIVITAMINS/MINERALS THERAP 1 TAB PO SCH (08:20)
[2023-03-29] MEDS: MOM 30ML SUSPENSION UDC PO PRN (08:23)
[2023-03-29] MEDS: ENOXAPARIN 40MG/0.4ML SYRINGE (J1650 PER 10MG) SC SCH (08:43)
[2023-03-29] MEDS: MIRALAX *UNIT DOSE* 17GM PACKET PO PRN (14:51)
[2023-03-30] MEDS: IPRATROPIUM 0.5MG/ALBUTEROL 2.5MG INH SOL UD 3ML (DUONEB) NEB SCH ×3 (04:13→12:30)
[2023-03-30 06:10] VITALS: BP 139/93; TEMP 98.1; O2SAT 98
[2023-03-30] MEDS ORDERED: BISACODYL 10MG SUPP PR ONE (08:15)
[2023-03-30] MEDS: predniSONE 20 MG TAB PO SCH (08:58)
[2023-03-30] MEDS: MULTIVITAMINS/MINERALS THERAP 1 TAB PO SCH (08:59)
[2023-03-30] MEDS: FAMOTIDINE 20 MG TAB PO SCH (08:59)
[2023-03-30] MEDS: FOLIC ACID 1MG TAB PO SCH (08:59)
[2023-03-30] MEDS ORDERED: POLYETHYLENE GLYCOL (MIRALAX) 238GM BOTTLE PO ONE (09:00)
[2023-03-30] MEDS ORDERED: GOLYTELY SOLN 4000 ML BTL PO ONE (09:00)
[2023-03-30] MEDS: ENOXAPARIN 40MG/0.4ML SYRINGE (J1650 PER 10MG) SC SCH (09:00)
[2023-03-30] MEDS ORDERED: FLEET ENEMA PR ONE (11:00)
== END 2023-03-30 15:55 | disposition left against medical advice (07) ==
LOC: EDBD 19:07 → M ED 19:07 → M ED INP 19:08 → ENRESERV 03-20 11:42 → M MS5PR 03-20 13:48
PROVIDERS: ADMIT Internal Medicine; ATTEND General Practice
DX: J44.1 Chronic obstructive pulmonary disease with (acute) exacerbation (principal); R53.1 Weakness; K59.00 Constipation, unspecified; R07.89 Other chest pain; F17.210 Nicotine dependence, cigarettes, uncomplicated; N40.0 Benign prostatic hyperplasia without lower urinary tract symptoms; E43 Unspecified severe protein-calorie malnutrition; Z79.899 Other long term (current) drug therapy; Z79.2 Long term (current) use of antibiotics; Z79.52 Long term (current) use of systemic steroids
CPT/HCPCS: 36415; 71045; 71275; 80048; 80076; 82550; 82553; 82803; 83735; 83874; 83880; 84145; 84484; 85025; 85027; 85652; 86140; 87040; 87486; 87581; 87631; 87633; 87798; 93005; 93041; 93306; 94640; 94760; 96361; 96374; 96376; 97116; 97161; 97530; 99285; G0378; J1650; J2930; J3475; J7512; Q9967

== ENCOUNTER 2023-04-29 11:45 | Inpatient (IN) | payer MEDICARE ==
[~2023-04-29] VITALS: Ht 152.4 cm; Wt 53.9 kg
[2023-04-29] MEDS: NICOTINE 21MG/24HR 1 EA TRANSDERMAL TD SCH (09:00)
[~2023-04-29 11:45] MED LIST changes: +ATEN50TA2 PO; +AZIT-12 PO; +CEFD300C41 PO; -CEFD300C42 PO; +DOXY-443 PO; +DOXY-444 PO; +NICO7PA TD; +PRIL20TA2 PO; +PULM90IN INH
[2023-04-29 13:12] LABS: BASO # 0.1 10^3/uL (0.0-0.2); BASO % 0.6 % (0.0-1.0); EOS # 0.1 10^3/uL (0.0-0.5); EOS % 1.4 % (0.0-3.0); HEMATOCRIT 40.7 % (42.0-52.0); HEMOGLOBIN 13.4 g/dl (13.5-17.5); LYMPH # 0.9 10^3/uL (1.5-5.0); LYMPH % 8.6 % (24.0-44.0); MEAN CORPUSCULAR HEMOGLOBIN 35.4 pg (27.0-33.0); MEAN CORPUSCULAR HGB CONC 32.9 g/dl (32.0-36.5); MEAN CORPUSCULAR VOLUME 107.7 fl (80.0-96.0); MONO # 0.7 10^3/uL (0.0-0.8); MONO % 7.4 % (2.0-8.0); NEUTROPHILS # 8.1 10^3/uL (1.5-8.5); NEUTROPHILS % 81.5 % (36.0-66.0); PLATELET COUNT, AUTOMATED 298 10^3/uL (150-450); RED BLOOD COUNT 3.78 10^6/uL (4.30-6.10); WHITE BLOOD COUNT 9.9 10^3/uL (4.0-10.0)
[2023-04-29 13:32] LABS: VENOUS BASE EXCESS 0.6 (-2.0-2.0); VENOUS O2 SATURATION 63.8 % (60.0-80.0); VENOUS PARTIAL PRESSURE CO2 56.1 mmHg (38.0-50.0); VENOUS PARTIAL PRESSURE O2 34.5 mmHg (30.0-50.0); VENOUS PH 7.316 UNITS (7.330-7.430); VENOUS STANDARD HCO3 24.2 MMOL/L; VENOUS TOTAL CO2 29.7 MMOL/L (24.0-28.0)
[2023-04-29 13:36] LABS: ALBUMIN 3.5 G/DL (3.2-5.2); ALKALINE PHOSPHATASE 80 U/L (46-116); ALT/SGPT 16 U/L (7.0-40); AST/SGOT 14 U/L (<34); BILIRUBIN,DIRECT 0.2 MG/DL (<0.4); BILIRUBIN,TOTAL 0.6 MG/DL (0.3-1.2); BLOOD UREA NITROGEN 18 MG/DL (9-23); CALCIUM LEVEL 8.6 MG/DL (8.3-10.6); CARBON DIOXIDE LEVEL 29 MMOL/L (20-31); CHLORIDE LEVEL 106 MMOL/L (98-107); CREATININE FOR GFR 0.82 MG/DL (0.70-1.30); GLOMERULAR FILTRATION RATE > 60.0 (>49); GLUCOSE, FASTING 89 MG/DL (74-106); POTASSIUM SERUM 4.4 MMOL/L (3.5-5.1); SODIUM LEVEL 140 MMOL/L (136-145)
[2023-04-29 14:25] LABS: CK-MB VALUE MASS 2.5 NG/ML (<3.6)
[2023-04-29 14:27] LABS: CPK CREATINE PHOSPHOKINASE 61 U/L (46-171); MB/CK RELATIVE INDEX 4.09 (< OR =4)
[2023-04-29 14:29] LABS: THYROID STIMULATING HORMONE 0.993 uIU/ML (0.55-4.78)
[2023-04-29 14:30] LABS: FREE T4 1.21 NG/DL (0.89-1.76)
[2023-04-29] MEDS: IPRATROPIUM 0.5MG/ALBUTEROL 2.5MG INH SOL UD 3ML (DUONEB) NEB PRN ×3 (14:45→15:01)
[2023-04-29 15:33] LABS: CK-MB VALUE MASS 3.5 NG/ML (<3.6)
[2023-04-29 15:34] LABS: MB/CK RELATIVE INDEX 5.93 (< OR =4)
[2023-04-29] MEDS ORDERED: LORazepam 2 MG TAB PO PRN (18:10)
[2023-04-29] MEDS ORDERED: ALBUTEROL SULFATE 2.5MG/0.5ML INH NEB SOLN NEB PRN (18:10)
[2023-04-29] MEDS ORDERED: MED REC IN PROGRESS XX SCH (18:25)
[2023-04-29 18:41] VITALS: O2SAT 93
[2023-04-29 19:09] LABS: IRON (FE) 132 UG/DL (65-175); TOTAL IRON BINDING CAPACITY 307 UG/DL (250-425)
[2023-04-29 19:11] LABS: FERRITIN 129.7 NG/ML (10.5-307.3); FOLATE > 24.0 NG/ML (>5.4); VITAMIN B12 LEVEL 778 PG/ML (211-911)
[2023-04-29] MEDS ORDERED: B-12100010 PO (19:43)
[2023-04-29] MEDS ORDERED: IPRATROPIUM 0.5MG/ALBUTEROL 2.5MG INH SOL UD 3ML (DUONEB) NEB SCH (20:00)
[2023-04-29] MEDS ORDERED: HOME MED LIST COMPLETE! XX SCH (20:00)
[2023-04-29] MEDS: methylPREDNISolone 40MG 1ML VIAL IV SCH (20:18)
[2023-04-29] MEDS: FOLIC ACID 1MG TAB PO SCH (20:18)
[2023-04-29] MEDS: THIAMINE 100 MG TAB PO SCH (20:18)
[2023-04-29] MEDS: guaiFENesin 200 MG TAB PO SCH (20:19)
[2023-04-29] MEDS: MULTIVITAMINS/MINERALS THERAP 1 TAB PO SCH (20:24)
[2023-04-29] MEDS: IPRATROPIUM 0.5MG/ALBUTEROL 2.5MG INH SOL UD 3ML (DUONEB) NEB SCH (21:27)
[2023-04-29 23:13] VITALS: BP 127/78; TEMP 97.9; O2SAT 97
[2023-04-29 23:20] VITALS: BP 127/78
[2023-04-30] MEDS: IPRATROPIUM 0.5MG/ALBUTEROL 2.5MG INH SOL UD 3ML (DUONEB) NEB SCH ×3 (00:42→08:20)
[2023-04-30] MEDS: methylPREDNISolone 40MG 1ML VIAL IV SCH ×2 (02:34→08:41)
[2023-04-30 06:00] VITALS: BP 129/77
[2023-04-30 06:22] VITALS: BP 129/77; TEMP 97.9; O2SAT 95
[2023-04-30 06:46] LABS: BASO % 0.1 % (0.0-1.0); HEMATOCRIT 38.5 % (42.0-52.0); HEMOGLOBIN 12.8 g/dl (13.5-17.5); LYMPH # 0.5 10^3/uL (1.5-5.0); LYMPH % 5.7 % (24.0-44.0); MEAN CORPUSCULAR HGB CONC 33.2 g/dl (32.0-36.5); MEAN CORPUSCULAR VOLUME 105.2 fl (80.0-96.0); MONO # 0.3 10^3/uL (0.0-0.8); MONO % 3.5 % (2.0-8.0); NEUTROPHILS # 7.8 10^3/uL (1.5-8.5); NEUTROPHILS % 90.4 % (36.0-66.0); PLATELET COUNT, AUTOMATED 303 10^3/uL (150-450); RED BLOOD COUNT 3.66 10^6/uL (4.30-6.10); WHITE BLOOD COUNT 8.6 10^3/uL (4.0-10.0)
[2023-04-30 07:08] LABS: BLOOD UREA NITROGEN 18 MG/DL (9-23); CALCIUM LEVEL 8.5 MG/DL (8.3-10.6); CARBON DIOXIDE LEVEL 27 MMOL/L (20-31); CHLORIDE LEVEL 104 MMOL/L (98-107); CREATININE FOR GFR 0.67 MG/DL (0.70-1.30); GLOMERULAR FILTRATION RATE > 60.0 (>49); GLUCOSE, FASTING 137 MG/DL (74-106); POTASSIUM SERUM 4.1 MMOL/L (3.5-5.1); SODIUM LEVEL 138 MMOL/L (136-145)
[2023-04-30 07:24] LABS: PROCALCITONIN <0.04 ng/ml
[2023-04-30 08:41] VITALS: BP 129/77
[2023-04-30] MEDS: FOLIC ACID 1MG TAB PO SCH (08:41)
[2023-04-30] MEDS: MULTIVITAMINS/MINERALS THERAP 1 TAB PO SCH (08:41)
[2023-04-30] MEDS: guaiFENesin 200 MG TAB PO SCH (08:42)
[2023-04-30] MEDS: THIAMINE 100 MG TAB PO SCH (08:42)
[2023-04-30] MEDS: NICOTINE 21MG/24HR 1 EA TRANSDERMAL TD SCH (08:53)
[2023-04-30] MEDS ORDERED: ENOXAPARIN 40MG/0.4ML SYRINGE (J1650 PER 10MG) SC SCH (09:00)
[2023-04-30] MEDS ORDERED: TAMSULOSIN 0.4 MG CAP PO SCH (09:00)
[2023-04-30] MEDS ORDERED: atenoloL 50 MG TAB PO SCH (09:00)
[2023-04-30] MEDS ORDERED: PANTOPRAZOLE 40MG VIAL IV SCH (09:00)
[2023-04-30] MEDS ORDERED: AZITHROMYCIN 250MG TABLET PO SCH (09:00)
[2023-04-30] MEDS ORDERED: THIA100TA PO (09:47)
[2023-04-30] MEDS ORDERED: AZIT-12 PO (09:47)
[2023-04-30] MEDS ORDERED: PRED20TA PO (09:47)
[2023-04-30] MEDS ORDERED: PRED10TA2 PO (09:47)
[2023-04-30] MEDS ORDERED: SPIR1CAP INH (10:29)
== END 2023-04-30 12:00 | disposition home health service (06) | DRG 192 ==
LOC: M ED 11:45 → EDBD 11:45 → M ED INP 19:01 → ENRESERV 22:12 → M MS5PR 23:16
PROVIDERS: ADMIT Internal Medicine; ATTEND Internal Medicine
DX: J44.1 Chronic obstructive pulmonary disease with (acute) exacerbation (principal); K21.9 Gastro-esophageal reflux disease without esophagitis; I10 Essential (primary) hypertension; F17.210 Nicotine dependence, cigarettes, uncomplicated; F10.20 Alcohol dependence, uncomplicated; R60.0 Localized edema; D64.9 Anemia, unspecified; Z79.52 Long term (current) use of systemic steroids; Z79.899 Other long term (current) drug therapy; Z20.822 Contact with and (suspected) exposure to COVID-19; Z71.6 Tobacco abuse counseling

== ENCOUNTER 2024-03-14 17:43 | Inpatient (IN) | payer MEDICARE, MEDICAID ==
[~2024-03-14 17:43] MED LIST changes: +B-12100010 PO; +CEFD1CAP9 PO; -CEFD300C41 PO; +DOXY-323 PO; +DOXY-440 PO; -DOXY-443 PO; -DOXY-444 PO; +THIA100TA PO
[2024-03-14] MEDS ORDERED: ISOVUE-370 76% 100ML VIAL As Ordered ONE (18:39)
[2024-03-14] MEDS: MORPHINE 2 MG/ML 1ML VIAL IV ONE (18:40)
[2024-03-14 18:41] LABS: BASO % 0.4 % (0.0-1.0); EOS # 0.1 10^3/uL (0.0-0.5); EOS % 0.8 % (0.0-3.0); HEMATOCRIT 44.6 % (42.0-52.0); HEMOGLOBIN 15.3 g/dl (13.5-17.5); LYMPH # 1.1 10^3/uL (1.5-5.0); LYMPH % 12.3 % (24.0-44.0); MEAN CORPUSCULAR HEMOGLOBIN 33.8 pg (27.0-33.0); MEAN CORPUSCULAR HGB CONC 34.3 g/dl (32.0-36.5); MEAN CORPUSCULAR VOLUME 98.7 fl (80.0-96.0); MONO % 11.4 % (2.0-8.0); NEUTROPHILS # 6.7 10^3/uL (1.5-8.5); NEUTROPHILS % 74.5 % (36.0-66.0); PLATELET COUNT, AUTOMATED 179 10^3/uL (150-450); RED BLOOD COUNT 4.52 10^6/uL (4.30-6.10)
[2024-03-14 18:55] LABS: INR 0.97; PARTIAL THROMBOPLASTIN TIME 28.9 SECONDS (24.8-34.2); PROTHROMBIN TIME 12.6 SECONDS (12.5-14.5)
[2024-03-14 19:06] LABS: ETHYL ALCOHOL (ETHANOL) < 0.003 % (0.000-0.010)
[2024-03-14 19:10] LABS: FREE T4 1.63 NG/DL (0.89-1.76); THYROID STIMULATING HORMONE 1.454 uIU/ML (0.55-4.78)
[2024-03-14] MEDS: IPRATROPIUM 0.5MG/ALBUTEROL 2.5MG INH SOL UD 3ML (DUONEB) NEB ONE (20:07)
[2024-03-14 20:49] LABS: AMPHETAMINES LEVEL URINE NEGATIVE (NEGATIVE); BARBITURATES URINE NEGATIVE (NEGATIVE); BENZODIAZEPINES URINE NEGATIVE (NEGATIVE); CANNABINOIDS URINE NEGATIVE (NEGATIVE); COCAINE METABOLITE URINE NEGATIVE (NEGATIVE); METHADONE URINE NEGATIVE (NEGATIVE); PHENCYCLIDINE URINE NEGATIVE (NEGATIVE)
[2024-03-14 20:52] LABS: OPIATES URINE POSITIVE (NEGATIVE)
[2024-03-14] MEDS: DICLOFENAC EPOLAMINE 1.3% PATCH TOP SCH (21:00)
[2024-03-14] MEDS ORDERED: TIOT18INH INH (21:41)
[2024-03-14] MEDS ORDERED: HOME MED LIST COMPLETE! XX SCH (21:45)
[2024-03-14] MEDS ORDERED: MOM 30ML SUSPENSION UDC PO PRN (21:55)
[2024-03-14] MEDS ORDERED: ACETAMINOPHEN TAB 650MG DOSE (2X325MG) PO PRN (21:55)
[2024-03-14] MEDS ORDERED: ACETAMINOPHEN 500 MG TAB PO SCH (22:00)
[2024-03-14] MEDS ORDERED: ACETAMINOPHEN 500 MG TAB PO PRN (22:20)
[2024-03-14] MEDS ORDERED: MORPHINE 2 MG/ML 1ML VIAL IV PRN (22:25)
[2024-03-14] MEDS ORDERED: IPRATROPIUM 0.5MG/ALBUTEROL 2.5MG INH SOL UD 3ML (DUONEB) NEB PRN (22:30)
[2024-03-14 22:33] LABS: ALBUMIN 3.6 G/DL (3.2-5.2); ALKALINE PHOSPHATASE 104 U/L (46-116); ALT/SGPT 72 U/L (7.0-40); AST/SGOT 37 U/L (<34); BILIRUBIN,TOTAL 1.8 MG/DL (0.3-1.2); BLOOD UREA NITROGEN 11 MG/DL (9-23); CALCIUM LEVEL 8.9 MG/DL (8.3-10.6); CARBON DIOXIDE LEVEL 26 MMOL/L (20-31); CHLORIDE LEVEL 99 MMOL/L (98-107); CREATININE FOR GFR 0.72 MG/DL (0.70-1.30); GLOMERULAR FILTRATION RATE > 60.0 (>42); GLUCOSE, FASTING 90 MG/DL (74-106); POTASSIUM SERUM 4.5 MMOL/L (3.5-5.1); SODIUM LEVEL 132 MMOL/L (136-145); TOTAL PROTEIN 6.8 G/DL (5.7-8.2)
[2024-03-14] MEDS: LIDOCAINE 5% (LIDODERM) PATCH TD ONE (22:35)
[2024-03-14] MEDS ORDERED: KETOROLAC 30 MG/ML 1ML VIAL IV PRN (22:35)
[2024-03-14] MEDS: ACETAMINOPHEN TAB 650MG DOSE (2X325MG) PO ONE (22:35)
[2024-03-14 23:07] LABS: VENOUS HCO3 18.5 MMOL/L (23.0-27.0); VENOUS O2 SATURATION 99.3 % (60.0-80.0); VENOUS PARTIAL PRESSURE CO2 25.3 mmHg (38.0-50.0); VENOUS PARTIAL PRESSURE O2 243.2 mmHg (30.0-50.0); VENOUS PH 7.482 UNITS (7.330-7.430); VENOUS STANDARD HCO3 22.1 MMOL/L; VENOUS TOTAL CO2 19.3 MMOL/L (24.0-28.0)
[2024-03-14] MEDS: GABAPENTIN 100 MG CAP PO SCH (23:17)
[2024-03-14] MEDS: predniSONE 20 MG TAB PO ONE (23:17)
[2024-03-14] MEDS: LORazepam 2 MG TAB PO PRN (23:17)
[2024-03-14] MEDS: AZITHROMYCIN 250MG TABLET PO SCH (23:17)
[2024-03-14] MEDS: THIAMINE 100 MG TAB PO SCH (23:18)
[2024-03-14] MEDS: KETOROLAC 30 MG/ML 1ML VIAL IV SCH (23:18)
[2024-03-14] MEDS: MORPHINE 4 MG/ML 1ML VIAL IV PRN (23:19)
[2024-03-15] VITALS (9 sets, daily range): BP systolic 88–135; BP diastolic 51–80; TEMP 97.5–98.1; O2SAT 93–98
[2024-03-15] MEDS: IPRATROPIUM 0.5MG/ALBUTEROL 2.5MG INH SOL UD 3ML (DUONEB) NEB SCH
[2024-03-15] MEDS: ACETAMINOPHEN 500 MG TAB PO SCH (06:00)
[2024-03-15 08:34] LABS: HEMATOCRIT 45.7 % (42.0-52.0); HEMOGLOBIN 15.2 g/dl (13.5-17.5); LYMPH # 0.5 10^3/uL (1.5-5.0); LYMPH % 10.1 % (24.0-44.0); MEAN CORPUSCULAR HEMOGLOBIN 33.9 pg (27.0-33.0); MEAN CORPUSCULAR HGB CONC 33.3 g/dl (32.0-36.5); MONO # 0.2 10^3/uL (0.0-0.8); MONO % 3.6 % (2.0-8.0); NEUTROPHILS # 3.8 10^3/uL (1.5-8.5); NEUTROPHILS % 85.9 % (36.0-66.0); PLATELET COUNT, AUTOMATED 158 10^3/uL (150-450); RED BLOOD COUNT 4.48 10^6/uL (4.30-6.10); WHITE BLOOD COUNT 4.5 10^3/uL (4.0-10.0)
[2024-03-15] MEDS: MULTIVITAMINS/MINERALS THERAP 1 TAB PO SCH (08:39)
[2024-03-15] MEDS: FOLIC ACID 1MG TAB PO SCH (08:40)
[2024-03-15] MEDS: ENOXAPARIN 40MG/0.4ML SYRINGE (J1650 PER 10MG) SC SCH (08:41)
[2024-03-15] MEDS: atenoloL 50 MG TAB PO SCH (09:00)
[2024-03-15 09:01] LABS: MAGNESIUM LEVEL 2.3 MG/DL (1.8-2.4)
[2024-03-15 09:02] LABS: BLOOD UREA NITROGEN 14 MG/DL (9-23); CALCIUM LEVEL 8.5 MG/DL (8.3-10.6); CARBON DIOXIDE LEVEL 23 MMOL/L (20-31); CHLORIDE LEVEL 103 MMOL/L (98-107); CREATININE FOR GFR 0.81 MG/DL (0.70-1.30); GLOMERULAR FILTRATION RATE > 60.0 (>42); GLUCOSE, FASTING 98 MG/DL (74-106); SODIUM LEVEL 133 MMOL/L (136-145)
[2024-03-15 09:25] LABS: ERYTHROCYTE SEDIMENTATION RATE 24 mm/hr (0-20)
[2024-03-15 09:31] LABS: C REACTIVE PROTEIN QUANTITATIV 0.7 MG/DL (<1.0)
[2024-03-15] MEDS: ADVAIR HFA 230/21MCG INHALER INH SCH (11:26)
[2024-03-15] MEDS: TIOTROPIUM INHALER/CAPSULE (SPIRIVA) INH SCH (11:26)
[2024-03-15] MEDS: TAMSULOSIN 0.4 MG CAP PO SCH (14:10)
[2024-03-15] MEDS: predniSONE 10MG TAB PO SCH (14:24)
[2024-03-15] MEDS: NS 1,000 ML IV SCH (15:17)
[2024-03-15] MEDS: PERCOCET 5MG/325MG TAB PO PRN (18:39)
[2024-03-16] VITALS (9 sets, daily range): BP systolic 93–163; BP diastolic 59–90; TEMP 97.9–98.7; O2SAT 91–98
[2024-03-16] MEDS: PERCOCET 5MG/325MG TAB PO PRN (01:18)
[2024-03-16 05:43] LABS: LYMPH # 0.5 10^3/uL (1.5-5.0); LYMPH % 6.1 % (24.0-44.0); MEAN CORPUSCULAR HEMOGLOBIN 33.5 pg (27.0-33.0); MEAN CORPUSCULAR HGB CONC 33.2 g/dl (32.0-36.5); MEAN CORPUSCULAR VOLUME 100.8 fl (80.0-96.0); MONO # 0.9 10^3/uL (0.0-0.8); MONO % 11.2 % (2.0-8.0); NEUTROPHILS # 6.5 10^3/uL (1.5-8.5); NEUTROPHILS % 82.3 % (36.0-66.0); PLATELET COUNT, AUTOMATED 150 10^3/uL (150-450); RED BLOOD COUNT 3.61 10^6/uL (4.30-6.10); WHITE BLOOD COUNT 7.9 10^3/uL (4.0-10.0)
[2024-03-16 05:55] LABS: HEMATOCRIT 36.4 % (42.0-52.0); HEMOGLOBIN 12.1 g/dl (13.5-17.5)
[2024-03-16 06:08] LABS: BLOOD UREA NITROGEN 25 MG/DL (9-23); CALCIUM LEVEL 8.1 MG/DL (8.3-10.6); CARBON DIOXIDE LEVEL 23 MMOL/L (20-31); CHLORIDE LEVEL 104 MMOL/L (98-107); CREATININE FOR GFR 0.88 MG/DL (0.70-1.30); GLOMERULAR FILTRATION RATE > 60.0 (>42); GLUCOSE, FASTING 163 MG/DL (74-106); POTASSIUM SERUM 3.8 MMOL/L (3.5-5.1); SODIUM LEVEL 133 MMOL/L (136-145)
[2024-03-16] MEDS: SENOKOT S TAB PO SCH (09:00)
[2024-03-16] MEDS ORDERED: MOM 30ML SUSPENSION UDC PO PRN (09:55)
[2024-03-16] MEDS ORDERED: MIRALAX *UNIT DOSE* 17GM PACKET PO PRN (09:55)
[2024-03-16] MEDS: LevoFLOXacin 750 MG TABLET PO SCH (15:34)
[2024-03-16] MEDS: MAALOX 30 ML SUSP *UDC PO PRN (17:48)
[2024-03-17] VITALS (11 sets, daily range): BP systolic 96–147; BP diastolic 63–93; TEMP 98.1–98.4; O2SAT 92–95
[2024-03-17 05:56] LABS: BASO % 0.1 % (0.0-1.0); EOS % 0.1 % (0.0-3.0); HEMATOCRIT 34.8 % (42.0-52.0); HEMOGLOBIN 11.4 g/dl (13.5-17.5); LYMPH # 1.1 10^3/uL (1.5-5.0); LYMPH % 12.8 % (24.0-44.0); MEAN CORPUSCULAR HEMOGLOBIN 33.2 pg (27.0-33.0); MEAN CORPUSCULAR HGB CONC 32.8 g/dl (32.0-36.5); MEAN CORPUSCULAR VOLUME 101.5 fl (80.0-96.0); MONO # 1.2 10^3/uL (0.0-0.8); MONO % 13.2 % (2.0-8.0); NEUTROPHILS # 6.6 10^3/uL (1.5-8.5); NEUTROPHILS % 73.2 % (36.0-66.0); PLATELET COUNT, AUTOMATED 156 10^3/uL (150-450); RED BLOOD COUNT 3.43 10^6/uL (4.30-6.10); WHITE BLOOD COUNT 8.9 10^3/uL (4.0-10.0)
[2024-03-17 06:30] LABS: ALBUMIN 2.7 G/DL (3.2-5.2); ALKALINE PHOSPHATASE 79 U/L (46-116); ALT/SGPT 28 U/L (7.0-40); AST/SGOT 8 U/L (<34); BILIRUBIN,DIRECT 0.2 MG/DL (<0.4); BILIRUBIN,TOTAL 0.5 MG/DL (0.3-1.2); BLOOD UREA NITROGEN 13 MG/DL (9-23); CALCIUM LEVEL 8.1 MG/DL (8.3-10.6); CARBON DIOXIDE LEVEL 27 MMOL/L (20-31); CHLORIDE LEVEL 107 MMOL/L (98-107); GLOMERULAR FILTRATION RATE > 60.0 (>42); GLUCOSE, FASTING 90 MG/DL (74-106); MAGNESIUM LEVEL 2.1 MG/DL (1.8-2.4); POTASSIUM SERUM 3.4 MMOL/L (3.5-5.1); SODIUM LEVEL 137 MMOL/L (136-145); TOTAL PROTEIN 5.1 G/DL (5.7-8.2)
[2024-03-17] MEDS: POTASSIUM CHLORIDE 10MEQ SR TABLET PO ONE (08:11)
[2024-03-17] MEDS ORDERED: ACETAMINOPHEN TAB 650MG DOSE (2X325MG) PO PRN (08:35)
[2024-03-17] MEDS ORDERED: HYDROMORPHONE HCL 0.5 MG/ 0.5 ML SYRINGE IV PRN (08:35)
[2024-03-17] MEDS: HYDROMORPHONE HCL 0.5 MG/ 0.5 ML SYRINGE IV PRN (10:46)
[2024-03-17] MEDS: NS 1,000 ML IV SCH (10:46)
[2024-03-18] VITALS (10 sets, daily range): BP systolic 106–154; BP diastolic 72–89; TEMP 98.1–98.3; O2SAT 91–98
[2024-03-18 05:53] LABS: BASO % 0.1 % (0.0-1.0); EOS % 0.1 % (0.0-3.0); HEMATOCRIT 36.9 % (42.0-52.0); HEMOGLOBIN 11.8 g/dl (13.5-17.5); LYMPH # 1.3 10^3/uL (1.5-5.0); LYMPH % 18.6 % (24.0-44.0); MEAN CORPUSCULAR VOLUME 103.1 fl (80.0-96.0); MONO # 1.1 10^3/uL (0.0-0.8); MONO % 15.2 % (2.0-8.0); NEUTROPHILS # 4.5 10^3/uL (1.5-8.5); NEUTROPHILS % 65.7 % (36.0-66.0); PLATELET COUNT, AUTOMATED 162 10^3/uL (150-450); RED BLOOD COUNT 3.58 10^6/uL (4.30-6.10); WHITE BLOOD COUNT 6.9 10^3/uL (4.0-10.0)
[2024-03-18 06:15] LABS: ALBUMIN 2.7 G/DL (3.2-5.2); ALKALINE PHOSPHATASE 85 U/L (46-116); ALT/SGPT 26 U/L (7.0-40); AST/SGOT 11 U/L (<34); BILIRUBIN,DIRECT 0.2 MG/DL (<0.4); BILIRUBIN,TOTAL 0.4 MG/DL (0.3-1.2); BLOOD UREA NITROGEN 11 MG/DL (9-23); CALCIUM LEVEL 7.6 MG/DL (8.3-10.6); CARBON DIOXIDE LEVEL 27 MMOL/L (20-31); CHLORIDE LEVEL 107 MMOL/L (98-107); CREATININE FOR GFR 0.71 MG/DL (0.70-1.30); GLOMERULAR FILTRATION RATE > 60.0 (>42); GLUCOSE, FASTING 92 MG/DL (74-106); SODIUM LEVEL 136 MMOL/L (136-145)
[2024-03-18] MEDS ORDERED: SENOKOT S TAB PO PRN (08:20)
[2024-03-18] MEDS: oxyCODONE 10 MG CR TAB PO SCH (09:07)
[2024-03-18] MEDS: CALCIUM CARBONATE 500 MG CHEW U/D PO PRN (22:58)
[2024-03-19] VITALS (9 sets, daily range): BP systolic 104–156; BP diastolic 62–86; TEMP 97.9–98.1; O2SAT 93–96
[2024-03-19 06:01] LABS: EOS % 0.5 % (0.0-3.0); HEMATOCRIT 37.3 % (42.0-52.0); HEMOGLOBIN 12.3 g/dl (13.5-17.5); LYMPH # 1.4 10^3/uL (1.5-5.0); LYMPH % 24.6 % (24.0-44.0); MEAN CORPUSCULAR HEMOGLOBIN 34.1 pg (27.0-33.0); MEAN CORPUSCULAR VOLUME 103.3 fl (80.0-96.0); MONO # 0.9 10^3/uL (0.0-0.8); MONO % 15.5 % (2.0-8.0); NEUTROPHILS # 3.3 10^3/uL (1.5-8.5); NEUTROPHILS % 59.2 % (36.0-66.0); PLATELET COUNT, AUTOMATED 170 10^3/uL (150-450); RED BLOOD COUNT 3.61 10^6/uL (4.30-6.10); WHITE BLOOD COUNT 5.5 10^3/uL (4.0-10.0)
[2024-03-19 06:20] LABS: ALBUMIN 2.8 G/DL (3.2-5.2); ALKALINE PHOSPHATASE 92 U/L (46-116); ALT/SGPT 33 U/L (7.0-40); AST/SGOT 19 U/L (<34); BILIRUBIN,DIRECT 0.2 MG/DL (<0.4); BILIRUBIN,TOTAL 0.4 MG/DL (0.3-1.2); BLOOD UREA NITROGEN 9 MG/DL (9-23); CALCIUM LEVEL 7.7 MG/DL (8.3-10.6); CARBON DIOXIDE LEVEL 28 MMOL/L (20-31); CHLORIDE LEVEL 106 MMOL/L (98-107); CREATININE FOR GFR 0.73 MG/DL (0.70-1.30); GLOMERULAR FILTRATION RATE > 60.0 (>42); GLUCOSE, FASTING 97 MG/DL (74-106); MAGNESIUM LEVEL 2.2 MG/DL (1.8-2.4); POTASSIUM SERUM 3.5 MMOL/L (3.5-5.1); SODIUM LEVEL 137 MMOL/L (136-145)
[2024-03-19] MEDS: SENOKOT S TAB PO SCH (08:59)
[2024-03-19] MEDS: oxyCODONE 20MG CR TAB PO SCH (09:01)
[2024-03-19] MEDS ORDERED: oxyCODONE 5MG TAB PO PRN (12:45)
[2024-03-20] VITALS: BP 132/83; TEMP 98.1; O2SAT 94
[2024-03-20] MEDS: oxyCODONE 5MG TAB PO PRN (02:48)
[2024-03-20 04:00] VITALS: BP 135/83; TEMP 98.1; O2SAT 96
[2024-03-20 05:49] LABS: EOS # 0.1 10^3/uL (0.0-0.5); EOS % 1.1 % (0.0-3.0); HEMATOCRIT 37.8 % (42.0-52.0); HEMOGLOBIN 12.1 g/dl (13.5-17.5); LYMPH # 1.6 10^3/uL (1.5-5.0); LYMPH % 20.3 % (24.0-44.0); MEAN CORPUSCULAR HEMOGLOBIN 33.3 pg (27.0-33.0); MEAN CORPUSCULAR VOLUME 104.1 fl (80.0-96.0); MONO # 1.2 10^3/uL (0.0-0.8); MONO % 15.4 % (2.0-8.0); NEUTROPHILS % 62.7 % (36.0-66.0); PLATELET COUNT, AUTOMATED 191 10^3/uL (150-450); RED BLOOD COUNT 3.63 10^6/uL (4.30-6.10); WHITE BLOOD COUNT 7.9 10^3/uL (4.0-10.0)
[2024-03-20 06:18] LABS: ALBUMIN 2.9 G/DL (3.2-5.2); ALKALINE PHOSPHATASE 98 U/L (46-116); ALT/SGPT 35 U/L (7.0-40); AST/SGOT 19 U/L (<34); BILIRUBIN,DIRECT 0.2 MG/DL (<0.4); BILIRUBIN,TOTAL 0.5 MG/DL (0.3-1.2); BLOOD UREA NITROGEN 10 MG/DL (9-23); CALCIUM LEVEL 7.7 MG/DL (8.3-10.6); CARBON DIOXIDE LEVEL 28 MMOL/L (20-31); CHLORIDE LEVEL 105 MMOL/L (98-107); CREATININE FOR GFR 0.74 MG/DL (0.70-1.30); GLOMERULAR FILTRATION RATE > 60.0 (>42); GLUCOSE, FASTING 97 MG/DL (74-106); MAGNESIUM LEVEL 1.9 MG/DL (1.8-2.4); POTASSIUM SERUM 3.2 MMOL/L (3.5-5.1); SODIUM LEVEL 137 MMOL/L (136-145); TOTAL PROTEIN 5.4 G/DL (5.7-8.2)
[2024-03-20 08:00] VITALS: BP 162/96; TEMP 98.2; O2SAT 95
[2024-03-20] MEDS: predniSONE 20 MG TAB PO SCH (08:19)
[2024-03-20] MEDS: POTASSIUM CHLORIDE 10MEQ SR TABLET PO ONE (08:20)
[2024-03-20] MEDS: LACTULOSE 20GM/30ML SYRUP UDC PO SCH (11:57)
[2024-03-20 12:00] VITALS: BP 145/94; TEMP 98.2; O2SAT 94
[2024-03-20 16:00] VITALS: BP 138/96; TEMP 97.9; O2SAT 90
[2024-03-20 20:03] VITALS: BP 115/68; TEMP 98.1; O2SAT 96
[2024-03-21] VITALS: BP 144/86; TEMP 98.1; O2SAT 98
[2024-03-21 04:00] VITALS: BP 147/90; TEMP 98.2; O2SAT 97
[2024-03-21 05:50] LABS: EOS # 0.1 10^3/uL (0.0-0.5); EOS % 1.6 % (0.0-3.0); HEMATOCRIT 36.4 % (42.0-52.0); LYMPH # 1.8 10^3/uL (1.5-5.0); LYMPH % 23.2 % (24.0-44.0); MEAN CORPUSCULAR HEMOGLOBIN 33.5 pg (27.0-33.0); MEAN CORPUSCULAR VOLUME 101.7 fl (80.0-96.0); MONO # 1.3 10^3/uL (0.0-0.8); MONO % 16.6 % (2.0-8.0); NEUTROPHILS # 4.5 10^3/uL (1.5-8.5); NEUTROPHILS % 58.2 % (36.0-66.0); PLATELET COUNT, AUTOMATED 203 10^3/uL (150-450); RED BLOOD COUNT 3.58 10^6/uL (4.30-6.10); WHITE BLOOD COUNT 7.7 10^3/uL (4.0-10.0)
[2024-03-21 06:23] LABS: ALBUMIN 2.8 G/DL (3.2-5.2); ALKALINE PHOSPHATASE 87 U/L (46-116); ALT/SGPT 36 U/L (7.0-40); AST/SGOT 18 U/L (<34); BILIRUBIN,DIRECT 0.2 MG/DL (<0.4); BILIRUBIN,TOTAL 0.5 MG/DL (0.3-1.2); BLOOD UREA NITROGEN 8 MG/DL (9-23); CALCIUM LEVEL 7.9 MG/DL (8.3-10.6); CARBON DIOXIDE LEVEL 28 MMOL/L (20-31); CHLORIDE LEVEL 104 MMOL/L (98-107); CREATININE FOR GFR 0.74 MG/DL (0.70-1.30); GLOMERULAR FILTRATION RATE > 60.0 (>42); GLUCOSE, FASTING 89 MG/DL (74-106); POTASSIUM SERUM 3.4 MMOL/L (3.5-5.1); SODIUM LEVEL 135 MMOL/L (136-145)
[2024-03-21 08:01] VITALS: BP 154/86; TEMP 98.1; O2SAT 96
[2024-03-21] MEDS ORDERED: LACT20EL PO (08:20)
[2024-03-21] MEDS ORDERED: THERTAB52 PO (08:20)
[2024-03-21] MEDS ORDERED: LEVO1TAB40 PO (08:20)
[2024-03-21] MEDS ORDERED: FOLI1TAB11 PO (08:20)
[2024-03-21] MEDS ORDERED: OXYC20TA40 PO (08:20)
[2024-03-21] MEDS ORDERED: OXYC-517 PO (08:20)
[2024-03-21 09:31] VITALS: BP 132/68
[2024-03-21] MEDS: POTASSIUM CHLORIDE 10MEQ SR TABLET PO ONE (09:31)
[2024-03-21] MEDS ORDERED: OXYC-673 PO (10:06)
== END 2024-03-21 12:29 | disposition home health service (06) | DRG 183 ==
LOC: M ED 17:43 → EDBD 17:43 → M ED INP 21:23 → M MSPAV 03-15 10:35
PROVIDERS: ADMIT Student in an Organized Health Care Education/Training Program; ATTEND Internal Medicine
DX: S22.42XA Multiple fractures of ribs, left side, initial encounter for closed fracture (principal); J18.9 Pneumonia, unspecified organism; E87.1 Hypo-osmolality and hyponatremia; J44.1 Chronic obstructive pulmonary disease with (acute) exacerbation; R55 Syncope and collapse; I10 Essential (primary) hypertension; I27.20 Pulmonary hypertension, unspecified; I25.10 Atherosclerotic heart disease of native coronary artery without angina pectoris; F10.20 Alcohol dependence, uncomplicated; E87.6 Hypokalemia; F17.210 Nicotine dependence, cigarettes, uncomplicated; N40.0 Benign prostatic hyperplasia without lower urinary tract symptoms; K59.00 Constipation, unspecified; Z79.899 Other long term (current) drug therapy; Z66 Do not resuscitate; W18.30XA Fall on same level, unspecified, initial encounter; Y92.009 Unspecified place in unspecified non-institutional (private) residence as the place of occurrence of the external cause

== ENCOUNTER 2024-09-28 08:33 | Inpatient (IN) | payer MEDICARE, MEDICAID ==
[~2024-09-28] VITALS: Ht 162.6 cm; Wt 46.7 kg
[2024-09-28] VITALS (7 sets, daily range): BP systolic 140–184; BP diastolic 69–94; TEMP 97.2–98.9; O2SAT 97–98
[~2024-09-28 08:33] MED LIST changes: +BUDE90AE INH; -DOXY-323 PO; +DOXY-441 PO; +FLUT1BLS5 INH; -FLUT1BLS5 PO; +LACT20EL PO; +LEVO1TAB40 PO; +OXYC-517 PO; +OXYC-673 PO; +OXYC20TA40 PO; -PULM90IN INH; +THERTAB52 PO
[2024-09-28] MEDS: IPRATROPIUM 0.5MG/ALBUTEROL 2.5MG INH SOL UD 3ML (DUONEB) NEB PRN (08:59)
[2024-09-28 09:14] LABS: VENOUS BASE EXCESS -1.3 (-2.0-2.0); VENOUS HCO3 22.6 MMOL/L (23.0-27.0); VENOUS O2 SATURATION 73.6 % (60.0-80.0); VENOUS PARTIAL PRESSURE CO2 36.1 mmHg (38.0-50.0); VENOUS PARTIAL PRESSURE O2 40.9 mmHg (30.0-50.0); VENOUS PH 7.415 UNITS (7.330-7.430); VENOUS STANDARD HCO3 22.7 MMOL/L; VENOUS TOTAL CO2 23.7 MMOL/L (24.0-28.0)
[2024-09-28] MEDS: methylPREDNISolone 125MG 2ML VIAL IV ONE (09:15)
[2024-09-28 09:21] LABS: BASO % 0.7 % (0.0-1.0); EOS % 0.2 % (0.0-3.0); HEMATOCRIT 44.5 % (42.0-52.0); HEMOGLOBIN 15.2 g/dl (13.5-17.5); LYMPH # 0.5 10^3/uL (1.5-5.0); LYMPH % 12.4 % (24.0-44.0); MEAN CORPUSCULAR HGB CONC 34.2 g/dl (32.0-36.5); MEAN CORPUSCULAR VOLUME 99.6 fl (80.0-96.0); MONO # 0.4 10^3/uL (0.0-0.8); NEUTROPHILS # 3.3 10^3/uL (1.5-8.5); NEUTROPHILS % 76.2 % (36.0-66.0); RED BLOOD COUNT 4.47 10^6/uL (4.30-6.10); WHITE BLOOD COUNT 4.3 10^3/uL (4.0-10.0)
[2024-09-28 09:52] LABS: PLATELET COUNT, AUTOMATED 149 10^3/uL (150-450)
[2024-09-28 11:01] LABS: THYROID STIMULATING HORMONE 1.032 uIU/ML (0.55-4.78)
[2024-09-28 11:21] LABS: ALBUMIN 3.3 G/DL (3.2-5.2); ALKALINE PHOSPHATASE 97 U/L (40-129); ALT/SGPT 68 U/L (7.0-40); AST/SGOT 46 U/L (<34); BILIRUBIN,DIRECT 0.5 MG/DL (<0.4); BILIRUBIN,TOTAL 0.9 MG/DL (0.3-1.2); BLOOD UREA NITROGEN 7 MG/DL (9-23); CALCIUM LEVEL 8.5 MG/DL (8.3-10.6); CARBON DIOXIDE LEVEL 21 MMOL/L (20-31); CHLORIDE LEVEL 103 MMOL/L (98-107); CREATININE FOR GFR 0.68 MG/DL (0.70-1.30); GLOMERULAR FILTRATION RATE > 60.0 (>42); GLUCOSE, FASTING 103 MG/DL (74-106); POTASSIUM SERUM 3.9 MMOL/L (3.5-5.1); SODIUM LEVEL 136 MMOL/L (136-145); TOTAL PROTEIN 6.4 G/DL (5.7-8.2)
[2024-09-28] MEDS ORDERED: ISOVUE-370 76% 100ML VIAL As Ordered ONE (11:29)
[2024-09-28] MEDS: NS (Normal Saline) 0.9% 1,370 ML in IV 1 EA IV ONE (12:36)
[2024-09-28] MEDS: cefTRIAXone SOD 2 GM in DEXTROSE 5% (D5W) ADV/MINI-BAG 50 ML IV ONE (12:39)
[2024-09-28] MEDS ORDERED: HOME MED LIST COMPLETE! XX SCH (13:20)
[2024-09-28] MEDS: IPRATROPIUM 0.5MG/ALBUTEROL 2.5MG INH SOL UD 3ML (DUONEB) NEB ONE (14:17)
[2024-09-28 14:46] LABS: AMPHETAMINES LEVEL URINE NEGATIVE (NEGATIVE); BARBITURATES URINE NEGATIVE (NEGATIVE); BENZODIAZEPINES URINE NEGATIVE (NEGATIVE); CANNABINOIDS URINE NEGATIVE (NEGATIVE); COCAINE METABOLITE URINE NEGATIVE (NEGATIVE); METHADONE URINE NEGATIVE (NEGATIVE); OPIATES URINE NEGATIVE (NEGATIVE); PHENCYCLIDINE URINE NEGATIVE (NEGATIVE)
[2024-09-28 14:47] LABS: ETHYL ALCOHOL (ETHANOL) 0.003 % (0.000-0.010)
[2024-09-28] MEDS ORDERED: AZITHROMYCIN INJ 500 MG, VIAL MATE ADAPTER 1 EACH in NS 250 ML IV SCH (14:55)
[2024-09-28] MEDS ORDERED: MOM 30ML SUSPENSION UDC PO PRN (14:55)
[2024-09-28] MEDS ORDERED: MAALOX 30 ML SUSP *UDC PO PRN (14:55)
[2024-09-28] MEDS ORDERED: IPRATROPIUM 0.5MG/ALBUTEROL 2.5MG INH SOL UD 3ML (DUONEB) NEB PRN (15:20)
[2024-09-28] MEDS ORDERED: LORazepam 2 MG TAB PO PRN (15:30)
[2024-09-28 15:35] LABS: MAGNESIUM LEVEL 1.8 MG/DL (1.8-2.4); PHOSPHORUS LEVEL 2.4 MG/DL (2.4-5.1)
[2024-09-28 15:47] LABS: PROCALCITONIN 0.07 ng/ml
[2024-09-28] MEDS: NS 0.9% IV SCH (16:28)
[2024-09-28] MEDS: methylPREDNISolone 40MG 1ML VIAL IV SCH (16:28)
[2024-09-28] MEDS: [UNRECOGNIZED DRUG - OTHER] IV SCH (16:28)
[2024-09-28] MEDS: FOLIC ACID 1MG TAB PO SCH (16:29)
[2024-09-28] MEDS: MULTIVITAMINS/MINERALS THERAP 1 TAB PO SCH (16:29)
[2024-09-28] MEDS: THIAMINE 100 MG TAB PO SCH (16:30)
[2024-09-28] MEDS: PANTOPRAZOLE 40MG TAB (PROTONIX) PO SCH (16:30)
[2024-09-28] MEDS: atenoloL 50 MG TAB PO SCH (16:30)
[2024-09-28 16:40] LABS: HEPATITIS B SURFACE ANTIGEN NEGATIVE (NEGATIVE)
[2024-09-28 17:00] LABS: HEPATITIS B CORE ANTIBODY IGM NEGATIVE (NEGATIVE); HEPATITIS C VIRUS ABY INDEX 0.03 INDEX (<0.8)
[2024-09-28] MEDS: LevoFLOXacin 750 MG TABLET PO SCH (18:24)
[2024-09-28] MEDS: ADVAIR HFA 230/21MCG INHALER INH SCH (20:14)
[2024-09-28] MEDS: IPRATROPIUM 0.5MG/ALBUTEROL 2.5MG INH SOL UD 3ML (DUONEB) NEB SCH (20:14)
[2024-09-28] MEDS: amLODIPine 5 MG TAB PO ONE (20:43)
[2024-09-28] MEDS: guaiFENesin ER TABLET 600 MG TAB PO SCH (20:43)
[2024-09-29] VITALS (9 sets, daily range): BP systolic 115–143; BP diastolic 61–78; TEMP 97.6–98.4; O2SAT 94–97
[2024-09-29 05:31] LABS: EOS % 0.6 % (0.0-3.0); HEMATOCRIT 41.5 % (42.0-52.0); HEMOGLOBIN 14.4 g/dl (13.5-17.5); LYMPH # 0.5 10^3/uL (1.5-5.0); LYMPH % 6.7 % (24.0-44.0); MEAN CORPUSCULAR HGB CONC 34.7 g/dl (32.0-36.5); MEAN CORPUSCULAR VOLUME 97.9 fl (80.0-96.0); MONO # 0.4 10^3/uL (0.0-0.8); MONO % 5.1 % (2.0-8.0); NEUTROPHILS % 87.2 % (36.0-66.0); PLATELET COUNT, AUTOMATED 153 10^3/uL (150-450); RED BLOOD COUNT 4.24 10^6/uL (4.30-6.10); WHITE BLOOD COUNT 6.9 10^3/uL (4.0-10.0)
[2024-09-29 05:56] LABS: BLOOD UREA NITROGEN 8 MG/DL (9-23); CALCIUM LEVEL 7.9 MG/DL (8.3-10.6); CARBON DIOXIDE LEVEL 22 MMOL/L (20-31); CHLORIDE LEVEL 102 MMOL/L (98-107); CREATININE FOR GFR 0.69 MG/DL (0.70-1.30); GLOMERULAR FILTRATION RATE > 60.0 (>42); GLUCOSE, FASTING 134 MG/DL (74-106); MAGNESIUM LEVEL 1.7 MG/DL (1.8-2.4); POTASSIUM SERUM 4.3 MMOL/L (3.5-5.1); SODIUM LEVEL 136 MMOL/L (136-145)
[2024-09-29] MEDS: MAG SULF 1GM/100ML (MAG RUN) 1 GM in IV 1 EA IV SCH (07:33)
[2024-09-29] MEDS ORDERED: predniSONE 20 MG TAB PO SCH (09:00)
[2024-09-29] MEDS: ENOXAPARIN 40MG/0.4ML SYRINGE (J1650 PER 10MG) SC SCH (09:28)
[2024-09-29] MEDS: TAMSULOSIN 0.4 MG CAP PO SCH (09:28)
[2024-09-29] MEDS ORDERED: hydrOXYzine 50 MG TAB PO PRN (13:15)
[2024-09-30] VITALS (8 sets, daily range): BP systolic 122–137; BP diastolic 65–76; TEMP 97.8–98.8; O2SAT 96–98
[2024-09-30 05:38] LABS: EOS # 0.1 10^3/uL (0.0-0.5); EOS % 2.1 % (0.0-3.0); HEMATOCRIT 39.7 % (42.0-52.0); HEMOGLOBIN 13.6 g/dl (13.5-17.5); LYMPH # 0.4 10^3/uL (1.5-5.0); LYMPH % 6.6 % (24.0-44.0); MEAN CORPUSCULAR HEMOGLOBIN 33.7 pg (27.0-33.0); MEAN CORPUSCULAR HGB CONC 34.3 g/dl (32.0-36.5); MEAN CORPUSCULAR VOLUME 98.3 fl (80.0-96.0); MONO # 0.4 10^3/uL (0.0-0.8); MONO % 6.4 % (2.0-8.0); NEUTROPHILS # 5.1 10^3/uL (1.5-8.5); NEUTROPHILS % 84.4 % (36.0-66.0); PLATELET COUNT, AUTOMATED 175 10^3/uL (150-450); RED BLOOD COUNT 4.04 10^6/uL (4.30-6.10); WHITE BLOOD COUNT 6.1 10^3/uL (4.0-10.0)
[2024-09-30 06:12] LABS: ALKALINE PHOSPHATASE 75 U/L (40-129); ALT/SGPT 103 U/L (7.0-40); AST/SGOT 71 U/L (<34); BILIRUBIN,DIRECT 0.3 MG/DL (<0.4); BILIRUBIN,TOTAL 0.7 MG/DL (0.3-1.2); BLOOD UREA NITROGEN 11 MG/DL (9-23); CALCIUM LEVEL 8.1 MG/DL (8.3-10.6); CARBON DIOXIDE LEVEL 24 MMOL/L (20-31); CHLORIDE LEVEL 106 MMOL/L (98-107); CREATININE FOR GFR 0.83 MG/DL (0.70-1.30); GLOMERULAR FILTRATION RATE > 60.0 (>42); GLUCOSE, FASTING 129 MG/DL (74-106); MAGNESIUM LEVEL 2.2 MG/DL (1.8-2.4); POTASSIUM SERUM 3.3 MMOL/L (3.5-5.1); SODIUM LEVEL 138 MMOL/L (136-145); TOTAL PROTEIN 5.7 G/DL (5.7-8.2)
[2024-09-30] MEDS: POTASSIUM CHLORIDE 10MEQ SR TABLET PO ONE (08:19)
[2024-10-01 04:13] VITALS: BP 152/76; TEMP 98.1; O2SAT 97
[2024-10-01 06:42] LABS: HEMATOCRIT 39.6 % (42.0-52.0); HEMOGLOBIN 13.4 g/dl (13.5-17.5); LYMPH # 0.5 10^3/uL (1.5-5.0); LYMPH % 9.4 % (24.0-44.0); MEAN CORPUSCULAR HGB CONC 33.8 g/dl (32.0-36.5); MEAN CORPUSCULAR VOLUME 100.5 fl (80.0-96.0); MONO # 0.4 10^3/uL (0.0-0.8); MONO % 8.2 % (2.0-8.0); NEUTROPHILS # 4.1 10^3/uL (1.5-8.5); NEUTROPHILS % 81.8 % (36.0-66.0); PLATELET COUNT, AUTOMATED 165 10^3/uL (150-450); RED BLOOD COUNT 3.94 10^6/uL (4.30-6.10)
[2024-10-01 06:58] LABS: BLOOD UREA NITROGEN 11 MG/DL (9-23); CARBON DIOXIDE LEVEL 21 MMOL/L (20-31); CHLORIDE LEVEL 104 MMOL/L (98-107); CREATININE FOR GFR 0.74 MG/DL (0.70-1.30); GLOMERULAR FILTRATION RATE > 60.0 (>42); GLUCOSE, FASTING 135 MG/DL (74-106); MAGNESIUM LEVEL 1.9 MG/DL (1.8-2.4); POTASSIUM SERUM 3.2 MMOL/L (3.5-5.1); SODIUM LEVEL 137 MMOL/L (136-145)
[2024-10-01 07:54] VITALS: BP 177/73; TEMP 98.4; O2SAT 100
[2024-10-01] MEDS: POTASSIUM CHLORIDE 10MEQ SR TABLET PO ONE (08:24)
[2024-10-01] MEDS: ACETAMINOPHEN 325 MG TAB PO PRN (08:31)
[2024-10-01] MEDS: TIOTROPIUM INHALER/CAPSULE (SPIRIVA) INH SCH (09:16)
[2024-10-01 12:00] VITALS: BP 137/77; TEMP 98.5; O2SAT 97
[2024-10-01] MEDS ORDERED: atenoloL 50 MG TAB PO SCH (14:15)
[2024-10-01 16:23] VITALS: BP 141/73; TEMP 98.4; O2SAT 97
[2024-10-01 20:28] VITALS: BP 153/74; TEMP 98.1; O2SAT 93
[2024-10-01] MEDS: atenoloL 50 MG TAB PO SCH (20:39)
[2024-10-02] VITALS (8 sets, daily range): BP systolic 110–173; BP diastolic 63–98; TEMP 97.6–98.8; O2SAT 95–98
[2024-10-02 06:53] LABS: EOS % 0.2 % (0.0-3.0); HEMATOCRIT 39.7 % (42.0-52.0); HEMOGLOBIN 13.4 g/dl (13.5-17.5); LYMPH # 0.5 10^3/uL (1.5-5.0); LYMPH % 12.4 % (24.0-44.0); MEAN CORPUSCULAR HEMOGLOBIN 34.1 pg (27.0-33.0); MEAN CORPUSCULAR HGB CONC 33.8 g/dl (32.0-36.5); MONO # 0.4 10^3/uL (0.0-0.8); MONO % 9.3 % (2.0-8.0); NEUTROPHILS # 3.3 10^3/uL (1.5-8.5); NEUTROPHILS % 77.6 % (36.0-66.0); PLATELET COUNT, AUTOMATED 153 10^3/uL (150-450); RED BLOOD COUNT 3.93 10^6/uL (4.30-6.10); WHITE BLOOD COUNT 4.2 10^3/uL (4.0-10.0)
[2024-10-02 07:21] LABS: ALBUMIN 2.8 G/DL (3.2-5.2); ALKALINE PHOSPHATASE 66 U/L (40-129); ALT/SGPT 88 U/L (7.0-40); AST/SGOT 27 U/L (<34); BILIRUBIN,TOTAL 1.1 MG/DL (0.3-1.2); BLOOD UREA NITROGEN 10 MG/DL (9-23); CALCIUM LEVEL 7.8 MG/DL (8.3-10.6); CARBON DIOXIDE LEVEL 27 MMOL/L (20-31); CHLORIDE LEVEL 104 MMOL/L (98-107); CREATININE FOR GFR 0.67 MG/DL (0.70-1.30); GLOMERULAR FILTRATION RATE > 60.0 (>42); GLUCOSE, FASTING 113 MG/DL (74-106); MAGNESIUM LEVEL 1.9 MG/DL (1.8-2.4); POTASSIUM SERUM 3.9 MMOL/L (3.5-5.1); SODIUM LEVEL 138 MMOL/L (136-145); TOTAL PROTEIN 5.5 G/DL (5.7-8.2)
[2024-10-02] MEDS: MAGNESIUM OXIDE 400MG TAB (MAG-OX) PO SCH (08:42)
[2024-10-02] MEDS: BUDESONIDE 0.5 MG/2 ML INHALATION SUSPENSION NEB SCH (19:57)
[2024-10-02] MEDS: FORMOTEROL FUMARATE 20 MCG/2 ML INHALATION SOLUTION (PERFOROMIST) NEB SCH (19:57)
[2024-10-02] MEDS: methylPREDNISolone 40MG 1ML VIAL IV SCH (20:44)
[2024-10-03 04:46] VITALS: BP 139/81; TEMP 97.1; O2SAT 96
[2024-10-03 05:38] LABS: HEMATOCRIT 39.4 % (42.0-52.0); HEMOGLOBIN 13.1 g/dl (13.5-17.5); LYMPH # 0.5 10^3/uL (1.5-5.0); LYMPH % 10.6 % (24.0-44.0); MEAN CORPUSCULAR HEMOGLOBIN 33.4 pg (27.0-33.0); MEAN CORPUSCULAR HGB CONC 33.2 g/dl (32.0-36.5); MEAN CORPUSCULAR VOLUME 100.5 fl (80.0-96.0); MONO # 0.6 10^3/uL (0.0-0.8); MONO % 14.3 % (2.0-8.0); NEUTROPHILS # 3.2 10^3/uL (1.5-8.5); NEUTROPHILS % 74.6 % (36.0-66.0); PLATELET COUNT, AUTOMATED 153 10^3/uL (150-450); RED BLOOD COUNT 3.92 10^6/uL (4.30-6.10); WHITE BLOOD COUNT 4.3 10^3/uL (4.0-10.0)
[2024-10-03 05:58] LABS: ALBUMIN 2.8 G/DL (3.2-5.2); ALKALINE PHOSPHATASE 83 U/L (40-129); ALT/SGPT 65 U/L (7.0-40); AST/SGOT 17 U/L (<34); BILIRUBIN,TOTAL 0.6 MG/DL (0.3-1.2); BLOOD UREA NITROGEN 11 MG/DL (9-23); CALCIUM LEVEL 7.7 MG/DL (8.3-10.6); CARBON DIOXIDE LEVEL 26 MMOL/L (20-31); CHLORIDE LEVEL 105 MMOL/L (98-107); CREATININE FOR GFR 0.75 MG/DL (0.70-1.30); GLOMERULAR FILTRATION RATE > 60.0 (>42); GLUCOSE, FASTING 118 MG/DL (74-106); POTASSIUM SERUM 3.5 MMOL/L (3.5-5.1); SODIUM LEVEL 138 MMOL/L (136-145); TOTAL PROTEIN 5.3 G/DL (5.7-8.2)
[2024-10-03 08:05] VITALS: TEMP 98.3
[2024-10-03 08:45] VITALS: BP 122/71; TEMP 97.9; O2SAT 97
[2024-10-03] MEDS: ADVAIR HFA 230/21MCG INHALER INH SCH (19:49)
[2024-10-04 04:34] VITALS: BP 118/59; TEMP 98.2; O2SAT 98
[2024-10-04 08:00] VITALS: BP 140/71; TEMP 98; O2SAT 98
[2024-10-04 08:14] VITALS: BP 121/54; TEMP 97.1; O2SAT 98
[2024-10-04] MEDS: predniSONE 20 MG TAB PO SCH (08:20)
[2024-10-04 19:54] VITALS: BP 116/62; TEMP 98.2; O2SAT 95
[2024-10-05 06:19] VITALS: BP 139/68; TEMP 98.5; O2SAT 97
[2024-10-05 08:04] VITALS: BP 108/59; TEMP 98.8; O2SAT 96
[2024-10-05 15:21] VITALS: BP 110/57; TEMP 98.8; O2SAT 95
[2024-10-05 17:30] VITALS: BP 116/70; TEMP 99; O2SAT 96
[2024-10-05 21:09] VITALS: BP 120/69; TEMP 98.8; O2SAT 97
[2024-10-06 04:00] VITALS: BP 135/82; TEMP 98.4; O2SAT 99
[2024-10-06 12:00] VITALS: BP 102/64; TEMP 99.1; O2SAT 94
[2024-10-06 19:49] VITALS: BP 124/72; TEMP 99; O2SAT 99
[2024-10-06 20:33] VITALS: BP 126/73; TEMP 99; O2SAT 96
[2024-10-07] MEDS: ONDANSETRON 4MG 2ML VIAL IV ONE (01:32)
[2024-10-07] MEDS: KETOROLAC 30 MG/ML 1ML VIAL IV ONE (03:12)
[2024-10-07 03:35] VITALS: BP 124/74; TEMP 98.8; O2SAT 99
[2024-10-07] MEDS: predniSONE 10MG TAB PO SCH (09:33)
[2024-10-07 12:00] VITALS: BP 123/64; TEMP 98.2; O2SAT 96
[2024-10-07] MEDS: ONDANSETRON 4MG TAB PO PRN (18:29)
[2024-10-07] MEDS ORDERED: ONDANSETRON 4MG 2ML VIAL IV PRN (18:35)
[2024-10-07] MEDS: NS (Normal Saline) 0.9% 1,000 ML IV SCH (18:45)
[2024-10-07 19:40] VITALS: BP 103/65; TEMP 98.8; O2SAT 97
[2024-10-07 21:06] LABS: BLOOD UREA NITROGEN 26 MG/DL (9-23); CALCIUM LEVEL 7.6 MG/DL (8.3-10.6); CARBON DIOXIDE LEVEL 23 MMOL/L (20-31); CHLORIDE LEVEL 110 MMOL/L (98-107); GLOMERULAR FILTRATION RATE > 60.0 (>42); GLUCOSE, FASTING 90 MG/DL (74-106); POTASSIUM SERUM 4.5 MMOL/L (3.5-5.1); SODIUM LEVEL 143 MMOL/L (136-145)
[2024-10-07] MEDS: LOPERAMIDE 2 MG CAPLET PO ONE (23:06)
[2024-10-08 03:43] VITALS: BP 102/68; TEMP 98.2; O2SAT 97
[2024-10-08 08:03] LABS: BASO % 0.1 % (0.0-1.0); EOS # 0.1 10^3/uL (0.0-0.5); EOS % 0.7 % (0.0-3.0); HEMATOCRIT 38.7 % (42.0-52.0); HEMOGLOBIN 12.8 g/dl (13.5-17.5); LYMPH # 1.3 10^3/uL (1.5-5.0); LYMPH % 10.7 % (24.0-44.0); MEAN CORPUSCULAR HEMOGLOBIN 33.9 pg (27.0-33.0); MEAN CORPUSCULAR HGB CONC 33.1 g/dl (32.0-36.5); MEAN CORPUSCULAR VOLUME 102.4 fl (80.0-96.0); MONO # 1.7 10^3/uL (0.0-0.8); MONO % 14.8 % (2.0-8.0); NEUTROPHILS # 8.5 10^3/uL (1.5-8.5); PLATELET COUNT, AUTOMATED 232 10^3/uL (150-450); RED BLOOD COUNT 3.78 10^6/uL (4.30-6.10); WHITE BLOOD COUNT 11.7 10^3/uL (4.0-10.0)
[2024-10-08 08:07] VITALS: BP 103/70
[2024-10-08] MEDS: PANTOPRAZOLE 40MG VIAL IV SCH (08:10)
[2024-10-08] MEDS: LACTOBACILLUS ACIDOPHILUS CAP (BACID) PO SCH (08:10)
[2024-10-08] MEDS: NS (Normal Saline) 0.9% 1,000 ML IV ONE (08:10)
[2024-10-08 08:28] LABS: BLOOD UREA NITROGEN 22 MG/DL (9-23); CALCIUM LEVEL 6.9 MG/DL (8.3-10.6); CARBON DIOXIDE LEVEL 22 MMOL/L (20-31); CHLORIDE LEVEL 107 MMOL/L (98-107); CREATININE FOR GFR 0.74 MG/DL (0.70-1.30); GLOMERULAR FILTRATION RATE > 60.0 (>42); GLUCOSE, FASTING 72 MG/DL (74-106); MAGNESIUM LEVEL 1.8 MG/DL (1.8-2.4); POTASSIUM SERUM 3.8 MMOL/L (3.5-5.1); SODIUM LEVEL 138 MMOL/L (136-145)
[2024-10-08 09:28] LABS: CLOSTRIDIUM DIFFICILE PCR NEGATIVE (NEGATIVE)
[2024-10-08 12:00] VITALS: BP 109/65; TEMP 98.4; O2SAT 95
[2024-10-08] MEDS: LOPERAMIDE 2 MG CAPLET PO PRN (14:09)
[2024-10-08] MEDS ORDERED: CEPACOL LOZENGE PO PRN (22:40)
[2024-10-09 04:14] VITALS: BP 104/65; TEMP 99.9; O2SAT 95
[2024-10-09 06:44] LABS: BLOOD UREA NITROGEN 12 MG/DL (9-23); CALCIUM LEVEL 7.4 MG/DL (8.3-10.6); CARBON DIOXIDE LEVEL 22 MMOL/L (20-31); CHLORIDE LEVEL 108 MMOL/L (98-107); CREATININE FOR GFR 0.68 MG/DL (0.70-1.30); GLOMERULAR FILTRATION RATE > 60.0 (>42); GLUCOSE, FASTING 80 MG/DL (74-106); POTASSIUM SERUM 3.3 MMOL/L (3.5-5.1); SODIUM LEVEL 140 MMOL/L (136-145)
[2024-10-09 09:36] VITALS: BP 125/69
[2024-10-09] MEDS: POTASSIUM CHLORIDE 10MEQ SR TABLET PO ONE (09:37)
[2024-10-09] MEDS ORDERED: RISATAB3 PO ×2 (11:51→14:42)
[2024-10-09] MEDS ORDERED: LOPE2CA PO (11:51)
[2024-10-09 12:00] VITALS: BP 120/66; TEMP 100; O2SAT 95
[2024-10-09] MEDS ORDERED: PRED10TA2 PO (14:42)
[2024-10-09] MEDS ORDERED: LOPE1CAP5 PO (14:42)
[2024-10-10] MEDS ORDERED: predniSONE 20 MG TAB PO SCH (09:00)
[2024-10-10] MEDS ORDERED: MORP1SOL5 PO (12:50)
[2024-10-10] MEDS ORDERED: MUCI600T31 PO (12:50)
[2024-10-10] MEDS ORDERED: ATIV1TAB10 PO (12:50)
[2024-10-10] MEDS ORDERED: HYOS125TA PO (12:50)
[2024-10-13] MEDS ORDERED: predniSONE 10MG TAB PO SCH (09:00)
== END 2024-10-09 12:25 | DRG 190 ==
LOC: M ED 08:33 → EDBD 08:33 → M ED INP 14:53 → M PCU 15:46 → M MS5PR 10-05 17:30
PROVIDERS: ADMIT Internal Medicine; ATTEND Internal Medicine
PROC: B246ZZZ Ultrasonography of Right and Left Heart (ICD-10-PCS; principal; 2024-10-01)
PROC: 0HDRXZZ Extraction of Toe Nail, External Approach (ICD-10-PCS; 2024-10-01)
DX: J44.1 Chronic obstructive pulmonary disease with (acute) exacerbation (principal); J15.69 Pneumonia due to other Gram-negative bacteria; E87.20 Acidosis, unspecified; F17.210 Nicotine dependence, cigarettes, uncomplicated; N40.0 Benign prostatic hyperplasia without lower urinary tract symptoms; I10 Essential (primary) hypertension; Z66 Do not resuscitate; F10.10 Alcohol abuse, uncomplicated; J44.0 Chronic obstructive pulmonary disease with (acute) lower respiratory infection; R00.0 Tachycardia, unspecified; R74.01 Elevation of levels of liver transaminase levels; B35.1 Tinea unguium; R19.7 Diarrhea, unspecified; M20.10 Hallux valgus (acquired), unspecified foot; Z79.899 Other long term (current) drug therapy

== ENCOUNTER 2024-10-09 12:58 | Observation (INO) | payer MEDICARE, MEDICAID ==
[~2024-10-09] VITALS: Ht 162.6 cm; Wt 46.6 kg
[~2024-10-09 12:58] MED LIST changes: +BUPR-670 PO; -BUPR1TAB52 PO; -FLOM0.4C39 PO; +LOPE2CA PO; +RISATAB3 PO; +TAMS-18 PO
[2024-10-09 13:53] LABS: BASO % 0.2 % (0.0-1.0); EOS % 0.1 % (0.0-3.0); HEMOGLOBIN 12.6 g/dl (13.5-17.5); LYMPH # 0.3 10^3/uL (1.5-5.0); LYMPH % 1.7 % (24.0-44.0); MEAN CORPUSCULAR HEMOGLOBIN 34.7 pg (27.0-33.0); MEAN CORPUSCULAR HGB CONC 34.1 g/dl (32.0-36.5); MEAN CORPUSCULAR VOLUME 101.9 fl (80.0-96.0); MONO # 1.5 10^3/uL (0.0-0.8); MONO % 8.4 % (2.0-8.0); NEUTROPHILS # 15.8 10^3/uL (1.5-8.5); PLATELET COUNT, AUTOMATED 234 10^3/uL (150-450); RED BLOOD COUNT 3.63 10^6/uL (4.30-6.10); WHITE BLOOD COUNT 17.7 10^3/uL (4.0-10.0)
[2024-10-09] MEDS ORDERED: RISATAB3 PO (14:42)
[2024-10-09] MEDS ORDERED: PRED10TA2 PO (14:42)
[2024-10-09] MEDS ORDERED: LOPE1CAP5 PO (14:42)
[2024-10-09] MEDS ORDERED: HOME MED LIST COMPLETE! XX SCH (14:45)
[2024-10-09] MEDS ORDERED: IPRATROPIUM 0.5MG/ALBUTEROL 2.5MG INH SOL UD 3ML NEB PRN (15:25)
[2024-10-09] MEDS ORDERED: LOPERAMIDE 2 MG CAPLET PO PRN (15:40)
[2024-10-09] MEDS: LACTOBACILLUS ACIDOPHILUS CAP (BACID) PO SCH (17:59)
[2024-10-09] MEDS: AZITHROMYCIN 250MG TABLET PO SCH (17:59)
[2024-10-09] MEDS: predniSONE 10MG TAB PO SCH (17:59)
[2024-10-09] MEDS: GLYCOPYRROLATE INJ 0.2 MG/ML 2 ML VIAL NEB SCH (20:12)
[2024-10-09] MEDS: IPRATROPIUM 0.5MG/ALBUTEROL 2.5MG INH SOL UD 3ML NEB SCH (20:12)
[2024-10-09] MEDS: FORMOTEROL FUMARATE 20 MCG/2 ML INHALATION SOLUTION (PERFOROMIST) INH SCH (20:12)
[2024-10-09] MEDS: guaiFENesin ER TABLET 600 MG TAB PO SCH (20:28)
[2024-10-09] MEDS ORDERED: ADVAIR HFA 230/21MCG INHALER INH SCH (21:00)
[2024-10-09 21:09] VITALS: BP 111/67; TEMP 98.8; O2SAT 96
[2024-10-10 05:01] VITALS: BP 132/79; TEMP 98.1; O2SAT 94
[2024-10-10 05:51] LABS: BASO % 0.1 % (0.0-1.0); EOS % 0.1 % (0.0-3.0); HEMATOCRIT 35.9 % (42.0-52.0); HEMOGLOBIN 12.1 g/dl (13.5-17.5); LYMPH # 0.4 10^3/uL (1.5-5.0); LYMPH % 2.7 % (24.0-44.0); MEAN CORPUSCULAR HEMOGLOBIN 34.1 pg (27.0-33.0); MEAN CORPUSCULAR HGB CONC 33.7 g/dl (32.0-36.5); MEAN CORPUSCULAR VOLUME 101.1 fl (80.0-96.0); MONO % 6.2 % (2.0-8.0); NEUTROPHILS # 13.9 10^3/uL (1.5-8.5); NEUTROPHILS % 90.3 % (36.0-66.0); PLATELET COUNT, AUTOMATED 221 10^3/uL (150-450); RED BLOOD COUNT 3.55 10^6/uL (4.30-6.10); WHITE BLOOD COUNT 15.4 10^3/uL (4.0-10.0)
[2024-10-10 06:19] LABS: BLOOD UREA NITROGEN 10 MG/DL (9-23); CALCIUM LEVEL 7.3 MG/DL (8.3-10.6); CARBON DIOXIDE LEVEL 24 MMOL/L (20-31); CHLORIDE LEVEL 105 MMOL/L (98-107); CREATININE FOR GFR 0.65 MG/DL (0.70-1.30); GLOMERULAR FILTRATION RATE > 60.0 (>42); GLUCOSE, FASTING 125 MG/DL (74-106); MAGNESIUM LEVEL 1.8 MG/DL (1.8-2.4); POTASSIUM SERUM 3.9 MMOL/L (3.5-5.1); SODIUM LEVEL 137 MMOL/L (136-145)
[2024-10-10] MEDS: TAMSULOSIN 0.4 MG CAP PO SCH (08:16)
[2024-10-10] MEDS: ENOXAPARIN 40MG/0.4ML SYRINGE (J1650 PER 10MG) SC SCH (08:17)
[2024-10-10] MEDS ORDERED: TIOTROPIUM INHALER/CAPSULE (SPIRIVA) INH SCH (09:00)
[2024-10-10] MEDS ORDERED: atenoloL 50 MG TAB PO SCH (09:00)
[2024-10-10] MEDS: ACETAMINOPHEN 325 MG TAB PO PRN (09:04)
[2024-10-10] MEDS ORDERED: HYOSCYAMINE SULFATE 0.125 MG SUBL TABLET PO PRN (10:35)
[2024-10-10] MEDS ORDERED: ONDANSETRON 4MG ORAL DISINTEGRATING TAB PO PRN (10:35)
[2024-10-10] MEDS ORDERED: ATROPINE SULFATE 1% OPHTH SOLN 2ML BTL SL PRN (10:35)
[2024-10-10] MEDS ORDERED: MORPHINE 10MG/0.5ML ORAL CONCENTRATE SOLUTION U/D SL PRN (10:35)
[2024-10-10] MEDS ORDERED: LORazepam 1 MG TAB PO PRN (10:35)
[2024-10-10] MEDS ORDERED: MUCI600T31 PO (12:50)
[2024-10-10] MEDS ORDERED: MORP1SOL5 PO (12:50)
[2024-10-10] MEDS ORDERED: HYOS125TA PO (12:50)
[2024-10-10] MEDS ORDERED: ATIV1TAB10 PO (12:50)
== END 2024-10-10 13:20 ==
LOC: M ED 12:58 → M ED INP 12:59 → M MS5PR 16:17
PROVIDERS: ADMIT Internal Medicine; ATTEND Internal Medicine
DX: R06.09 Other forms of dyspnea (principal); J44.9 Chronic obstructive pulmonary disease, unspecified; R19.7 Diarrhea, unspecified; R74.01 Elevation of levels of liver transaminase levels; F10.10 Alcohol abuse, uncomplicated; I10 Essential (primary) hypertension; F17.210 Nicotine dependence, cigarettes, uncomplicated; N40.0 Benign prostatic hyperplasia without lower urinary tract symptoms; Z79.2 Long term (current) use of antibiotics; Z79.52 Long term (current) use of systemic steroids; Z79.899 Other long term (current) drug therapy
CPT/HCPCS: 36415; 80048; 83735; 85025; 94640; 96372; J1596; J1650; J7512